=== PATIENT | female | born 1995 | race African-American/Black ===

== ENCOUNTER 2017-08-18 06:09 | Inpatient (IN) | payer SELFPAY ==
[2017-08-18] MEDS ORDERED: Carboprost Tromethamine 250 MCG/1 ML Amp IM PRN (06:22)
[2017-08-18] MEDS ORDERED: Water For Irrigation,Sterile 1,000 ML Container IRR PRN (06:22)
[2017-08-18] MEDS ORDERED: Misoprostol 200 MCG Tab PO PRN (06:22)
[2017-08-18] MEDS ORDERED: Methylergonovine 0.2 MG/1 ML Amp IM PRN (06:22)
[2017-08-18] MEDS ORDERED: Butorphanol 1 MG/ML SDV IVPUSH PRN (06:22)
[2017-08-18] MEDS ORDERED: Sodium Chloride 0.9% 2.5 ML Syringe FLUSH PRN (06:22)
[2017-08-18] MEDS ORDERED: Lidocaine 1% 50 ML MDV INJECT PRN (06:22)
[2017-08-18] MEDS ORDERED: Nalbuphine 10 MG/1 ML Vial IVPUSH PRN (06:22)
[2017-08-18] MEDS ORDERED: Sodium Chloride 0.9% 10 ML Syringe FLUSH PRN (06:22)
[2017-08-18] MEDS ORDERED: Oxytocin/0.9 % Sodium Chloride 30 UNIT/500 ML BAG IV SCH (06:30)
[2017-08-18] MEDS ORDERED: Lactated Ringers 1,000 ML IV SCH (06:30)
[2017-08-18] MEDS ORDERED: Docusate Sodium 100 MG Cap PO PRN (06:58)
[2017-08-18] MEDS ORDERED: oxyCODONE 5 MG Tab PO PRN (06:58)
[2017-08-18] MEDS ORDERED: Acetaminophen 500 MG Tab PO PRN ×2 (06:58)
[2017-08-18] MEDS ORDERED: Ibuprofen 400 MG Tab PO PRN (06:58)
[2017-08-18] MEDS ORDERED: Lanolin 100% Cream 7 GM Tube TOP PRN (06:58)
[2017-08-18] MEDS ORDERED: Bisacodyl 10 MG Supp RECTAL PRN (06:58)
[2017-08-18] MEDS ORDERED: Witch Hazel Medicated Pads 40/Jar TOP PRN (06:58)
[2017-08-18] MEDS ORDERED: Benzocaine/Menthol 20%-0.5% Spray 78 GM Cannister TOP PRN (06:58)
--- NOTE | 2017-08-18 06:58 | PCM.LDHP ---
L&D History of Present Illness - General Date of Service: 08/18/17 Admit Problem/Dx: Patient Status Order with Admit Dx/Problem 08/18/17 06:22 Patient Status [ADT] Routine Admission Diagnosis/Problem Admission Diagnosis/Problem Source of Information: Patient History Limitations: Reports: No Limitations - History of Present Illness Improves with: Reports: None Worsens with: Reports: None Associated Symptoms: Reports: N - Related Data Allergies/Adverse Reactions: Allergies Allergy/AdvReac Type Severity Reaction Status Date / Time No Known Allergies Allergy Verified 07/31/17 14:07 H&P Review of Systems - Review of Systems: Review Of Systems: See Below General: Reports: No Symptoms HEENT: Reports: No Symptoms Pulmonary: Reports: No Symptoms Cardiovascular: Reports: No Symptoms Gastrointestinal: Reports: No Symptoms Genitourinary: Reports: No Symptoms Musculoskeletal: Reports: No Symptoms Skin: Reports: No Symptoms Psychiatric: Reports: No Symptoms Neurological: Reports: No Symptoms Hematologic/Lymphatic: Reports: No Symptoms Immunologic: Reports: No Symptoms L&D Exam - Exam Exam: See Below - OB Specific Contraction Intensity: Moderate to Strong Movement: Active Heart Tones: Present Presentation: Vertex - Swanson Score Swanson Score Cervix Position: Anterior Swanson Score Consistency: Soft Swanson Score Effacement: >80% Swanson Score Dilation: > 5 cm Swanson Score Infant's Station: +1, +2 Swanson Score Total: 13 - Exam General: Alert, Oriented HEENT: PERRLA, Conjunctiva Clear, EACs Clear, EOMI, Hearing Intact, Mucosa Moist & [place], Nares Patent, Normal Nasal Septum, Posterior Pharynx Clear, TMs Clear Neck: Supple, Trachea Midline Lungs: Clear to Auscultation, Normal Respiratory Effort Cardiovascular: Regular Rate, Regular Rhythm GI/Abdominal Exam: Normal Bowel Sounds, Soft, Non-Tender, No Organomegaly, No Distention, No Abnormal Bruit, No Mass, Pelvis Stable Rectal Exam: Normal Exam, Normal Rectal Tone Genitourinary: Normal external exam, Normal bimanual exam, Normal speculum exam Back Exam: Normal Inspection, Full Range of Motion Extremities: Normal Inspection, Normal Range of Motion, Non-Tender, No Pedal Edema, Normal Capillary Refill Skin: Warm, Dry, Intact Neurological: Cranial Nerves Intact, Reflexes Equal Bilateral Psychiatric: Alert, Normal Affect, Normal Mood - Patient Data Lab Results Last 24 hrs: Laboratory Results - last 24 hr 08/18/17 Range/Units 06:28 WBC 15.75 H (4.0-11.0) K/uL RBC 3.48 L (4.30-5.90) M/uL Hgb 8.5 L (12.0-16.0) g/dL Hct 26.4 L (36.0-46.0) % MCV 75.9 L (80.0-98.0) fL MCH 24.4 L (27.0-32.0) pg MCHC 32.2 (31.0-37.0) g/dL RDW Std Deviation 40.0 (28.0-62.0) fl RDW Coeff of Alessandra 14 (11.0-15.0) % Plt Count 270 (150-400) K/uL MPV 8.90 (7.40-12.00) fL Nucleated RBC % 0.0 /100WBC Nucleated RBCs # 0 K/uL Result Diagrams: 08/18/17 06:28 Problem List Initiated/Reviewed/Updated: Yes Orders Last 24hrs: Active Orders 24 hr Category Date Time Status Patient Status [ADT] Routine ADT 08/18/17 06:22 Active Heart Tones [RC] CONTINUOUS Care 08/18/17 06:22 Active Non Stress Test [RC] PER UNIT ROUTINE Care 08/18/17 06:22 Active May Shower [RC] ASDIRECTED Care 08/18/17 06:22 Active Notify Provider [RC] PRN Care 08/18/17 06:22 Active Up ad Charito [RC] ASDIRECTED Care 08/18/17 06:22 Active Vaginal Exam [RC] PRN Care 08/18/17 06:22 Active Vital Signs [RC] PER UNIT ROUTINE Care 08/18/17 06:22 Active TYPE AND SCREEN [BBK] Routine Lab 08/18/17 06:28 Received Butorphanol [Stadol] Med 08/18/17 06:22 Active 1 mg IVPUSH Q1H PRN Carboprost Tromethamine [Hemabate DS] Med 08/18/17 06:22 Active 250 mcg IM ASDIRECTED PRN Lactated Ringers [Ringers, Lactated] 1,000 ml Med 08/18/17 06:30 Active IV ASDIRECTED Lidocaine 1% [Xylocaine 1%] Med 08/18/17 06:22 Active 50 ml INJECT .ONCE PRN Methylergonovine [Methergine] Med 08/18/17 06:22 Active 0.2 mg IM ASDIRECTED PRN Misoprostol [Cytotec] Med 08/18/17 06:22 Active 200 mcg PO .ONCE PRN Nalbuphine [Nubain] Med 08/18/17 06:22 Active 10 mg IVPUSH Q1H PRN Oxytocin/0.9 % Sodium Chloride [Oxytocin 30 Unit/500 ML Med 08/18/17 06:30 Active -NS] 30 unit in 500 ml IV TITRATE Sodium Chloride 0.9% [Saline Flush] Med 08/18/17 06:22 Active 10 ml FLUSH ASDIRECTED PRN Sodium Chloride 0.9% [Saline Flush] Med 08/18/17 06:22 Active 2.5 ml FLUSH ASDIRECTED PRN Water For Irrigation,Sterile [Sterile Water for Med 08/18/17 06:22 Active Irrigation] 1,000 ml IRR ASDIRECTED PRN Scalp Electrode [WOMSER] Per Unit Routine Oth 08/18/17 06:22 Ordered Peripheral IV Insertion Adult [OM.PC] Routine Oth 08/18/17 06:22 Ordered Resuscitation Status Routine Resus Stat 08/18/17 06:22 Ordered Medication Orders Butorphanol Tartrate (Stadol) 1 mg IVPUSH Q1H PRN PRN Reason: Pain Carboprost Tromethamine (Hemabate Ds) 250 mcg IM ASDIRECTED PRN PRN Reason: Post Hemorrhage Lactated Ringer's (Ringers, Lactated) 1,000 mls @ 150 mls/hr IV ASDIRECTED FE Oxytocin/Sodium Chloride (Oxytocin 30 Unit/500 Ml-Ns) 30 unit in 500 mls @ 999 mls/hr IV TITRATE FE Lidocaine HCl (Xylocaine 1%) 50 ml INJECT .ONCE PRN PRN Reason: Laceration repair Methylergonovine Maleate (Methergine) 0.2 mg IM ASDIRECTED PRN PRN Reason: Post Hemorrhage Misoprostol (Cytotec) 200 mcg PO .ONCE PRN PRN Reason: Post Hemorrhage Nalbuphine HCl (Nubain) 10 mg IVPUSH Q1H PRN PRN Reason: Pain (severe 7-10) Sodium Chloride (Saline Flush) 10 ml FLUSH ASDIRECTED PRN PRN Reason: Keep Vein Open Sodium Chloride (Saline Flush) 2.5 ml FLUSH ASDIRECTED PRN PRN Reason: Keep Vein Open Sterile Water (Sterile Water For Irrigation) 1,000 ml IRR ASDIRECTED PRN PRN Reason: delivery Assessment/Plan Comment:: On care. Hx of prematur delivery before. She think LMS is in mid 2016.
[2017-08-18] MEDS: Ibuprofen 800 MG Tab PO PRN ×2 (07:30→16:05)
--- NOTE | 2017-08-18 12:36 | OR ---
SURGEON: Eduard Valencia MD DATE OF PROCEDURE: Ms. Rice is 26. She had no care at all in this . She had previously 2 premature births. She presented to Labor and Delivery in active labor and she was complete, complete vertex and +1 to +2. According to the brief history from the patient, she thinks her last period is around January 20, 2017, which is would make her about 26-27 weeks. The patient is totally uncooperative. The heart rate was a category 1 and the patient was able to accomplish normal spontaneous vaginal delivery of male fetus, clear amniotic fluid without any problem. There was no tear. There was no laceration. The fetus cried immediately and handed to the finish off operator Dr. Johnson who was present at the time of the delivery for resuscitation. The score and weight are not available at this time. The placenta delivered spontaneous, complete, and intact and sent for histopathology. ESTIMATED BLOOD LOSS: 200 to 250 mL. There was no complication in the and a brief period of labor the patient was here. EVARISTO / SARAH /[id number]
--- NOTE | 2017-08-19 10:56 | PCM.DCSUM1 ---
Discharge Summary - Discharge Data Discharge Date: 08/19/17 Discharge Disposition: Home, Self-Care 01 Condition: Good - Patient Instructions Diet: Usual Diet as Tolerated Activity: As Tolerated Driving: Do Not Drive Showering/Bathing: May Shower - Discharge Plan - General Info Date of Service: 08/19/17 Functional Status: Reports: Pain Controlled - Review of Systems General: Reports: No Symptoms HEENT: Reports: No Symptoms Pulmonary: Reports: No Symptoms Cardiovascular: Reports: No Symptoms Gastrointestinal: Reports: No Symptoms Genitourinary: Reports: No Symptoms Musculoskeletal: Reports: No Symptoms Skin: Reports: No Symptoms Neurological: Reports: No Symptoms Psychiatric: Reports: No Symptoms - Patient Data Vitals - Most Recent: Last Vital Signs Temp 37.1 C 08/19/17 08:10 Pulse 64 08/19/17 08:10 Resp 14 08/19/17 08:10 BP 111/69 08/19/17 08:10 Pulse Ox 99 08/19/17 08:10 Weight - Most Recent: 57.153 kg Lab Results - Last 24 hrs: Laboratory Results - last 24 hr 08/19/17 Range/Units 05:11 Hgb 7.5 L (12.0-16.0) g/dL Hct 23.8 L (36.0-46.0) % Med Orders - Current: Current Medications Acetaminophen (Tylenol Extra Strength) 500 mg PO Q4H PRN PRN Reason: Pain Acetaminophen (Tylenol Extra Strength) 1,000 mg PO Q4H PRN PRN Reason: Pain Last Admin: 08/18/17 07:30 Dose: 1,000 mg Benzocaine/Menthol (Dermoplast Pain Relief 20%-0.5% [place]) 78 gm TOP ASDIRECTED PRN PRN Reason: Perineal Comfort Measure Bisacodyl (Dulcolax) 10 mg RECTAL .ONCE PRN PRN Reason: Constipation Butorphanol Tartrate (Stadol) 1 mg IVPUSH Q1H PRN PRN Reason: Pain Carboprost Tromethamine (Hemabate Ds) 250 mcg IM ASDIRECTED PRN PRN Reason: Post Hemorrhage Docusate Sodium (Colace) 100 mg PO BID PRN PRN Reason: Constipation Last Admin: 08/18/17 21:08 Dose: 100 mg Emollient Ointment (Lansinoh Hpa) 0 gm TOP ASDIRECTED PRN PRN Reason: Sore Nipples Lactated Ringer's (Ringers, Lactated) 1,000 mls @ 150 mls/hr IV ASDIRECTED [facility] Last Admin: 08/18/17 06:30 Dose: 150 mls/hr Oxytocin/Sodium Chloride (Oxytocin 30 Unit/500 Ml-Ns) 30 unit in 500 mls @ 999 mls/hr IV TITRATE [facility] Last Admin: 08/18/17 06:47 Dose: 999 mls/hr Ibuprofen (Motrin) 400 mg PO Q4H PRN PRN Reason: Pain Ibuprofen (Motrin) 800 mg PO Q6H PRN PRN Reason: Pain Last Admin: 08/18/17 16:05 Dose: 800 mg Lidocaine HCl (Xylocaine 1%) 50 ml INJECT .ONCE PRN PRN Reason: Laceration repair Methylergonovine Maleate (Methergine) 0.2 mg IM ASDIRECTED PRN PRN Reason: Post Hemorrhage Misoprostol (Cytotec) 200 mcg PO .ONCE PRN PRN Reason: Post Hemorrhage Nalbuphine HCl (Nubain) 10 mg IVPUSH Q1H PRN PRN Reason: Pain (severe 7-10) Oxycodone HCl (Oxycodone) 5 mg PO Q2H PRN PRN Reason: Pain Sodium Chloride (Saline Flush) 10 ml FLUSH ASDIRECTED PRN PRN Reason: Keep Vein Open Sodium Chloride (Saline Flush) 2.5 ml FLUSH ASDIRECTED PRN PRN Reason: Keep Vein Open Sterile Water (Sterile Water For Irrigation) 1,000 ml IRR ASDIRECTED PRN PRN Reason: delivery Witch [place] (Tucks) 1 pad TOP ASDIRECTED PRN PRN Reason: comfort care - Exam General: Reports: Alert, Oriented HEENT: Reports: Pupils Equal, Pupils Reactive, EOMI, Mucous Membr. Moist/[place] Neck: Reports: Supple Lungs: Reports: Clear to Auscultation, Normal Respiratory Effort Cardiovascular: Reports: Regular Rate, Regular Rhythm GI/Abdominal Exam: Normal Bowel Sounds, Soft, Non-Tender, No Organomegaly, No Distention, No Abnormal Bruit, No Mass, Pelvis Stable (Female) Exam: Normal External Exam, Normal Speculum Exam, Normal Bimanual Exam Rectal (Female) Exam: Normal Exam, Normal Rectal Tone Back Exam: Reports: Normal Inspection, Full Range of Motion Extremities: Normal Inspection, Normal Range of Motion, Non-Tender, No Pedal Edema, Normal Capillary Refill Skin: Reports: Warm, Dry, Intact Wound/Incisions: Reports: Healing Well Neurological: Reports: No New Focal Deficit Psy/Mental Status: Reports: Alert, Normal Affect, Normal Mood *Q Meaningful Use (DIS) - VTE *Q VTE Criteria *Q: - Stroke *Q Stroke Criteria *Q: - AMI *Q AMI Criteria *Q:
[2017-08-19] MEDS: Ibuprofen 800 MG Tab PO PRN (11:56)
== END 2017-08-19 12:05 | disposition home or self-care (01) | DRG 775 ==
LOC: MW.OBCHECK 06:09 → MW.OB 06:11 → MW.OBCHECK 06:22 → MW.OB 06:22 → OBSVTOIN 06:44 → MW.OB 11:30
PROVIDERS: ADMIT Obstetrics & Gynecology; ATTEND Obstetrics & Gynecology
PROC: 10E0XZZ Delivery of Products of Conception, External Approach (ICD-10-PCS; principal; 2017-08-18)
DX: O60.12X0 Preterm labor second trimester with preterm delivery second trimester, not applicable or unspecified (principal); O09.32 Supervision of pregnancy with insufficient antenatal care, second trimester; Z3A.27 27 weeks gestation of pregnancy; Z37.0 Single live birth
CPT/HCPCS: 36415; 80305; 85014; 85018; 85027; 86592; 86762; 86850; 86900; 86901; 87340; 87389; 88305; A9270-GY; J2590; J7120

== ENCOUNTER 2018-01-18 14:22 | Emergency (ER) | payer MEDICAID ==
--- NOTE | 2018-01-18 14:46 | EDM.PDOC ---
ED HPI GENERAL MEDICAL PROBLEM - General Chief Complaint: Abdominal Pain Stated Complaint: 15 WKS PAIN ISSUES Time Seen by Provider: 01/18/18 14:37 - History of Present Illness INITIAL COMMENTS - FREE TEXT/NARRATIVE: HISTORY AND PHYSICAL: History of present illness: The patient is a 22-year-old female who is a 6 para [id number] at approximately 15 weeks who presents with complaints of lower abdominal pelvic pain without vaginal bleeding that started today. The patient says she has not had sexual intercourse recently and she has not had vomiting or diarrhea and no urinary complaints. She follows at [facility]. She says that she feels woozy and just doesn't feel right but she is not passing out or blacking out and has no flank pain no chest pain no fevers chills chest pain or shortness of breath. Not taking anything for the pain. Review of systems: As per history of present illness and below otherwise all systems reviewed and negative. Past medical history: As per history of present illness and as reviewed below otherwise noncontributory. Surgical history: As per history of present illness and as reviewed below otherwise noncontributory. Social history: No reported history of drug or alcohol abuse. Family history: As per history of present illness and as reviewed below otherwise noncontributory. Physical exam: Dermal: Well-developed well-nourished thin female who is nontoxic and vital signs have been reviewed by me. Patient moves easily in the ED without distress HEENT: Atraumatic, normocephalic, , negative for conjunctival pallor or scleral icterus, mucous membranes moist, throat clear, neck supple, nontender, trachea midline. Lungs: Clear to auscultation, breath sounds equal bilaterally, chest nontender. Heart: S1S2, regular and rhythm no overt murmurs Abdomen: Soft, nondistended, bowel sounds are normoactive and there is mild discomfort with deep palpation in the lower abdomen area without localization right or left. Negative for masses or hepatosplenomegaly. Negative for costovertebral tenderness. Pelvis: Stable nontender. Genitourinary: Deferred. Rectal: Deferred. Extremities: Atraumatic, negative for cords or calf pain. Neurovascular unremarkable. Neuro: Awake, alert, oriented. Cranial nerves II through XII unremarkable. Cerebellum unremarkable. Motor and sensory unremarkable throughout. Exam nonfocal. Diagnostics: heart tones per nursing= 150s UA urine culture orthostatic vitals Pelvic ultrasound Therapeutics: [] This was discussed with Dr. Russ at 1535. She would like an ultrasound to be performed for cervical length and to be recontacted if it's less than 2.5 cm. Impression: Round ligament pain, UTI Definitive disposition and diagnosis as appropriate pending reevaluation and review of above. Lower Abdominal Pain Score (Numeric/FACES): 10 - Related Data Allergies Allergy/AdvReac Type Severity Reaction Status Date / Time No Known Allergies Allergy Verified 01/18/18 14:29 Home Meds: Home Meds . [No Known Home Meds] 01/18/18 [History] Past Medical History - Past Health History Medical/Surgical History: Denies Medical/Surgical History Hematologic History: Reports: Anemia - Infectious Disease History Infectious Disease History: Reports: None Social & Family History - Family History OBGYN: Reports: - Tobacco Use Smoking Status *Q: Never Smoker - Caffeine Use Caffeine Use: Reports: Coffee - Recreational Drug Use Recreational Drug Use: No ED ROS GENERAL - Review of Systems Review Of Systems: ROS reveals no pertinent complaints other than HPI. ED EXAM, GENERAL - Physical Exam Exam: See Below (See dictation) Course - Vital Signs Last Recorded V/S: Last Vital Signs Temp 36.8 C 01/18/18 14:30 Pulse 60 01/18/18 14:30 Resp 15 01/18/18 14:30 BP 138/38 L 01/18/18 14:30 Pulse Ox 98 01/18/18 14:30 Orthostatic Blood Pressure [ 133/78 Standing] Orthostatic Blood Pressure [ 127/78 Supine] - Orders/Labs/Meds Orders: Active Orders 24 hr Category Date Time Status Orthostatic Vital Signs [RC] ASDIRECTED Care 01/18/18 14:46 Active CULTURE URINE [RM] Stat Lab 01/18/18 14:45 Received Labs: Laboratory Tests 01/18/18 Range/Units 14:45 Urine Color YELLOW Urine Appearance SLT CLOUDY Urine pH 6.0 (5.0-8.0) Ur Specific [place] >= 1.030 (1.001-1.035) Urine Protein NEGATIVE (NEGATIVE) mg/dL Urine Glucose (UA) NEGATIVE (NEGATIVE) mg/dL Urine Ketones NEGATIVE (NEGATIVE) mg/dL Urine Occult Blood NEGATIVE (NEGATIVE) Urine Nitrite NEGATIVE (NEGATIVE) Urine Bilirubin NEGATIVE (NEGATIVE) Urine Urobilinogen 0.2 (<2.0) EU/dL Ur Leukocyte Esterase TRACE (NEGATIVE) Urine RBC 0-2 (0-2/HPF) Urine WBC 3-5 (0-5/HPF) Ur Epithelial Cells MODERATE (NONE-FEW) Urine Bacteria FEW (NEGATIVE) Departure - Departure Time of Disposition: 16:27 Disposition: Home, Self-Care 01 Condition: Good Clinical Impression: Pain of round ligament UTI (urinary tract infection) Qualifiers: Urinary tract infection type: site unspecified Hematuria presence: without hematuria Qualified Code(s): N39.0 - Urinary tract infection, site not specified - Discharge Information Referrals: Nestor Tran MD [Primary Care Provider] - Forms: ED Department Discharge Additional Instructions: The following information is given to patients seen in the emergency department who are being discharged to home. This information is to outline your options for follow-up care. We provide all patients seen in our emergency department with a follow-up referral. The need for follow-up, as well as the timing and circumstances, are variable depending upon the specifics of your emergency department visit. If you don't have a primary care physician on staff, we will provide you with a referral. We always advise you to contact your personal physician following an emergency department visit to inform them of the circumstance of the visit and for follow-up with them and/or the need for any referrals to a consulting specialist. The emergency department will also refer you to a specialist when appropriate. This referral assures that you have the opportunity for followup care with a specialist. All of these measure are taken in an effort to provide you with optimal care, which includes your followup. Under all circumstances we always encourage you to contact your private physician who remains a resource for coordinating your care. When calling for followup care, please make the office aware that this follow-up is from your recent emergency room visit. If for any reason you are refused follow-up, please contact the [facility] emergency department at and ask to speak to the emergency department charge nurse. [address] [address] These keep your appointment next week in the clinic . Please take antibiotics for the UTI until they're finished. Push hydration rest and return to ER as needed and as discussed. - My Orders Last 24 Hours: My Active Orders 01/18/18 14:45 CULTURE URINE [RM] Stat 01/18/18 14:46 Orthostatic Vital Signs [RC] ASDIRECTED - Assessment/Plan Last 24 Hours: My Active Orders 01/18/18 14:45 CULTURE URINE [RM] Stat 01/18/18 14:46 Orthostatic Vital Signs [RC] ASDIRECTED
--- NOTE | 2018-01-18 16:21 | US ---
EXAMINATION: Transvaginal symmetric ultrasound HISTORY: Pain COMPARISON: None TECHNIQUE: Grayscale and M-mode imaging obtained. FINDINGS/IMPRESSION: There is a single live intrauterine with a heart rate of 154 bpm. The cervical length measured by technologist is likely artificially exaggerated however estimation of the cervical length suggests a cervix of approximately 3.3 cm.
== END 2018-01-18 17:05 | disposition home or self-care (01) ==
LOC: MW.ED 14:22
DX: O23.42 Unspecified infection of urinary tract in pregnancy, second trimester (principal); Z3A.15 15 weeks gestation of pregnancy
CPT/HCPCS: 76817; 76817-26; 81001; 87086; 99284-25

== ENCOUNTER 2018-04-02 16:14 | Observation (INO) | payer SELFPAY ==
--- NOTE | 2018-04-02 16:28 | EDM.PDOC ---
ED HPI GENERAL MEDICAL PROBLEM - General Chief Complaint: Abdominal Pain Stated Complaint: FALL Time Seen by Provider: 04/02/18 16:28 Source of Information: Reports: Patient - History of Present Illness INITIAL COMMENTS - FREE TEXT/NARRATIVE: HISTORY AND PHYSICAL: History of present illness: [22-year-old female presents at 23 weeks with IUP Followed by Liliya Hong] Patient has been lightheaded and dizzy over the last couple of days she has previous hemoglobin on file she is appointed lower after a week Minimal exertion she passed out and fell today No fever nausea vomiting chills sweats Review of systems: As per history of present illness and below otherwise all systems reviewed and negative. Past medical history: As per history of present illness and as reviewed below otherwise noncontributory. Surgical history: As per history of present illness and as reviewed below otherwise noncontributory. Social history: No reported history of drug or alcohol abuse. Family history: As per history of present illness and as reviewed below otherwise noncontributory. Physical exam: HEENT: Atraumatic, normocephalic, pupils reactive, negative for conjunctival pallor or scleral icterus, mucous membranes moist, throat clear, neck supple, nontender, trachea midline. Lungs: Clear to auscultation, breath sounds equal bilaterally, chest nontender. Heart: S1S2, regular, negative for clicks, rubs, or JVD. Abdomen: Soft, nondistended, nontender. Negative for masses or hepatosplenomegaly. Negative for costovertebral tenderness. Pelvis: Stable nontender. Genitourinary: Deferred. Rectal: Deferred. Extremities: Atraumatic, negative for cords or calf pain. Neurovascular unremarkable. Neuro: Awake, alert, oriented. Cranial nerves II through XII unremarkable. Cerebellum unremarkable. Motor and sensory unremarkable throughout. Exam nonfocal. Diagnostics: [CBC CMP UA type and screen ]OB ultrasound performed Therapeutics: [Liter normal saline bolus followed by 1 25 mL per hour ] Dr. Calderón consult to evaluate and treat determined disposition Impression: [Symptomatic anemia [address] Calderón consult Chronic history of baseline ] Definitive disposition and diagnosis as appropriate pending reevaluation and review of above. abdomen Pain Score (Numeric/FACES): 10 - Related Data Allergies Allergy/AdvReac Type Severity Reaction Status Date / Time No Known Allergies Allergy Verified 09/25/18 16:25 Home Meds: Home Meds Iron 18 mg PO BID 03/18/18 [History] Ondansetron HCl [Zofran] 4 mg PO DAILY 03/18/18 [History] Pnv No.122/Iron/Folic Acid [ Multi Tablet] 1 each PO DAILY 03/18/18 [ History] Past Medical History - Past Health History Medical/Surgical History: Denies Medical/Surgical History Hematologic History: Reports: Anemia - Infectious Disease History Infectious Disease History: Reports: None Social & Family History - Family History OBGYN: Reports: - Caffeine Use Caffeine Use: Reports: Coffee ED ROS GENERAL - Review of Systems Review Of Systems: See Below ED EXAM, GENERAL - Physical Exam Exam: See Below Course - Vital Signs Last Recorded V/S: Last Vital Signs Temp 97.4 F 04/02/18 17:41 Pulse 76 04/02/18 17:41 Resp 18 04/02/18 17:41 BP 107/69 04/02/18 17:41 Pulse Ox 99 04/02/18 17:41 - Orders/Labs/Meds Labs: Laboratory Tests 04/02/18 04/02/18 04/02/18 Range/Units 17:00 17:00 17:08 WBC 12.78 H (4.0-11.0) K/uL RBC 3.34 L (4.30-5.90) M/uL Hgb 7.5 L (12.0-16.0) g/dL Hct 24.2 L (36.0-46.0) % MCV 72.5 L (80.0-98.0) fL MCH 22.5 L (27.0-32.0) pg MCHC 31.0 (31.0-37.0) g/dL RDW Std Deviation 41.2 (28.0-62.0) fl RDW Coeff of Alessandra 15 (11.0-15.0) % Plt Count 298 (150-400) K/uL MPV 9.10 (7.40-12.00) fL Neut % (Auto) 79.4 (48.0-80.0) % Lymph % (Auto) 11.5 L (16.0-40.0) % Motley % (Auto) 5.7 (0.0-15.0) % Eos % (Auto) 3.2 (0.0-7.0) % Baso % (Auto) 0.2 (0.0-1.5) % Neut # (Auto) 10.2 H (1.4-5.7) K/uL Lymph # (Auto) 1.5 (0.6-2.4) K/uL Motley # (Auto) 0.7 (0.0-0.8) K/uL Eos # (Auto) 0.4 (0.0-0.7) K/uL Baso # (Auto) 0.0 (0.0-0.1) K/uL Nucleated RBC % 0.0 /100WBC Nucleated RBCs # 0 K/uL Sodium (136-145) mmol/L Potassium (3.5-5.1) mmol/L Chloride (98-107) mmol/L Carbon Dioxide (21.0-32.0) mmol/L BUN (7.0-18.0) mg/dL Creatinine (0.6-1.0) mg/dL Est Cr Clr Drug Dosing mL/min Estimated GFR (MDRD) ml/min Glucose (74-106) mg/dL Calcium (8.5-10.1) mg/dL Iron (50-175) ug/dL TIBC (250-450) ug/dL % Saturation (20-55) % Ferritin (8-252) ng/mL Total Bilirubin (0.2-1.0) mg/dL AST (15-37) IU/L ALT (14-63) IU/L Alkaline Phosphatase (46-116) U/L Troponin I (0.000-0.056) ng/mL Total Protein (6.4-8.2) g/dL Albumin (3.4-5.0) g/dL Globulin (2.0-3.5) g/dL Albumin/Globulin Ratio (1.3-2.8) Lipase (73-393) U/L Urine Color YELLOW Urine Appearance SLT CLOUDY Urine pH 6.0 (5.0-8.0) Ur Specific Eure >= 1.030 (1.001-1.035) Urine Protein 100 (NEGATIVE) mg/dL Urine Glucose (UA) NEGATIVE (NEGATIVE) mg/dL Urine Ketones TRACE H (NEGATIVE) mg/dL Urine Occult Blood NEGATIVE (NEGATIVE) Urine Nitrite NEGATIVE (NEGATIVE) Urine Bilirubin NEGATIVE (NEGATIVE) Urine Urobilinogen 0.2 (<2.0) EU/dL Ur Leukocyte Esterase SMALL (NEGATIVE) Urine RBC 0-2 (0-2/HPF) Urine WBC 15-18 (0-5/HPF) Ur Epithelial Cells MANY (NONE-FEW) Urine Bacteria 4+ H (NEGATIVE) Urine Mucus LIGHT (NONE-MOD) Urine HCG, Qual POSITIVE (NEGATIVE) Blood Type Antibody Screen 04/02/18 04/02/18 04/02/18 Range/Units 17:08 17:08 18:55 WBC (4.0-11.0) K/uL RBC (4.30-5.90) M/uL Hgb (12.0-16.0) g/dL Hct (36.0-46.0) % MCV (80.0-98.0) fL MCH (27.0-32.0) pg MCHC (31.0-37.0) g/dL RDW Std Deviation (28.0-62.0) fl RDW Coeff of Alessandra (11.0-15.0) % Plt Count (150-400) K/uL MPV (7.40-12.00) fL Neut % (Auto) (48.0-80.0) % Lymph % (Auto) (16.0-40.0) % Motley % (Auto) (0.0-15.0) % Eos % (Auto) (0.0-7.0) % Baso % (Auto) (0.0-1.5) % Neut # (Auto) (1.4-5.7) K/uL Lymph # (Auto) (0.6-2.4) K/uL Motley # (Auto) (0.0-0.8) K/uL Eos # (Auto) (0.0-0.7) K/uL Baso # (Auto) (0.0-0.1) K/uL Nucleated RBC % /100WBC Nucleated RBCs # K/uL Sodium 136 (136-145) mmol/L Potassium 3.8 (3.5-5.1) mmol/L Chloride 104 (98-107) mmol/L Carbon Dioxide 23.4 (21.0-32.0) mmol/L BUN 9 (7.0-18.0) mg/dL Creatinine 0.8 (0.6-1.0) mg/dL Est Cr Clr Drug Dosing 94.44 mL/min Estimated GFR (MDRD) > 60.0 ml/min Glucose 88 (74-106) mg/dL Calcium 8.7 (8.5-10.1) mg/dL Iron 15 L (50-175) ug/dL TIBC 547 H (250-450) ug/dL % Saturation 2.74 L (20-55) % Ferritin 5 L (8-252) ng/mL Total Bilirubin 0.2 (0.2-1.0) mg/dL AST 24 (15-37) IU/L ALT 20 (14-63) IU/L Alkaline Phosphatase 132 H (46-116) U/L Troponin I < 0.050 (0.000-0.056) ng/mL Total Protein 6.9 (6.4-8.2) g/dL Albumin 2.8 L (3.4-5.0) g/dL Globulin 4.1 H (2.0-3.5) g/dL Albumin/Globulin Ratio 0.7 L (1.3-2.8) Lipase 166 (73-393) U/L Urine Color Urine Appearance Urine pH (5.0-8.0) Ur Specific Eure (1.001-1.035) Urine Protein (NEGATIVE) mg/dL Urine Glucose (UA) (NEGATIVE) mg/dL Urine Ketones (NEGATIVE) mg/dL Urine Occult Blood (NEGATIVE) Urine Nitrite (NEGATIVE) Urine Bilirubin (NEGATIVE) Urine Urobilinogen (<2.0) EU/dL Ur Leukocyte Esterase (NEGATIVE) Urine RBC (0-2/HPF) Urine WBC (0-5/HPF) Ur Epithelial Cells (NONE-FEW) Urine Bacteria (NEGATIVE) Urine Mucus (NONE-MOD) Urine HCG, Qual (NEGATIVE) Blood Type O POSITIVE Antibody Screen NEGATIVE Meds: Medications Discontinued Medications Generic Name Dose Route Start Last Admin Trade Name Freq PRN Reason Stop Dose Admin Acetaminophen 1,000 mg 04/03/18 00:06 Tylenol Extra Strength PO 04/03/18 00:07 ONETIME ONE Carboprost Tromethamine 250 mcg 04/02/18 20:14 Hemabate Ds IM ASDIRECTED PRN Post Hemorrhage Sodium Chloride 1,000 mls @ 125 mls/hr 04/02/18 19:15 04/03/18 03:45 Normal Saline IV 125 mls/hr STAT EF Administration Lactated Ringer's 1,000 mls @ 150 mls/hr 04/02/18 20:15 Ringers, Lactated IV ASDIRECTED FE Iron Sucrose 100 mg/ Sodium 105 mls @ 400 mls/hr 04/03/18 08:21 04/03/18 08: 50 Chloride IV 04/03/18 08:36 400 mls/hr ONETIME ONE Administration Sodium Chloride 10 ml 04/02/18 20:14 Saline Flush FLUSH ASDIRECTED PRN Keep Vein Open Sodium Chloride 2.5 ml 04/02/18 20:14 Saline Flush FLUSH ASDIRECTED PRN Keep Vein Open Departure - Departure Time of Disposition: 08:32 Disposition: Admitted As Inpatient 65 Condition: Good Clinical Impression: Anemia - Discharge Information
[2018-04-02 17:47] LABS: CHLORIDE,CL 104 mmol/L (98-107); SODIUM,NA 136 mmol/L (136-145)
[2018-04-02] MEDS: Sodium Chloride 0.9% 1,000 ML IV SCH (19:45)
[2018-04-02] MEDS ORDERED: Carboprost Tromethamine 250 MCG/1 ML Amp IM PRN (20:14)
[2018-04-02] MEDS ORDERED: Sodium Chloride 0.9% 10 ML Syringe FLUSH PRN (20:14)
[2018-04-02] MEDS ORDERED: Sodium Chloride 0.9% 2.5 ML Syringe FLUSH PRN (20:14)
[2018-04-02] MEDS ORDERED: Lactated Ringers 1,000 ML IV SCH (20:15)
--- NOTE | 2018-04-02 20:29 | PCM.LDHP ---
L&D History of Present Illness - General Date of Service: 04/02/18 Admit Problem/Dx: Patient Status Order with Admit Dx/Problem 04/02/18 20:14 Patient Status [ADT] Routine Admission Diagnosis/Problem Admission Diagnosis/Problem Anemia affecting 04/02/18 20:24 22 yo at ~26 weeks GA with high risk (4 previous births and history of 31 week demise) presents to ER after attempting to hang something up and while on her tiptoes, she became light headed and lost her balance. She fell and hit her abdomen on a vase. She denies contractions, vaginal bleeding. She notes movement. She has chronic anemia, hemoglobin has been around 8 and tonight is 7.5. Platelets are normal. Received iron transfusions 2 pregnancies ago. She has not been compliant with care this month due to medicaid lapsing. She has been taking her progesterone injections (has had 4 of them)-- just ran out this week. Source of Information: Patient - Related Data Allergies/Adverse Reactions: Allergies Allergy/AdvReac Type Severity Reaction Status Date / Time No Known Allergies Allergy Verified 04/02/18 16:25 Home Medications: Home Meds Iron 18 mg PO BID 03/18/18 [History] Ondansetron HCl [Zofran] 4 mg PO DAILY 03/18/18 [History] Pnv No.122/Iron/Folic Acid [ Multi Tablet] 1 each PO DAILY 03/18/18 [ History] Past Medical History - Past Health History Medical/Surgical History: Denies Medical/Surgical History Hematologic History: Reports: Anemia - Infectious Disease History Infectious Disease History: Reports: None Social & Family History - Family History Family Medical History: Noncontributory OBGYN: Reports: - Tobacco Use Smoking Status *Q: Never Smoker - Caffeine Use Caffeine Use: Reports: Coffee - Recreational Drug Use Recreational Drug Use: No H&P Review of Systems - Review of Systems: Review Of Systems: See Below General: Denies: Fever, Chills Pulmonary: Denies: Shortness of Breath, Wheezing Cardiovascular: Reports: Syncope (near syncopal event tonight). Denies: Chest Pain, Palpitations, Dyspnea on Exertion, Lightheadedness Gastrointestinal: Denies: Abdominal Pain, Constipation, Diarrhea, Decreased Appetite, Difficulty Swallowing Genitourinary: Reports: No Symptoms Musculoskeletal: Reports: No Symptoms Skin: Reports: No Symptoms Neurological: Denies: Confusion, Dizziness, Headache, Numbness, Paresthesia Hematologic/Lymphatic: Reports: Anemia L&D Exam - Exam Exam: See Below - Vital Signs Vital Signs: Last Vital Signs Temp 36.3 C 04/02/18 17:41 Pulse 76 04/02/18 17:41 Resp 18 04/02/18 17:41 BP 107/69 04/02/18 17:41 Pulse Ox 99 04/02/18 17:41 Weight: 58.06 kg - OB Specific Fundal Height In cm: 25 - Exam General: Alert, Oriented Neck: Trachea Midline Lungs: Clear to Auscultation, Normal Respiratory Effort Cardiovascular: Regular Rate, Regular Rhythm GI/Abdominal Exam: Soft, Non-Tender, No Distention Back Exam: No: CVA Tenderness (L), CVA Tenderness (R) Extremities: Pedal Edema (trace). No: Enma's Sign Skin: Warm, Dry, Intact Psychiatric: Alert, Normal Affect - Patient Data Lab Results Last 24 hrs: Laboratory Results - last 24 hr 04/02/18 04/02/18 04/02/18 Range/Units 17:00 17:00 17:08 WBC 12.78 H (4.0-11.0) K/uL RBC 3.34 L (4.30-5.90) M/uL Hgb 7.5 L (12.0-16.0) g/dL Hct 24.2 L (36.0-46.0) % MCV 72.5 L (80.0-98.0) fL MCH 22.5 L (27.0-32.0) pg MCHC 31.0 (31.0-37.0) g/dL RDW Std Deviation 41.2 (28.0-62.0) fl RDW Coeff of Alessandra 15 (11.0-15.0) % Plt Count 298 (150-400) K/uL MPV 9.10 (7.40-12.00) fL Neut % (Auto) 79.4 (48.0-80.0) % Lymph % (Auto) 11.5 L (16.0-40.0) % Early % (Auto) 5.7 (0.0-15.0) % Eos % (Auto) 3.2 (0.0-7.0) % Baso % (Auto) 0.2 (0.0-1.5) % Neut # (Auto) 10.2 H (1.4-5.7) K/uL Lymph # (Auto) 1.5 (0.6-2.4) K/uL Early # (Auto) 0.7 (0.0-0.8) K/uL Eos # (Auto) 0.4 (0.0-0.7) K/uL Baso # (Auto) 0.0 (0.0-0.1) K/uL Nucleated RBC % 0.0 /100WBC Nucleated RBCs # 0 K/uL Sodium (136-145) mmol/L Potassium (3.5-5.1) mmol/L Chloride (98-107) mmol/L Carbon Dioxide (21.0-32.0) mmol/L BUN (7.0-18.0) mg/dL Creatinine (0.6-1.0) mg/dL Est Cr Clr Drug Dosing mL/min Estimated GFR (MDRD) ml/min Glucose (74-106) mg/dL Calcium (8.5-10.1) mg/dL Total Bilirubin (0.2-1.0) mg/dL AST (15-37) IU/L ALT (14-63) IU/L Alkaline Phosphatase (46-116) U/L Troponin I (0.000-0.056) ng/mL Total Protein (6.4-8.2) g/dL Albumin (3.4-5.0) g/dL Globulin (2.0-3.5) g/dL Albumin/Globulin Ratio (1.3-2.8) Lipase (73-393) U/L Urine Color YELLOW Urine Appearance SLT CLOUDY Urine pH 6.0 (5.0-8.0) Ur Specific [place] >= 1.030 (1.001-1.035) Urine Protein 100 (NEGATIVE) mg/dL Urine Glucose (UA) NEGATIVE (NEGATIVE) mg/dL Urine Ketones TRACE H (NEGATIVE) mg/dL Urine Occult Blood NEGATIVE (NEGATIVE) Urine Nitrite NEGATIVE (NEGATIVE) Urine Bilirubin NEGATIVE (NEGATIVE) Urine Urobilinogen 0.2 (<2.0) EU/dL Ur Leukocyte Esterase SMALL (NEGATIVE) Urine RBC 0-2 (0-2/HPF) Urine WBC 15-18 (0-5/HPF) Ur Epithelial Cells MANY (NONE-FEW) Urine Bacteria 4+ H (NEGATIVE) Urine Mucus LIGHT (NONE-MOD) Urine HCG, Qual POSITIVE (NEGATIVE) 04/02/18 Range/Units 17:08 WBC (4.0-11.0) K/uL RBC (4.30-5.90) M/uL Hgb (12.0-16.0) g/dL Hct (36.0-46.0) % MCV (80.0-98.0) fL MCH (27.0-32.0) pg MCHC (31.0-37.0) g/dL RDW Std Deviation (28.0-62.0) fl RDW Coeff of Alessandra (11.0-15.0) % Plt Count (150-400) K/uL MPV (7.40-12.00) fL Neut % (Auto) (48.0-80.0) % Lymph % (Auto) (16.0-40.0) % Early % (Auto) (0.0-15.0) % Eos % (Auto) (0.0-7.0) % Baso % (Auto) (0.0-1.5) % Neut # (Auto) (1.4-5.7) K/uL Lymph # (Auto) (0.6-2.4) K/uL Early # (Auto) (0.0-0.8) K/uL Eos # (Auto) (0.0-0.7) K/uL Baso # (Auto) (0.0-0.1) K/uL Nucleated RBC % /100WBC Nucleated RBCs # K/uL Sodium 136 (136-145) mmol/L Potassium 3.8 (3.5-5.1) mmol/L Chloride 104 (98-107) mmol/L Carbon Dioxide 23.4 (21.0-32.0) mmol/L BUN 9 (7.0-18.0) mg/dL Creatinine 0.8 (0.6-1.0) mg/dL Est Cr Clr Drug Dosing 94.44 mL/min Estimated GFR (MDRD) > 60.0 ml/min Glucose 88 (74-106) mg/dL Calcium 8.7 (8.5-10.1) mg/dL Total Bilirubin 0.2 (0.2-1.0) mg/dL AST 24 (15-37) IU/L ALT 20 (14-63) IU/L Alkaline Phosphatase 132 H (46-116) U/L Troponin I < 0.050 (0.000-0.056) ng/mL Total Protein 6.9 (6.4-8.2) g/dL Albumin 2.8 L (3.4-5.0) g/dL Globulin 4.1 H (2.0-3.5) g/dL Albumin/Globulin Ratio 0.7 L (1.3-2.8) Lipase 166 (73-393) U/L Urine Color Urine Appearance Urine pH (5.0-8.0) Ur Specific [place] (1.001-1.035) Urine Protein (NEGATIVE) mg/dL Urine Glucose (UA) (NEGATIVE) mg/dL Urine Ketones (NEGATIVE) mg/dL Urine Occult Blood (NEGATIVE) Urine Nitrite (NEGATIVE) Urine Bilirubin (NEGATIVE) Urine Urobilinogen (<2.0) EU/dL Ur Leukocyte Esterase (NEGATIVE) Urine RBC (0-2/HPF) Urine WBC (0-5/HPF) Ur Epithelial Cells (NONE-FEW) Urine Bacteria (NEGATIVE) Urine Mucus (NONE-MOD) Urine HCG, Qual (NEGATIVE) Result Diagrams: 04/02/18 17:08 04/02/18 17:08 - Problem List (1) Anemia affecting SNOMED Code(s): 85169605 ICD Code: O99.019 - ANEMIA COMPLICATING , UNSPECIFIED TRIMESTER Status: Acute Current Visit: Yes Problem List Initiated/Reviewed/Updated: Yes Orders Last 24hrs: Active Orders 24 hr Category Date Time Status Patient Status [ADT] Routine ADT 04/02/18 20:14 Ordered Heart Tones [RC] ASDIRECTED Care 04/02/18 20:14 Ordered Non Stress Test [RC] PER UNIT ROUTINE Care 04/02/18 20:14 Ordered May Shower [RC] ASDIRECTED Care 04/02/18 20:14 Ordered Notify Provider Consults [RC] ASDIRECTED Care 04/02/18 19:02 Active Notify Provider [RC] PRN Care 04/02/18 20:14 Ordered Up ad Charito [RC] ASDIRECTED Care 04/02/18 20:14 Ordered Vaginal Exam [RC] PRN Care 04/02/18 20:14 Ordered Vital Signs [RC] PER UNIT ROUTINE Care 04/02/18 20:14 Ordered Consult to Case Management/Supervisor Engraving [CONS] Cons 04/02/18 20:14 Ordered Routine Consult to Physician [CONS] Stat Cons 04/02/18 19:01 Active Regular Diet [DIET] Diet 04/02/18 Dinner Ordered BPP w NST [US] Urgent Exams 04/02/18 20:14 Ordered OB 2 Or 3 Tri Sgl 1st Gest [US] Stat Exams 04/02/18 16:28 Taken CULTURE URINE [RM] Stat Lab 04/02/18 17:00 Received FERRITIN [CHEM] Stat Lab 04/02/18 20:18 Ordered FOLATE, RBC [REF] Urgent Lab 04/02/18 20:19 Ordered IRON/TIBC [CHEM] Stat Lab 04/02/18 20:19 Ordered TYPE AND SCREEN [BBK] Stat Lab 04/02/18 18:55 Received Carboprost Tromethamine [Hemabate DS] Med 04/02/18 20:14 Ordered 250 mcg IM ASDIRECTED PRN Lactated Ringers @ 150 MLS/HR(1000ml) Med 04/02/18 20:15 Ordered Lactated Ringers [Ringers, Lactated] 1,000 ml IV ASDIRECTED Sodium Chloride 0.9% [Normal Saline] 1,000 ml Med 04/02/18 19:15 Active IV STAT Sodium Chloride 0.9% [Saline Flush] Med 04/02/18 20:14 Ordered 10 ml FLUSH ASDIRECTED PRN Sodium Chloride 0.9% [Saline Flush] Med 04/02/18 20:14 Ordered 2.5 ml FLUSH ASDIRECTED PRN Peripheral IV Insertion Adult [OM.PC] Routine Oth 04/02/18 20:14 Ordered Resuscitation Status Routine Resus Stat 04/02/18 20:14 Ordered Medication Orders Carboprost Tromethamine (Hemabate Ds) 250 mcg IM ASDIRECTED PRN PRN Reason: Post Hemorrhage Sodium Chloride (Normal Saline) 1,000 mls @ 125 mls/hr IV STAT FE Last Admin: 04/02/18 19:45 Dose: 125 mls/hr Lactated Ringer's (Ringers, Lactated) 1,000 mls @ 150 mls/hr IV ASDIRECTED FE Sodium Chloride (Saline Flush) 10 ml FLUSH ASDIRECTED PRN PRN Reason: Keep Vein Open Sodium Chloride (Saline Flush) 2.5 ml FLUSH ASDIRECTED PRN PRN Reason: Keep Vein Open Assessment/Plan Comment:: 26 week IUP Status post fall Anemia History of x 4 and 31 week demise Will observe patient, iv hydrate as urine has ketones. Hemoglobin is down to 7.5 with normal platelets. Electrolytes are reassuring. BPP this pm, NST every 6 hours. Obtain some follow up labs--don't believe a blood transfusion is indicated at this time, but most likely will need iv iron therapy. Will obtain social service consult to help facilitate medicaid follow up, as patient is very high risk and needs to continue with course of care for this . Will try to see if patient has had a hemoglobin electrophoresis in the past. She believes she has. Patient is comfortable with plan of care. Ambulate with assistance this pm.
[2018-04-03] MEDS ORDERED: Acetaminophen 500 MG Tab PO ONE (00:06)
[2018-04-03] MEDS: Sodium Chloride 0.9% 1,000 ML IV SCH (03:45)
[2018-04-03] MEDS ORDERED: Iron Sucrose Complex 100 MG in Sodium Chloride 0.9% 100 ML IV ONE (08:21)
--- NOTE | 2018-04-03 09:32 | US ---
EXAM DATE: 04/02/18 PATIENT'S AGE: 22 Patient: GUCCI JAFFE Facility: [place], [place] Site . Site : 1995 Study: US OB Pelvis [id number]/[id number] 4:52:15 PM Ordering Physician: Julio Wilson Final Report: INDICATION: Fell. General abdominal pain for 1 day. TECHNIQUE: Sonographic images were obtained through a gravid uterus. COMPARISON: 03/17/2018. FINDINGS: There is a single living intrauterine in a vertex presentation. heart rate is 161 beats per minute. Placenta is anterior without evidence of abruption. ASIF is normal at 10.8 cm. IMPRESSION: 1. Single living intrauterine in a vertex presentation. 2. heart rate 161 beats per minute. 3. Anterior placenta without evidence of abruption. 4. ASIF and normal at 10.8 cm. Dictated by Elie Wei MD @ Apr 02 2018 5:22PM (Electronic Signature) Report Signed by Proxy. SHEILA
--- NOTE | 2018-04-03 12:38 | US ---
EXAM DATE: 04/02/18 PATIENT'S AGE: 22 Patient: GUCCI JAFFE Facility: [place], [place] Site . Site : 1995 Study: US OB Pelvis [id number]/26/[id number] 1:26:27 AM Ordering Physician: Julio Wilson Final Report: INDICATION: Fall TECHNIQUE: Limited transabdominal obstetrical ultrasound with biophysical profile. COMPARISON: 04/02/2018 FINDINGS: A single live intrauterine gestation is again visualized. measurements are not performed and anatomy is not evaluated. There is cardiac activity with a heart rate of 136 BPM. The placenta is anterior, incompletely evaluated. Amniotic fluid volume is within normal limits with an ASIF of 11.4 cm. A biophysical profile was performed with a score of 2/2 for movement, breathing, tone and amniotic fluid volume, and a total score of 8/ 8. The cervix is not visualized. No significant free fluid is seen. IMPRESSION: A single live intrauterine gestation. A biophysical profile score of 8/8. anatomy is not evaluated. Followup as indicated. Dictated by Bandar Way MD @ 04/03/2018 1:31:43 AM Dictated by: Bandar Way MD @ 04/03/2018 01:31:46 (Electronic Signature) Report Signed by Proxy. SHEILA
== END 2018-04-03 10:15 | disposition home or self-care (01) ==
LOC: MW.ED 16:14 → MW.OB 20:14
PROVIDERS: ADMIT Obstetrics & Gynecology; ATTEND Obstetrics & Gynecology
DX: O99.012 Anemia complicating pregnancy, second trimester (principal); D64.9 Anemia, unspecified; Z3A.26 26 weeks gestation of pregnancy; Z87.51 Personal history of pre-term labor
CPT/HCPCS: 36415; 59025; 76805; 76818; 80053; 81001; 81025; 82728; 82747; 83550; 83690; 84484; 85014; 85025; 86850; 86900; 86901; 87086; 96361; 96365; 99285; G0378; J1756; J7030; J7040; 96360

== ENCOUNTER 2018-09-24 12:03 | Emergency (ER) | payer SELFPAY ==
--- NOTE | 2018-09-24 12:15 | EDM.PDOC ---
ED HPI GENERAL MEDICAL PROBLEM - General Chief Complaint: General Stated Complaint: DIZZY Time Seen by Provider: 09/24/18 12:12 Source of Information: Reports: Patient History Limitations: Reports: No Limitations - History of Present Illness INITIAL COMMENTS - FREE TEXT/NARRATIVE: HISTORY AND PHYSICAL: History of present illness: Patient is a 23-year-old female who presents to the emergency room today with complaints of dizziness. Patient does state she has a history of anemia and has had symptoms like this with the previous . Her last menstrual period was the end of July and has her first OB appointment with Dr. Valencia later this month. She denies any vaginal bleeding/discharge or abdominal pain/ cramping. Has no OB related concerns. She denies any fever, chills, chest pain, shortness of breath or cough. Denies any abdominal pain, nausea, vomiting, diarrhea, constipation or dysuria. She has been eating and drinking appropriately. Review of systems: As per history of present illness and below otherwise all systems reviewed and negative. Past medical history: As per history of present illness and as reviewed below otherwise noncontributory. Surgical history: As per history of present illness and as reviewed below otherwise noncontributory. Social history: See social history for further information Family history: As per history of present illness and as reviewed below otherwise noncontributory. Physical exam: General: Well-developed and well-nourished 23-year-old female. Alert and oriented. Nontoxic appearing and in no acute distress. HEENT: Atraumatic, normocephalic, pupils equal and reactive bilaterally, negative for conjunctival pallor or scleral icterus, mucous membranes moist, TMs normal bilaterally, throat clear, neck supple, nontender, trachea midline. No drooling or trismus noted. No meningeal signs. No hot potato voice noted. Lungs: Clear to auscultation, breath sounds equal bilaterally, chest nontender. Heart: S1S2, regular rate and rhythm without overt murmur Abdomen: Soft, nondistended, nontender. Negative for masses or hepatosplenomegaly. Negative for costovertebral tenderness. Pelvis: Stable nontender. Genitourinary: Deferred. Rectal: Deferred. Skin: Intact, warm, dry. No lesions or rashes noted. Extremities: Atraumatic, negative for cords or calf pain. Neurovascular unremarkable. Neuro: Awake, alert, oriented. Cranial nerves II through XII unremarkable. Cerebellum unremarkable. Motor and sensory unremarkable throughout. Exam nonfocal. Notes: Lab work is unremarkable with the exception of a UTI.. Bedside heart tones are 140s. She has no COMPUTER SUPPORT TECHNICIAN complaints. She does have a follow-up with Dr. Valencia. Supportive care measures were reviewed and discussed. Voices understanding and is agreeable to plan of care. Denies any further questions or concerns at this time. Diagnostics: CBC, CMP, UA, urine quadrant, orthostatic vital signs Therapeutics: IV fluid Prescription: None Impression: Dizziness Plan: 1. Increase fluids. Position changes slowly area make sure you're eating nutritious small frequent meals 2. Take your antibiotic as directed. Zofran as needed for nausea management. 3. Follow up with Dr Valencia as you have already arranged. See your primary care provider as needed. Return to the ED as needed and as discussed. Definitive disposition and diagnosis as appropriate pending reevaluation and review of above. - Related Data Allergies Allergy/AdvReac Type Severity Reaction Status Date / Time No Known Allergies Allergy Verified 09/24/18 12:14 Home Meds: Home Meds Pnv No.122/Iron/Folic Acid [ Multi Tablet] 1 each PO DAILY 03/18/18 [ History] Past Medical History - Past Health History Medical/Surgical History: Denies Medical/Surgical History COMPUTER SUPPORT TECHNICIAN History: Reports: , Other (See Below) Other COMPUTER SUPPORT TECHNICIAN History: Premature deliveries x 4 Hematologic History: Reports: Anemia - Infectious Disease History Infectious Disease History: Reports: None Social & Family History - Family History Family Medical History: Noncontributory Cardiac: Reports: Hypertension OBGYN: Reports: - Caffeine Use Caffeine Use: Reports: Coffee ED ROS GENERAL - Review of Systems Review Of Systems: ROS reveals no pertinent complaints other than HPI. ED EXAM, GENERAL - Physical Exam Exam: See Below (See dictation) Course - Vital Signs Last Recorded V/S: Last Vital Signs Temp 97.6 F 09/24/18 12:15 Pulse 56 L 09/24/18 12:15 Resp 16 09/24/18 12:15 BP 130/79 09/24/18 12:15 Pulse Ox 100 09/24/18 12:15 - Orders/Labs/Meds Orders: Active Orders 24 hr Category Date Time Status CULTURE URINE [RM] Stat Lab 09/24/18 13:39 Received UA W/MICROSCOPIC [URIN] Stat Lab 09/24/18 13:39 Results Labs: Laboratory Tests 09/24/18 09/24/18 09/24/18 Range/Units 12:34 12:34 13:39 WBC 6.33 (4.0-11.0) K/uL RBC 4.16 L (4.30-5.90) M/uL Hgb 12.0 (12.0-16.0) g/dL Hct 34.8 L (36.0-46.0) % MCV 83.7 (80.0-98.0) fL MCH 28.8 (27.0-32.0) pg MCHC 34.5 (31.0-37.0) g/dL RDW Std Deviation 39.0 (28.0-62.0) fl RDW Coeff of Alessandra 13 (11.0-15.0) % Plt Count 265 (150-400) K/uL MPV 9.20 (7.40-12.00) fL Neut % (Auto) 64.6 (48.0-80.0) % Lymph % (Auto) 23.9 (16.0-40.0) % [place] % (Auto) 6.0 (0.0-15.0) % Eos % (Auto) 5.2 (0.0-7.0) % Baso % (Auto) 0.3 (0.0-1.5) % Neut # (Auto) 4.1 (1.4-5.7) K/uL Lymph # (Auto) 1.5 (0.6-2.4) K/uL [place] # (Auto) 0.4 (0.0-0.8) K/uL Eos # (Auto) 0.3 (0.0-0.7) K/uL Baso # (Auto) 0.0 (0.0-0.1) K/uL Nucleated RBC % 0.0 /100WBC Nucleated RBCs # 0 K/uL Sodium 137 (136-145) mmol/L Potassium 3.9 (3.5-5.1) mmol/L Chloride 105 (98-107) mmol/L Carbon Dioxide 21.7 (21.0-32.0) mmol/L BUN 6 L (7.0-18.0) mg/dL Creatinine 0.9 (0.6-1.0) mg/dL Est Cr Clr Drug Dosing 79.73 mL/min Estimated GFR (MDRD) > 60.0 ml/min Glucose 88 (74-106) mg/dL Calcium 8.6 (8.5-10.1) mg/dL Total Bilirubin 0.2 (0.2-1.0) mg/dL AST 18 (15-37) IU/L ALT 24 (14-63) IU/L Alkaline Phosphatase 103 (46-116) U/L Total Protein 7.2 (6.4-8.2) g/dL Albumin 3.4 (3.4-5.0) g/dL Globulin 3.8 (2.6-4.0) g/dL Albumin/Globulin Ratio 0.9 (0.9-1.6) HCG, Quant 240014.0 mIU/mL Urine Color YELLOW Urine Appearance CLEAR Urine pH 6.0 (5.0-8.0) Ur Specific [place] 1.025 (1.001-1.035) Urine Protein NEGATIVE (NEGATIVE) mg/dL Urine Glucose (UA) NEGATIVE (NEGATIVE) mg/dL Urine Ketones NEGATIVE (NEGATIVE) mg/dL Urine Occult Blood NEGATIVE (NEGATIVE) Urine Nitrite POSITIVE H (NEGATIVE) Urine Bilirubin NEGATIVE (NEGATIVE) Urine Urobilinogen 0.2 (<2.0) EU/dL Ur Leukocyte Esterase SMALL H (NEGATIVE) Meds: Medications Discontinued Medications Generic Name Dose Route Start Last Admin Trade Name Freq PRN Reason Stop Dose Admin Sodium Chloride 1,000 mls @ 999 mls/hr 09/24/18 12:21 09/24/18 12:39 Normal Saline IV 09/24/18 13:21 999 mls/hr STAT ONE Administration Departure - Departure Time of Disposition: 14:26 Disposition: Home, Self-Care 01 Clinical Impression: Dizziness UTI (urinary tract infection) Qualifiers: Urinary tract infection type: site unspecified Hematuria presence: without hematuria Qualified Code(s): N39.0 - Urinary tract infection, site not specified - Discharge Information Referrals: PCP,None [Primary Care Provider] - Forms: ED Department Discharge Additional Instructions: The following information is given to patients seen in the emergency department who are being discharged to home. This information is to outline your options for follow-up care. We provide all patients seen in our emergency department with a follow-up referral. The need for follow-up, as well as the timing and circumstances, are variable depending upon the specifics of your emergency department visit. If you don't have a primary care physician on staff, we will provide you with a referral. We always advise you to contact your personal physician following an emergency department visit to inform them of the circumstance of the visit and for follow-up with them and/or the need for any referrals to a consulting specialist. The emergency department will also refer you to a specialist when appropriate. This referral assures that you have the opportunity for follow-up care with a specialist. All of these measure are taken in an effort to provide you with optimal care, which includes your follow-up. Under all circumstances we always encourage you to contact your private physician who remains a resource for coordinating your care. When calling for follow-up care, please make the office aware that this follow-up is from your recent emergency room visit. If for any reason you are refused follow-up, please contact the [facility] Emergency Department at and asked to speak to the emergency department charge nurse. [facility] [address] [place] [id number] [address] 1. Increase fluids. Position changes slowly area make sure you're eating nutritious small frequent meals 2. Take your antibiotic as directed. Zofran as needed for nausea management. 3. Follow up with Dr Valencia as you have already arranged. See your primary care provider as needed. Return to the ED as needed and as discussed. - My Orders Last 24 Hours: My Active Orders 09/24/18 13:39 CULTURE URINE [RM] Stat UA W/MICROSCOPIC [URIN] Stat - Assessment/Plan Last 24 Hours: My Active Orders 09/24/18 13:39 CULTURE URINE [RM] Stat UA W/MICROSCOPIC [URIN] Stat
[2018-09-24] MEDS ORDERED: Sodium Chloride 0.9% 1,000 ML IV ONE (12:21)
[2018-09-24 13:27] LABS: CHLORIDE,CL 105 mmol/L (98-107); SODIUM,NA 137 mmol/L (136-145)
== END 2018-09-24 14:51 | disposition home or self-care (01) ==
LOC: MW.ED 12:03
DX: O99.89 Other specified diseases and conditions complicating pregnancy, childbirth and the puerperium (principal); R42 Dizziness and giddiness; O23.41 Unspecified infection of urinary tract in pregnancy, first trimester
CPT/HCPCS: 36415; 80053; 81001; 84702; 85025; 87086; 96360; 99284; J7040

== ENCOUNTER 2018-10-07 10:40 | Emergency (ER) | payer SELFPAY ==
[2018-10-07] MEDS ORDERED: Sodium Chloride 0.9% 2.5 ML Syringe FLUSH PRN (11:02)
[2018-10-07] MEDS ORDERED: Sodium Chloride 0.9% 10 ML Syringe FLUSH PRN (11:02)
[2018-10-07] MEDS ORDERED: Sodium Chloride 0.9% 1,000 ML IV ONE (11:45)
--- NOTE | 2018-10-07 13:59 | US ---
EXAMINATION: Transabdominal obstetric ultrasound HISTORY: COMPARISON: None TECHNIQUE: Grayscale, color Doppler and M-mode imaging obtained. FINDINGS: There is a single live intrauterine noted with a heart rate of 153 bpm. The crown-rump length measures 4.5 cm giving an estimated gestational age of 11 weeks and 2 days and estimated date of delivery at 04/26/2019. No evidence of a subchorionic hemorrhage. Ovaries appear normal. No significant free pelvic fluid. IMPRESSION: 1. Single live intrauterine .
--- NOTE | 2018-10-07 14:03 | EDM.PDOC ---
ED HPI GENERAL MEDICAL PROBLEM - General Chief Complaint: ANIMAL TRAINER Problem Stated Complaint: 11 WEEKS PREG AND BLEEDING Time Seen by Provider: 10/07/18 11:01 Source of Information: Reports: Patient History Limitations: Reports: No Limitations - History of Present Illness INITIAL COMMENTS - FREE TEXT/NARRATIVE: History of present illness: []Patient is a , 11 weeks by dates with an episode of vaginal bleeding when she wiped after urination. She then had lower abdominal cramping. Patient denies any fevers, chills, vomiting or diarrhea or urinary complaints. Review of systems: As per history of present illness and below otherwise all systems reviewed and negative. Past medical history: As per history of present illness and as reviewed below otherwise noncontributory. Surgical history: As per history of present illness and as reviewed below otherwise noncontributory. Social history: No reported history of drug or alcohol abuse. Family history: As per history of present illness and as reviewed below otherwise noncontributory. Physical exam: General: Well developed, well nourished in NAD HEENT: Atraumatic, normocephalic, pupils reactive, negative for conjunctival pallor or scleral icterus, mucous membranes moist, throat clear, neck supple, nontender, trachea midline. Lungs: Clear to auscultation, breath sounds equal bilaterally, chest nontender. Heart: S1S2, regular, negative for clicks, rubs, or JVD. Abdomen: NABS, Soft, nondistended, nontender. Negative for masses or hepatosplenomegaly. Negative for costovertebral tenderness. Pelvis: Stable nontender. Genitourinary: Deferred. Rectal: Deferred. Extremities: Atraumatic, negative for cords or calf pain. Neurovascular unremarkable. Neuro: Awake, alert, oriented. Cranial nerves II through XII unremarkable. Cerebellum unremarkable. Motor and sensory unremarkable throughout. Exam nonfocal. Skin:warm and dry Diagnostics: CBC, hCG Quant. RH- positive, OB ultrasound Therapeutics: IV hydration, Zofran ED Course: Stable Impression: Threatened Prescriptions: None Plan: Follow-up with women's health or return if symptoms worsen or change Definitive disposition and diagnosis as appropriate pending reevaluation and review of above. abdominal pain Pain Score (Numeric/FACES): 5 - Related Data Allergies Allergy/AdvReac Type Severity Reaction Status Date / Time No Known Allergies Allergy Verified 09/24/18 12:14 Home Meds: Home Meds Pnv No.122/Iron/Folic Acid [ Multi Tablet] 1 each PO DAILY 03/18/18 [ History] Past Medical History - Past Health History Medical/Surgical History: Denies Medical/Surgical History ANIMAL TRAINER History: Reports: , Other (See Below) Other ANIMAL TRAINER History: Premature deliveries x 4; Hematologic History: Reports: Anemia - Infectious Disease History Infectious Disease History: Reports: None Social & Family History - Family History Family Medical History: Noncontributory Cardiac: Reports: Hypertension OBGYN: Reports: - Tobacco Use Smoking Status *Q: Never Smoker Second Hand Smoke Exposure: No - Caffeine Use Caffeine Use: Reports: Coffee, Soda - Recreational Drug Use Recreational Drug Use: No ED ROS GENERAL - Review of Systems Review Of Systems: ROS reveals no pertinent complaints other than HPI. ED EXAM - Physical Exam Exam: See Below (See history of present illness) Course - Vital Signs Last Recorded V/S: Last Vital Signs Temp 97.4 F 10/07/18 11:48 Pulse 81 10/07/18 14:20 Resp 20 10/07/18 14:20 BP 115/62 10/07/18 14:20 Pulse Ox 98 10/07/18 14:20 - Orders/Labs/Meds Orders: Active Orders 24 hr Category Date Time Status Saline Lock Insert [OM.PC] Stat Oth 10/07/18 11:02 Ordered Labs: Laboratory Tests 10/07/18 10/07/18 10/07/18 Range/Units 11:27 11:27 11:27 WBC 7.71 (4.0-11.0) K/uL RBC 4.24 L (4.30-5.90) M/uL Hgb 12.1 (12.0-16.0) g/dL Hct 35.5 L (36.0-46.0) % MCV 83.7 (80.0-98.0) fL MCH 28.5 (27.0-32.0) pg MCHC 34.1 (31.0-37.0) g/dL RDW Std Deviation 39.3 (28.0-62.0) fl RDW Coeff of Alessandra 13 (11.0-15.0) % Plt Count 274 (150-400) K/uL MPV 9.10 (7.40-12.00) fL Neut % (Auto) 65.6 (48.0-80.0) % Lymph % (Auto) 21.5 (16.0-40.0) % [place] % (Auto) 6.5 (0.0-15.0) % Eos % (Auto) 6.1 (0.0-7.0) % Baso % (Auto) 0.3 (0.0-1.5) % Neut # (Auto) 5.1 (1.4-5.7) K/uL Lymph # (Auto) 1.7 (0.6-2.4) K/uL [place] # (Auto) 0.5 (0.0-0.8) K/uL Eos # (Auto) 0.5 (0.0-0.7) K/uL Baso # (Auto) 0.0 (0.0-0.1) K/uL Nucleated RBC % 0.0 /100WBC Nucleated RBCs # 0 K/uL HCG, Quant 239175.0 mIU/mL Urine Color Urine Appearance Urine pH (5.0-8.0) Ur Specific [place] (1.001-1.035) Urine Protein (NEGATIVE) mg/dL Urine Glucose (UA) (NEGATIVE) mg/dL Urine Ketones (NEGATIVE) mg/dL Urine Occult Blood (NEGATIVE) Urine Nitrite (NEGATIVE) Urine Bilirubin (NEGATIVE) Urine Urobilinogen (<2.0) EU/dL Ur Leukocyte Esterase (NEGATIVE) Urine RBC (0-2/HPF) Urine WBC (0-5/HPF) Ur Epithelial Cells (NONE-FEW) Urine Bacteria (NEGATIVE) Blood Type O POSITIVE 10/07/18 Range/Units 13:03 WBC (4.0-11.0) K/uL RBC (4.30-5.90) M/uL Hgb (12.0-16.0) g/dL Hct (36.0-46.0) % MCV (80.0-98.0) fL MCH (27.0-32.0) pg MCHC (31.0-37.0) g/dL RDW Std Deviation (28.0-62.0) fl RDW Coeff of Alessandra (11.0-15.0) % Plt Count (150-400) K/uL MPV (7.40-12.00) fL Neut % (Auto) (48.0-80.0) % Lymph % (Auto) (16.0-40.0) % [place] % (Auto) (0.0-15.0) % Eos % (Auto) (0.0-7.0) % Baso % (Auto) (0.0-1.5) % Neut # (Auto) (1.4-5.7) K/uL Lymph # (Auto) (0.6-2.4) K/uL [place] # (Auto) (0.0-0.8) K/uL Eos # (Auto) (0.0-0.7) K/uL Baso # (Auto) (0.0-0.1) K/uL Nucleated RBC % /100WBC Nucleated RBCs # K/uL HCG, Quant mIU/mL Urine Color YELLOW Urine Appearance CLEAR Urine pH 6.0 (5.0-8.0) Ur Specific [place] 1.010 (1.001-1.035) Urine Protein NEGATIVE (NEGATIVE) mg/dL Urine Glucose (UA) NEGATIVE (NEGATIVE) mg/dL Urine Ketones NEGATIVE (NEGATIVE) mg/dL Urine Occult Blood NEGATIVE (NEGATIVE) Urine Nitrite POSITIVE H (NEGATIVE) Urine Bilirubin NEGATIVE (NEGATIVE) Urine Urobilinogen 0.2 (<2.0) EU/dL Ur Leukocyte Esterase SMALL H (NEGATIVE) Urine RBC 0-1 (0-2/HPF) Urine WBC 2-4 (0-5/HPF) Ur Epithelial Cells FEW (NONE-FEW) Urine Bacteria FEW (NEGATIVE) Blood Type Meds: Medications Discontinued Medications Generic Name Dose Route Start Last Admin Trade Name Freq PRN Reason Stop Dose Admin Sodium Chloride 1,000 mls @ 999 mls/hr 10/07/18 11:45 10/07/18 11:55 Normal Saline IV 10/07/18 12:45 999 mls/hr .Bolus ONE Administration Sodium Chloride 10 ml 10/07/18 11:02 10/07/18 11:56 Saline Flush FLUSH 10 ml ASDIRECTED PRN Administration Keep Vein Open Sodium Chloride 2.5 ml 10/07/18 11:02 10/07/18 11:56 Saline Flush FLUSH 2.5 ml ASDIRECTED PRN Administration Keep Vein Open Departure - Departure Time of Disposition: 14:02 Disposition: Home, Self-Care 01 Condition: Good Clinical Impression: Threatened - Discharge Information *PRESCRIPTION DRUG MONITORING PROGRAM REVIEWED*: No *COPY OF PRESCRIPTION DRUG MONITORING REPORT IN PATIENT GAYLE: No Instructions: Threatened Miscarriage, [id number] Referrals: Hannah Frey CNM [Primary Care Provider] - Forms: ED Department Discharge Additional Instructions: The following information is given to patients seen in the emergency department who are being discharged to home. This information is to outline your options for follow-up care. We provide all patients seen in our emergency department with a follow-up referral. The need for follow-up, as well as the timing and circumstances, are variable depending upon the specifics of your emergency department visit. If you don't have a primary care physician on staff, we will provide you with a referral. We always advise you to contact your personal physician following an emergency department visit to inform them of the circumstance of the visit and for follow-up with them and/or the need for any referrals to a consulting specialist. The emergency department will also refer you to a specialist when appropriate. This referral assures that you have the opportunity for follow-up care with a specialist. All of these measure are taken in an effort to provide you with optimal care, which includes your follow-up. Under all circumstances we always encourage you to contact your private physician who remains a resource for coordinating your care. When calling for follow-up care, please make the office aware that this follow-up is from your recent emergency room visit. If for any reason you are refused follow-up, please contact the [facility] Emergency Department at and asked to speak to the emergency department charge nurse. Follow-up women's health [facility] - Women[facility] [address] [place] [id number] - My Orders Last 24 Hours: My Active Orders 10/07/18 11:02 Saline Lock Insert [OM.PC] Stat - Assessment/Plan Last 24 Hours: My Active Orders 10/07/18 11:02 Saline Lock Insert [OM.PC] Stat
== END 2018-10-07 14:15 | disposition home or self-care (01) ==
LOC: MW.ED 10:40
DX: O20.0 Threatened abortion (principal); Z3A.11 11 weeks gestation of pregnancy
CPT/HCPCS: 36415; 76801; 81001; 84702; 85025; 86900; 86901; 96360; 96361; 99284; J7040

== ENCOUNTER 2018-11-18 07:50 | Emergency (ER) | payer SELFPAY ==
--- NOTE | 2018-11-18 07:53 | EDM.PDOC ---
ED HPI GENERAL MEDICAL PROBLEM - General Chief Complaint: Abdominal Pain Stated Complaint: 17 WEEKS PREG. PAIN IN LOWER STOMACH AND BACK Time Seen by Provider: 11/18/18 07:52 Source of Information: Reports: Patient History Limitations: Reports: No Limitations - History of Present Illness INITIAL COMMENTS - FREE TEXT/NARRATIVE: History of present illness: []Patient has a at 17 weeks complaining of lower bilateral abdominal pain. Review of systems: As per history of present illness and below otherwise all systems reviewed and negative. Past medical history: As per history of present illness and as reviewed below otherwise noncontributory. Surgical history: As per history of present illness and as reviewed below otherwise noncontributory. Social history: No reported history of drug or alcohol abuse. Family history: As per history of present illness and as reviewed below otherwise noncontributory. Physical exam: General: Well developed, well nourished in NAD HEENT: Atraumatic, normocephalic, pupils reactive, negative for conjunctival pallor or scleral icterus, mucous membranes moist, throat clear, neck supple, nontender, trachea midline. Lungs: Clear to auscultation, breath sounds equal bilaterally, chest nontender. Heart: S1S2, regular, negative for clicks, rubs, or JVD. Abdomen: NABS, abdomen-the heart tones 156 by Doppler, Soft, nondistended, nontender. Negative for masses or hepatosplenomegaly. Negative for costovertebral tenderness. Pelvis: Stable nontender. Genitourinary: Deferred. Rectal: Deferred. Extremities: Atraumatic, negative for cords or calf pain. Neurovascular unremarkable. Neuro: Awake, alert, oriented. Cranial nerves II through XII unremarkable. Cerebellum unremarkable. Motor and sensory unremarkable throughout. Exam nonfocal. Skin:warm and dry Diagnostics: CBC, chemistry, UA and lipase Therapeutics: IV hydration ED Course: Stable Impression: UTI Prescriptions: Macrobid Plan: Take meds as directed, follow up with your primary care physician, return to ER if symptoms worsen or change. Definitive disposition and diagnosis as appropriate pending reevaluation and review of above. 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 ED EXAM, GI/ABD - Physical Exam Exam: See Below (See history of present illness) Course - Vital Signs Last Recorded V/S: Last Vital Signs Temp 96.8 F 11/18/18 07:59 Pulse 56 L 11/18/18 07:59 Resp 18 11/18/18 07:59 BP 122/70 11/18/18 07:59 Pulse Ox 98 11/18/18 07:59 - Orders/Labs/Meds Orders: Active Orders 24 hr Category Date Time Status Sodium Chloride 0.9% [Saline Flush] Med 11/18/18 08:04 Active 10 ml FLUSH ASDIRECTED PRN Sodium Chloride 0.9% [Saline Flush] Med 11/18/18 08:04 Active 2.5 ml FLUSH ASDIRECTED PRN Saline Lock Insert [OM.PC] Stat Oth 11/18/18 08:05 Ordered Medication Orders Sodium Chloride (Saline Flush) 10 ml FLUSH ASDIRECTED PRN PRN Reason: Keep Vein Open Last Admin: 11/18/18 08:14 Dose: 10 ml Sodium Chloride (Saline Flush) 2.5 ml FLUSH ASDIRECTED PRN PRN Reason: Keep Vein Open Last Admin: 11/18/18 08:14 Dose: 2.5 ml Labs: Laboratory Tests 11/18/18 11/18/18 11/18/18 Range/Units 08:16 08:16 09:00 WBC 8.12 (4.0-11.0) K/uL RBC 3.89 L (4.30-5.90) M/uL Hgb 10.8 L (12.0-16.0) g/dL Hct 32.9 L (36.0-46.0) % MCV 84.6 (80.0-98.0) fL MCH 27.8 (27.0-32.0) pg MCHC 32.8 (31.0-37.0) g/dL RDW Std Deviation 41.8 (28.0-62.0) fl RDW Coeff of Alessandra 14 (11.0-15.0) % Plt Count 254 (150-400) K/uL MPV 9.30 (7.40-12.00) fL Neut % (Auto) 67.6 (48.0-80.0) % Lymph % (Auto) 20.3 (16.0-40.0) % [place] % (Auto) 6.0 (0.0-15.0) % Eos % (Auto) 5.9 (0.0-7.0) % Baso % (Auto) 0.2 (0.0-1.5) % Neut # (Auto) 5.5 (1.4-5.7) K/uL Lymph # (Auto) 1.7 (0.6-2.4) K/uL [place] # (Auto) 0.5 (0.0-0.8) K/uL Eos # (Auto) 0.5 (0.0-0.7) K/uL Baso # (Auto) 0.0 (0.0-0.1) K/uL Nucleated RBC % 0.0 /100WBC Nucleated RBCs # 0 K/uL Sodium 137 (136-145) mmol/L Potassium 3.9 (3.5-5.1) mmol/L Chloride 104 (98-107) mmol/L Carbon Dioxide 22.3 (21.0-32.0) mmol/L BUN 10 (7.0-18.0) mg/dL Creatinine 0.9 (0.6-1.0) mg/dL Est Cr Clr Drug Dosing 79.73 mL/min Estimated GFR (MDRD) > 60.0 ml/min Glucose 91 (74-106) mg/dL Calcium 8.9 (8.5-10.1) mg/dL Total Bilirubin 0.3 (0.2-1.0) mg/dL AST 14 L (15-37) IU/L ALT 20 (14-63) IU/L Alkaline Phosphatase 112 (46-116) U/L Total Protein 7.2 (6.4-8.2) g/dL Albumin 3.2 L (3.4-5.0) g/dL Globulin 4.0 (2.6-4.0) g/dL Albumin/Globulin Ratio 0.8 L (0.9-1.6) Lipase 151 (73-393) U/L Urine Color YELLOW Urine Appearance CLEAR Urine pH 6.5 (5.0-8.0) Ur Specific [place] 1.015 (1.001-1.035) Urine Protein NEGATIVE (NEGATIVE) mg/dL Urine Glucose (UA) NEGATIVE (NEGATIVE) mg/dL Urine Ketones NEGATIVE (NEGATIVE) mg/dL Urine Occult Blood NEGATIVE (NEGATIVE) Urine Nitrite POSITIVE H (NEGATIVE) Urine Bilirubin NEGATIVE (NEGATIVE) Urine Urobilinogen 1.0 (<2.0) EU/dL Ur Leukocyte Esterase LARGE H (NEGATIVE) Urine RBC 0-1 (0-2/HPF) Urine WBC 35-40 (0-5/HPF) Ur Epithelial Cells FEW (NONE-FEW) Urine Bacteria FEW (NEGATIVE) Meds: Medications Generic Name Dose Route Start Last Admin Trade Name Freq PRN Reason Stop Dose Admin Sodium Chloride 10 ml 11/18/18 08:04 11/18/18 08:14 Saline Flush FLUSH 10 ml ASDIRECTED PRN Administration Keep Vein Open Sodium Chloride 2.5 ml 11/18/18 08:04 11/18/18 08:14 Saline Flush FLUSH 2.5 ml ASDIRECTED PRN Administration Keep Vein Open Discontinued Medications Generic Name Dose Route Start Last Admin Trade Name Freq PRN Reason Stop Dose Admin Sodium Chloride 1,000 mls @ 999 mls/hr 11/18/18 08:06 11/18/18 08:14 Normal Saline IV 11/18/18 09:06 999 mls/hr .Bolus ONE Administration Departure - Departure Time of Disposition: 09:46 Disposition: Home, Self-Care 01 Condition: Good Clinical Impression: UTI (urinary tract infection) Qualifiers: Urinary tract infection type: site unspecified Hematuria presence: without hematuria Qualified Code(s): N39.0 - Urinary tract infection, site not specified - Discharge Information *PRESCRIPTION DRUG MONITORING PROGRAM REVIEWED*: No *COPY OF PRESCRIPTION DRUG MONITORING REPORT IN PATIENT GAYLE: No Prescriptions: Nitrofurantoin Macrocrystal [Macrodantin] 100 mg PO BID #14 capsule Instructions: Urinary Tract Infection, Adult, [id number] Referrals: Eduard Valencia MD [Primary Care Provider] - Forms: ED Department Discharge Additional Instructions: The following information is given to patients seen in the emergency department who are being discharged to home. This information is to outline your options for follow-up care. We provide all patients seen in our emergency department with a follow-up referral. The need for follow-up, as well as the timing and circumstances, are variable depending upon the specifics of your emergency department visit. If you don't have a primary care physician on staff, we will provide you with a referral. We always advise you to contact your personal physician following an emergency department visit to inform them of the circumstance of the visit and for follow-up with them and/or the need for any referrals to a consulting specialist. The emergency department will also refer you to a specialist when appropriate. This referral assures that you have the opportunity for follow-up care with a specialist. All of these measure are taken in an effort to provide you with optimal care, which includes your follow-up. Under all circumstances we always encourage you to contact your private physician who remains a resource for coordinating your care. When calling for follow-up care, please make the office aware that this follow-up is from your recent emergency room visit. If for any reason you are refused follow-up, please contact the [facility] Emergency Department at and asked to speak to the emergency department charge nurse. Take meds as directed, follow up with your primary care physician, return to ER if symptoms worsen or change. [facility] [address] [place] [id number] - My Orders Last 24 Hours: My Active Orders 11/18/18 08:04 Sodium Chloride 0.9% [Saline Flush] 10 ml FLUSH ASDIRECTED PRN Sodium Chloride 0.9% [Saline Flush] 2.5 ml FLUSH ASDIRECTED PRN 11/18/18 08:05 Saline Lock Insert [OM.PC] Stat - Assessment/Plan Last 24 Hours: My Active Orders 11/18/18 08:04 Sodium Chloride 0.9% [Saline Flush] 10 ml FLUSH ASDIRECTED PRN Sodium Chloride 0.9% [Saline Flush] 2.5 ml FLUSH ASDIRECTED PRN 11/18/18 08:05 Saline Lock Insert [OM.PC] Stat
[2018-11-18] MEDS ORDERED: Sodium Chloride 0.9% 2.5 ML Syringe FLUSH PRN (08:04)
[2018-11-18] MEDS ORDERED: Sodium Chloride 0.9% 10 ML Syringe FLUSH PRN (08:04)
[2018-11-18] MEDS ORDERED: Sodium Chloride 0.9% 1,000 ML IV ONE (08:06)
[2018-11-18 09:09] LABS: CHLORIDE,CL 104 mmol/L (98-107); SODIUM,NA 137 mmol/L (136-145)
== END 2018-11-18 10:15 | disposition home or self-care (01) ==
LOC: MW.ED 07:50
DX: O23.42 Unspecified infection of urinary tract in pregnancy, second trimester (principal); Z3A.17 17 weeks gestation of pregnancy; Z79.899 Other long term (current) drug therapy
CPT/HCPCS: 36415; 80053; 81001; 83690; 85025; 96360; 99284; J7040

== ENCOUNTER 2018-12-01 14:26 | Emergency (ER) | payer SELFPAY ==
--- NOTE | 2018-12-01 14:33 | EDM.PDOC ---
ED HPI GENERAL MEDICAL PROBLEM - General Chief Complaint: Lower Extremity Injury/Pain Stated Complaint: INJURED LT LEG AND ANKLE Time Seen by Provider: 12/01/18 14:30 Source of Information: Reports: Patient History Limitations: Reports: No Limitations - History of Present Illness INITIAL COMMENTS - FREE TEXT/NARRATIVE: HISTORY AND PHYSICAL: History of present illness: Patient is a 23-year-old female who presents to the emergency room with complaints of left lower extremity pain. She states she was running up the stairs and had twisted her left lower extremity. She denies falling, hitting her head or having any loss of consciousness. 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 She denies any abdominal injury/trauma, vaginal bleeding or cramping. She does state she has moderate to severe pain which is causing her nausea. Review of systems: As per history of present illness and below otherwise all systems reviewed and negative. Past medical history: As per history of present illness and as reviewed below otherwise noncontributory. Surgical history: As per history of present illness and as reviewed below otherwise noncontributory. Social history: See social history for further information Family history: As per history of present illness and as reviewed below otherwise noncontributory. Physical exam: General: Well-developed and well-nourished 23-year-old female. Alert and oriented. Nontoxic appearing and in no acute distress. HEENT: Atraumatic, normocephalic, pupils equal and reactive bilaterally, negative for conjunctival pallor or scleral icterus, mucous membranes moist, trachea midline. No drooling or trismus noted. No meningeal signs. No hot potato voice noted. Lungs: Clear to auscultation, breath sounds equal bilaterally, chest nontender. Heart: S1S2, regular rate and rhythm without overt murmur Abdomen: Soft, nondistended, nontender. See notes for heart tones. Skin: Intact, warm, dry. No erythema or soft tissue swelling noted. No lesions or rashes noted. Extremities: Moves all extremities per self without difficulty or deficits, negative for cords or calf pain. Strong pedal pulses bilaterally. No knee or ankle discomfort. Neurovascular unremarkable. Neuro: Awake, alert, oriented. Cranial nerves II through XII unremarkable. Cerebellum unremarkable. Motor and sensory unremarkable throughout. Exam nonfocal. Notes: We discussed shielding the abdomen for x-ray, she is agreeable. Will give her Tylenol and Zofran at this time. See nursing notes for heart tones. X-ray shows no acute findings. We'll give crutches and chem walker boot for support. Supportive care measures were reviewed and discussed. Voices understanding and is agreeable to plan of care. Denies any further questions or concerns at this time. Diagnostics: Tib-fib x-ray Therapeutics: Tylenol, Zofran, CAM walker boot, crutches Prescription: None Impression: Left lower extremity injury Plan: 1. Rest, ice, elevate the affected extremity. Please wear the splint and use crutches as directed. 2. Tylenol as needed for pain management. 3. Follow up with the Orthopedic provider as we discussed. Return to the ED as needed and as discussed. Definitive disposition and diagnosis as appropriate pending reevaluation and review of above. 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: , Other (See Below) Other SWITCHBOARD OPERATOR History: Premature deliveries x 4; Musculoskeletal History: Reports: None Neurological History: Reports: None Psychiatric History: Reports: None Endocrine/Metabolic History: Reports: None Hematologic History: Reports: Anemia Immunologic History: Reports: None Oncologic (Cancer) History: Reports: None Dermatologic History: Reports: None - Infectious Disease History Infectious Disease History: Reports: None - Past Surgical History Head Surgeries/Procedures: Reports: None HEENT Surgical History: Reports: None Cardiovascular Surgical History: Reports: None Respiratory Surgical History: Reports: None GI Surgical History: Reports: None Female Surgical History: Reports: None Endocrine Surgical History: Reports: None Neurological Surgical History: Reports: None Musculoskeletal Surgical History: Reports: None Oncologic Surgical History: Reports: None Dermatological Surgical History: Reports: None Social & Family History - Family History Family Medical History: Noncontributory Cardiac: Reports: Hypertension OBGYN: Reports: - Caffeine Use Caffeine Use: Reports: Coffee, Soda Review of Systems - Review of Systems Review Of Systems: ROS reveals no pertinent complaints other than HPI. ED EXAM, GENERAL - Physical Exam Exam: See Below (See dictation) Course - Vital Signs Last Recorded V/S: Last Vital Signs Temp 97.3 F 12/01/18 14:41 Pulse 74 12/01/18 14:41 Resp 16 12/01/18 14:41 BP 126/80 12/01/18 14:41 Pulse Ox 98 12/01/18 14:41 - Orders/Labs/Meds Orders: Active Orders 24 hr Category Date Time Status Heart Tones [ Heart Rate] [RC] Click to Edit Care 12/01/18 14:53 Ordered DME for Discharge [COMM] Stat Oth 12/01/18 15:07 Ordered Meds: Medications Discontinued Medications Generic Name Dose Route Start Last Admin Trade Name Ju PRN Reason Stop Dose Admin Acetaminophen 650 mg 12/01/18 14:48 12/01/18 15:12 Tylenol PO 12/01/18 14:49 650 mg NOW ONE Administration Ondansetron HCl 4 mg 12/01/18 14:47 12/01/18 15:12 Zofran Odt PO 12/01/18 14:48 4 mg ONETIME ONE Administration Departure - Departure Time of Disposition: 15:14 Disposition: Home, Self-Care 01 Clinical Impression: Injury of left lower extremity Qualifiers: Encounter type: initial encounter Qualified Code(s): S89.92XA - Unspecified injury of left lower leg, initial encounter - Discharge Information Referrals: PCP,Unknown [Primary Care Provider] - Forms: ED Department Discharge Additional Instructions: The following information is given to patients seen in the emergency department who are being discharged to home. This information is to outline your options for follow-up care. We provide all patients seen in our emergency department with a follow-up referral. The need for follow-up, as well as the timing and circumstances, are variable depending upon the specifics of your emergency department visit. If you don't have a primary care physician on staff, we will provide you with a referral. We always advise you to contact your personal physician following an emergency department visit to inform them of the circumstance of the visit and for follow-up with them and/or the need for any referrals to a consulting specialist. The emergency department will also refer you to a specialist when appropriate. This referral assures that you have the opportunity for follow-up care with a specialist. All of these measure are taken in an effort to provide you with optimal care, which includes your follow-up. Under all circumstances we always encourage you to contact your private physician who remains a resource for coordinating your care. When calling for follow-up care, please make the office aware that this follow-up is from your recent emergency room visit. If for any reason you are refused follow-up, please contact the [facility] Emergency Department at and asked to speak to the emergency department charge nurse. [facility] [address] [place] [id number] [place] [address] 1. Rest, ice, elevate the affected extremity. Please wear the splint and use crutches as directed. 2. Tylenol as needed for pain management. 3. Follow up with the Orthopedic provider as we discussed. Return to the ED as needed and as discussed. - My Orders Last 24 Hours: My Active Orders 12/01/18 14:53 Heart Tones [ Heart Rate] [RC] Click to Edit 12/01/18 15:07 DME for Discharge [COMM] Stat - Assessment/Plan Last 24 Hours: My Active Orders 12/01/18 14:53 Heart Tones [ Heart Rate] [RC] Click to Edit 12/01/18 15:07 DME for Discharge [COMM] Stat
[2018-12-01] MEDS ORDERED: Ondansetron 4 MG Tab.DIS PO ONE (14:47)
[2018-12-01] MEDS ORDERED: Acetaminophen 325 MG Tab PO ONE (14:48)
--- NOTE | 2018-12-01 15:13 | CR ---
INDICATION: Fell down stairs. Middle of lower leg hurts. TECHNIQUE: Two views of the left tibia and fibula. FINDINGS: No acute fracture or dislocation in the left tibia or fibula. No abnormality is identified. Remainder negative. Dictated by Tim Raymond MD @ Dec 01 2018 3:09PM Signed by Dr. Tim Raymond @ Dec 01 2018 3:10PM
== END 2018-12-01 15:41 | disposition home or self-care (01) ==
LOC: MW.ED 14:26
DX: O9A.212 Injury, poisoning and certain other consequences of external causes complicating pregnancy, second trimester (principal); S89.92XA Unspecified injury of left lower leg, initial encounter; Z3A.19 19 weeks gestation of pregnancy; X50.1XXA Overexertion from prolonged static or awkward postures, initial encounter
CPT/HCPCS: 73590; 99283; A9270

== ENCOUNTER 2019-03-08 21:33 | Inpatient (IN) | payer SELFPAY ==
[2019-03-08] MEDS ORDERED: Terbutaline 1 MG/ML SDV SUBCUT ONE (22:31)
[2019-03-08] MEDS ORDERED: Lactated Ringers 1,000 ML IV ONE (22:32)
[2019-03-08] MEDS ORDERED: Terbutaline 1 MG/ML SDV ONE (22:33)
[2019-03-08] MEDS ORDERED: Azithromycin 250 MG Tab PO ONE (22:55)
[2019-03-08] MEDS ORDERED: Azithromycin 250 MG Tab ONE (22:58)
--- NOTE | 2019-03-08 23:21 | PCM.SN ---
- Free Text/Narrative Note: 23yo EDC 04/26/2019 33 0/7wks comes into L&D due to lower abdominal and vaginal cramping and pain that started several hours ago and was not relieved by OTC meds or warm bath. Admitted for observation. A: VSS, AF, FHT 140bpm Cat II tracing on admit due to repetitive decels with contractions. RUC q2-4 min, SVE 3-4/60/-3 intact. 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 Baamethaone given 02/26-02/27/2019. GBS swab obtained P: IV 1lt LR, Terb 0.25mcg sq, GBS swab, Azithromycin 1gm for pos chlamydia. Continue to monitor. If continued late decels will advise .
[2019-03-08] MEDS ORDERED: Ondansetron 4 MG/2 ML SDV IVPUSH PRN (23:41)
[2019-03-08] MEDS ORDERED: Ondansetron 4 MG/2 ML SDV ONE (23:43)
[2019-03-09] MEDS ORDERED: ceFAZolin 1 GM Vial ONE (00:20)
[2019-03-09] MEDS ORDERED: Morphine PF 10 MG/10 ML SDV ONE (00:22)
[2019-03-09] MEDS ORDERED: Octyl 2-Cyanoacrylate 1 Tube ONE (00:51)
[2019-03-09] MEDS ORDERED: Phenylephrine/Normal Saline 100 MCG/ML 10 ML Syringe ONE (01:00)
[2019-03-09] MEDS ORDERED: Lanolin 100% Cream 7 GM Tube TOP PRN (01:14)
[2019-03-09] MEDS ORDERED: Ondansetron 4 MG/2 ML SDV IVPUSH PRN ×2 (01:14→01:32)
[2019-03-09] MEDS ORDERED: Bisacodyl 10 MG Supp RECTAL PRN (01:14)
[2019-03-09] MEDS ORDERED: Acetaminophen/oxyCODONE 325-5 MG Tab PO PRN ×3 (01:14→01:32)
[2019-03-09] MEDS ORDERED: diphenhydrAMINE 50 MG/ML SDV IVPUSH PRN (01:14)
--- NOTE | 2019-03-09 01:14 | PCM.LDHP ---
L&D History of Present Illness - General Date of Service: 03/09/19 Admit Problem/Dx: Patient Status Order with Admit Dx/Problem 03/08/19 21:40 Patient Status [ADT] Routine Admission Diagnosis/Problem Admission Diagnosis/Problem Source of Information: Patient History Limitations: Reports: No Limitations - History of Present Illness Improves with: Reports: None Worsens with: Reports: None Associated Symptoms: Reports: N - Related Data Allergies/Adverse Reactions: Allergies Allergy/AdvReac Type Severity Reaction Status Date / Time No Known Allergies Allergy Verified 03/08/19 21:39 Home Medications: Home Meds Pnv No.122/Iron/Folic Acid [ Multi Tablet] 1 each PO DAILY 03/18/18 [ History] Iron 1 tab PO DAILY 11/18/18 [History] Past Medical History - Past Health History Medical/Surgical History: Denies Medical/Surgical History HEENT History: Reports: None Cardiovascular History: Reports: None Respiratory History: Reports: None Gastrointestinal History: Reports: None Genitourinary History: Reports: None 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: , Other (See Below) Other OB/BYN History: Premature deliveries x 4; Musculoskeletal History: Reports: None Neurological History: Reports: None Psychiatric History: Reports: None Endocrine/Metabolic History: Reports: None Hematologic History: Reports: Anemia Immunologic History: Reports: None Oncologic (Cancer) History: Reports: None Dermatologic History: Reports: None - Infectious Disease History Infectious Disease History: Reports: None - Past Surgical History Head Surgeries/Procedures: Reports: None HEENT Surgical History: Reports: None Cardiovascular Surgical History: Reports: None Respiratory Surgical History: Reports: None GI Surgical History: Reports: None Female Surgical History: Reports: None Endocrine Surgical History: Reports: None Neurological Surgical History: Reports: None Musculoskeletal Surgical History: Reports: None Oncologic Surgical History: Reports: None Dermatological Surgical History: Reports: None Social & Family History - Family History Family Medical History: Noncontributory Cardiac: Reports: Hypertension OBGYN: Reports: - Caffeine Use Caffeine Use: Reports: None H&P Review of Systems - Review of Systems: Review Of Systems: See Below General: Reports: No Symptoms HEENT: Reports: No Symptoms Pulmonary: Reports: No Symptoms Cardiovascular: Reports: No Symptoms Gastrointestinal: Reports: No Symptoms Genitourinary: Reports: No Symptoms Musculoskeletal: Reports: No Symptoms Skin: Reports: No Symptoms Psychiatric: Reports: No Symptoms Neurological: Reports: No Symptoms Hematologic/Lymphatic: Reports: No Symptoms Immunologic: Reports: No Symptoms L&D Exam - Exam Exam: See Below - Vital Signs Weight: 64.41 kg - OB Specific Fundal Height In cm: 32 Contraction Intensity: Mild to Moderate Movement: Active Heart Tones: Present Presentation: Vertex - Swanson Score Swanson Score Cervix Position: Anterior Swanson Score Consistency: Soft Swanson Score Effacement: >80% Swanson Score Dilation: 3-4 cm Swanson Score Infant's Station: -2 Swanson Score Total: 10 - Exam General: Alert, Oriented HEENT: PERRLA, Conjunctiva Clear, EACs Clear, EOMI, Hearing Intact, Mucosa Moist & Spring, Nares Patent, Normal Nasal Septum, Posterior Pharynx Clear, TMs Clear Neck: Supple, Trachea Midline Lungs: Clear to Auscultation, Normal Respiratory Effort Cardiovascular: Regular Rate, Regular Rhythm GI/Abdominal Exam: Normal Bowel Sounds, Soft, Non-Tender, No Organomegaly, No Distention, No Abnormal Bruit, No Mass, Pelvis Stable Rectal Exam: Normal Exam, Normal Rectal Tone Genitourinary: Normal external exam, Normal bimanual exam, Normal speculum exam Back Exam: Normal Inspection, Full Range of Motion Extremities: Normal Inspection, Normal Range of Motion, Non-Tender, No Pedal Edema, Normal Capillary Refill Skin: Warm, Dry, Intact Neurological: Cranial Nerves Intact, Reflexes Equal Bilateral Psychiatric: Alert, Normal Affect, Normal Mood - Patient Data Lab Results Last 24 hrs: Laboratory Results - last 24 hr 03/08/19 03/08/19 Range/Units 21:30 21:30 Urine Color YELLOW Urine Appearance HAZY Urine pH 6.5 (5.0-8.0) Ur Specific [place] 1.015 (1.001-1.035) Urine Protein NEGATIVE (NEGATIVE) mg/dL Urine Glucose (UA) NEGATIVE (NEGATIVE) mg/dL Urine Ketones NEGATIVE (NEGATIVE) mg/dL Urine Occult Blood NEGATIVE (NEGATIVE) Urine Nitrite NEGATIVE (NEGATIVE) Urine Bilirubin NEGATIVE (NEGATIVE) Urine Urobilinogen 0.2 (<2.0) EU/dL Ur Leukocyte Esterase SMALL H (NEGATIVE) Urine RBC 0-2 (0-2/HPF) Urine WBC 1-3 (0-5/HPF) Ur Epithelial Cells FEW (NONE-FEW) Urine Bacteria FEW (NEGATIVE) Urine Opiates Screen NEGATIVE (NEGATIVE) Ur Oxycodone Screen NEGATIVE (NEGATIVE) Urine Methadone Screen NEGATIVE (NEGATIVE) Ur Barbiturates Screen NEGATIVE (NEGATIVE) Ur Phencyclidine Scrn NEGATIVE (NEGATIVE) Ur Amphetamine Screen NEGATIVE (NEGATIVE) U Methamphetamines Scrn NEGATIVE (NEGATIVE) U Benzodiazepines Scrn NEGATIVE (NEGATIVE) U Cocaine Metab Screen NEGATIVE (NEGATIVE) U Marijuana (THC) Screen NEGATIVE (NEGATIVE) Problem List Initiated/Reviewed/Updated: Yes Orders Last 24hrs: Active Orders 24 hr Category Date Time Status Patient Status [ADT] Routine ADT 03/08/19 21:40 Active Non Stress Test [RC] PER UNIT ROUTINE Care 03/08/19 21:40 Active Up ad [place] [RC] ASDIRECTED Care 03/08/19 21:40 Active Vaginal Exam [RC] Click to Edit Care 03/08/19 21:40 Active Vital Signs [RC] PER UNIT ROUTINE Care 03/08/19 21:40 Active CULTURE GROUP B STREP [RM] Routine Lab 03/08/19 23:28 Received Ondansetron [Zofran] Med 03/08/19 23:41 Active 4 mg IVPUSH Q6H PRN Resuscitation Status Routine Resus Stat 03/08/19 21:40 Ordered Medication Orders Ondansetron HCl (Zofran) 4 mg IVPUSH Q6H PRN PRN Reason: Nausea/Vomiting Last Admin: 03/08/19 23:47 Dose: 4 mg Assessment/Plan Comment:: [id number] in labor with Category2 FAR.
[2019-03-09] MEDS ORDERED: Lactated Ringers 1,000 ML IV SCH (01:15)
--- NOTE | 2019-03-09 01:17 | PCM.OPNOTE ---
- General Post-Op/Procedure Note Date of Surgery/Procedure: 03/09/19 Operative Procedure(s): Primary C/section. Pre Op Diagnosis: [id number] in labor nonereassusing FAR. Post-Op Diagnosis: Same Anesthesia Technique: Spinal Primary Surgeon: Eduard Valencia Band Head Saw Operator: Hannah Frey EBL in mLs: 600 Complications: None Condition: Good
[2019-03-09] MEDS ORDERED: Naloxone 0.4 MG/ML Syringe IVPUSH PRN (01:32)
[2019-03-09] MEDS ORDERED: fentaNYL 100 MCG/2 ML SDV IVPUSH PRN (01:32)
--- NOTE | 2019-03-09 01:32 | PCM.PREANE ---
Preanesthetic Assessment - Anesthesia/Transfusion/Family Hx Anesthesia History: Prior Anesthesia Without Reaction Family History of Anesthesia Reaction: No Transfusion History: Prior Transfusion Without Reaction Intubation History: Unknown - Review of Systems General: No Symptoms Pulmonary: No Symptoms Cardiovascular: No Symptoms Gastrointestinal: No Symptoms Neurological: No Symptoms Other: Reports: None - Physical Assessment Height: 5 ft 3 in Weight: 64.41 kg ASA Class: 2 Mental Status: Alert & Oriented x3 Airway Class: Mallampati = 1 Dentition: Reports: Normal Dentition Thyro-Mental Finger Breadths: 3 Mouth Opening Finger Breadths: 3 ROM/Head Extension: Full Lungs: Clear to Auscultation, Normal Respiratory Effort Cardiovascular: Regular Rate, Regular Rhythm - Lab Values: Laboratory Last Values Urine Color YELLOW 03/08/19 21:30 Urine Appearance HAZY 03/08/19 21:30 Urine pH 6.5 (5.0-8.0) 03/08/19 21:30 Ur Specific [place] 1.015 (1.001-1.035) 03/08/19 21:30 Urine Protein NEGATIVE mg/dL (NEGATIVE) 03/08/19 21:30 Urine Glucose (UA) NEGATIVE mg/dL (NEGATIVE) 03/08/19 21:30 Urine Ketones NEGATIVE mg/dL (NEGATIVE) 03/08/19 21:30 Urine Occult Blood NEGATIVE (NEGATIVE) 03/08/19 21:30 Urine Nitrite NEGATIVE (NEGATIVE) 03/08/19 21:30 Urine Bilirubin NEGATIVE (NEGATIVE) 03/08/19 21:30 Urine Urobilinogen 0.2 EU/dL (<2.0) 03/08/19 21:30 Ur Leukocyte Esterase SMALL (NEGATIVE) H 03/08/19 21:30 Urine RBC 0-2 (0-2/HPF) 03/08/19 21:30 Urine WBC 1-3 (0-5/HPF) 03/08/19 21:30 Ur Epithelial Cells FEW (NONE-FEW) 03/08/19 21:30 Urine Bacteria FEW (NEGATIVE) 03/08/19 21:30 Urine Opiates Screen NEGATIVE (NEGATIVE) 03/08/19 21:30 Ur Oxycodone Screen NEGATIVE (NEGATIVE) 03/08/19 21:30 Urine Methadone Screen NEGATIVE (NEGATIVE) 03/08/19 21:30 Ur Barbiturates Screen NEGATIVE (NEGATIVE) 03/08/19 21:30 Ur Phencyclidine Scrn NEGATIVE (NEGATIVE) 03/08/19 21:30 Ur Amphetamine Screen NEGATIVE (NEGATIVE) 03/08/19 21:30 U Methamphetamines Scrn NEGATIVE (NEGATIVE) 03/08/19 21:30 U Benzodiazepines Scrn NEGATIVE (NEGATIVE) 03/08/19 21:30 U Cocaine Metab Screen NEGATIVE (NEGATIVE) 03/08/19 21:30 U Marijuana (THC) Screen NEGATIVE (NEGATIVE) 03/08/19 21:30 - Allergies Allergies/Adverse Reactions: Allergies Allergy/AdvReac Type Severity Reaction Status Date / Time No Known Allergies Allergy Verified 03/08/19 21:39 - Blood Blood Available: No - Anesthesia Plan Pre-Op Medication Ordered: None - Acknowledgements Anesthesia Type Planned: Spinal Pt an Appropriate Candidate for the Planned Anesthesia: Yes Alternatives and Risks of Anesthesia Discussed w Pt/Guardian: Yes Pt/Guardian Understands and Agrees with Anesthesia Plan: Yes PreAnesthesia Questionnaire - Past Health History Medical/Surgical History: Denies Medical/Surgical History HEENT History: Reports: None Cardiovascular History: Reports: None Respiratory History: Reports: None Gastrointestinal History: Reports: None Genitourinary History: Reports: None 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: , Other (See Below) Other OB/BYN History: Premature deliveries x 4; Musculoskeletal History: Reports: None Neurological History: Reports: None Psychiatric History: Reports: None Endocrine/Metabolic History: Reports: None Hematologic History: Reports: Anemia Immunologic History: Reports: None Oncologic (Cancer) History: Reports: None Dermatologic History: Reports: None - Infectious Disease History Infectious Disease History: Reports: None Other Infectious Disease History: Chlamydia - Past Surgical History Head Surgeries/Procedures: Reports: None HEENT Surgical History: Reports: None Cardiovascular Surgical History: Reports: None Respiratory Surgical History: Reports: None GI Surgical History: Reports: None Female Surgical History: Reports: None Endocrine Surgical History: Reports: None Neurological Surgical History: Reports: None Musculoskeletal Surgical History: Reports: None Oncologic Surgical History: Reports: None Dermatological Surgical History: Reports: None - HOME MEDS Home Medications: Home Meds Pnv No.122/Iron/Folic Acid [ Multi Tablet] 1 each PO DAILY 03/18/18 [ History] Iron 1 tab PO DAILY 11/18/18 [History] - CURRENT (IN HOUSE) MEDS Current Meds: Current Medications Bisacodyl (Dulcolax) 10 mg RECTAL ONETIME PRN PRN Reason: Constipation Diphenhydramine HCl (Benadryl) 25 mg IVPUSH Q6H PRN PRN Reason: Itching or Nausea Docusate Sodium (Colace) 100 mg PO BID [facility] Emollient Ointment (Lansinoh Hpa) 0 gm TOP ASDIRECTED PRN PRN Reason: Sore Nipples Lactated Ringer's (Ringers, Lactated) 1,000 mls @ 125 mls/hr IV ASDIRECTED [facility] Ibuprofen (Motrin) 800 mg PO Q8H PRN PRN Reason: mild pain or fever Ketorolac Tromethamine (Toradol) 30 mg IVPUSH Q6H [facility] Stop: 03/10/19 01:01 Ondansetron HCl (Zofran) 4 mg IVPUSH Q6H PRN PRN Reason: Nausea/Vomiting Last Admin: 03/08/19 23:47 Dose: 4 mg Ondansetron HCl (Zofran) 4 mg IVPUSH Q4H PRN PRN Reason: Nausea/Vomiting Oxycodone/Acetaminophen (Percocet 325-5 Mg) 1 tab PO Q4H PRN PRN Reason: Pain (moderate 4-6) Oxycodone/Acetaminophen (Percocet 325-5 Mg) 2 tab PO Q4H PRN PRN Reason: Pain (moderate 4-6) Discontinued Medications Azithromycin (Zithromax) 1,000 mg PO ONETIME ONE Stop: 03/08/19 22:56 Last Admin: 03/08/19 23:00 Dose: 1,000 mg Azithromycin (Zithromax) Confirm Administered Dose 1,000 mg .ROUTE .STK-MED ONE Stop: 03/08/19 22:59 Cefazolin Sodium (Ancef) Confirm Administered Dose 2 gm .ROUTE .STK-MED ONE Stop: 03/09/19 00:21 Lactated Ringer's (Ringers, Lactated) 1,000 mls @ 999 mls/hr IV .BOLUS ONE Stop: 03/08/19 23:32 Last Admin: 03/08/19 22:25 Dose: 999 mls/hr Morphine Sulfate (Duramorph Pf) Confirm Administered Dose 10 mg .ROUTE .STK-MED ONE Stop: 03/09/19 00:23 Octyl Cyanoacrylate (Dermabond Advance) Confirm Administered Dose 1 applic .ROUTE .STK-MED ONE Stop: 03/09/19 00:52 Ondansetron HCl (Zofran) Confirm Administered Dose 4 mg .ROUTE .STK-MED ONE Stop: 03/08/19 23:44 Phenylephrine HCl (Phenylephrine In Ns 100 Mcg/Ml) Confirm Administered Dose 1 mg .ROUTE .STK-MED ONE Stop: 03/09/19 01:01 Terbutaline Sulfate (Brethine) 0.25 mg SUBCUT ONETIME ONE Stop: 03/08/19 22:32 Last Admin: 03/08/19 22:38 Dose: 0.25 mg Terbutaline Sulfate (Brethine) Confirm Administered Dose 1 mg .ROUTE .STK-MED ONE Stop: 03/08/19 22:34
--- NOTE | 2019-03-09 01:56 | PCM.POSTAN ---
POST ANESTHESIA ASSESSMENT - MENTAL STATUS Mental Status: Alert - VITAL SIGNS Vital Signs: Last Vital Signs Temp 99.7 C H 03/09/19 01:35 Pulse 81 03/09/19 01:50 Resp 12 03/09/19 01:50 BP 109/56 L 03/09/19 01:50 Pulse Ox - RESPIRATORY Respiratory Status: Respiratory Rate WNL - CARDIOVASCULAR CV Status: Pulse Rate WNL - GASTROINTESTINAL GI Status: No Symptoms - POST OP HYDRATION Hydration Status: Adequate & Stable
[2019-03-09] MEDS: diphenhydrAMINE 50 MG/ML SDV IVPUSH PRN ×2 (03:14→07:04)
--- NOTE | 2019-03-09 03:42 | OR ---
SURGEON: Eduard Valencia MD DATE OF PROCEDURE: PREOPERATIVE DIAGNOSES: Intrauterine at 32 weeks, heart rate category 2, nonreassuring heart rate. POSTOPERATIVE DIAGNOSES: Intrauterine at 32 weeks, heart rate category 2, nonreassuring heart rate. OPERATIONS PERFORMED: Primary low-transverse section. PRIMARY SURGEON: Eduard Valencia MD. INNOVATION ANALYST: Hannah Frey. ANESTHESIA: Spinal, Collins Blas and Dr. Malin. ESTIMATED BLOOD LOSS: 600 mL. COMPLICATIONS: None. FINDINGS: Male fetus. scores and the weight are not available at this time. INDICATION FOR SURGERY: This patient is para 0-6-0-6. All her children delivered prematurely and she had late care. She started her care at 28 weeks. She presented to Labor and Delivery 10 days ago in labor and she transferred to [facility]. However, she was discharged from there because her labor did not progress. However, today she presented in labor, she dilated to 4 cm, 70% to 80%, heart rate is category 2. This was non-reassuring. We were unable to transfer her, so we decided to do a primary low-transverse section and would call the transport team to transport the baby. PROCEDURE IN DETAIL: The patient was brought to the OR and properly identified. After adequate level of spinal anesthesia, the patient was prepped and draped in sterile fashion as usual. Drake catheter was placed in the bladder. Low transverse Pfannenstiel skin incision done. Santosh's fascia and rectus fascia were opened in direction of the incision. The 2 recti muscles . Peritoneal cavity was entered. Bladder flap was raised in the usual manner pushing the bladder away from the lower uterine segment. Low transverse uterine incision was done then the fetus was in a vertex position. It was noted that there were 2 nuchal cord and the fetus was delivered without any problems. The fetus cried immediately. Dr. Andrews, the toy parts former supervisor was in attendance to the delivery and then the fetus was handed to the toy parts former supervisor and resuscitating staff for resuscitation. The placenta delivered spontaneous, complete and intact and repair of the lower uterine segment was done with 2-0 Vicryl continuous interlocking in 2 layers. Reperitonealization was done with 2-0 Vicryl continuous and then the peritoneal cavity evacuated completely from all blood and blood clot and closed with 3-0 Vicryl continuous. The rectus fascia was closed with #1 PDS continuous and the Santosh's fascia with 3-0 Vicryl continuous and skin was closed with Stratafix suture in a subcuticular fashion with Dermabond. Instrument and sponge counts were correct. The patient tolerated the procedure well and went to recovery room in stable general condition. EVARISTO / SARAH /[id number] MTDD
[2019-03-09] MEDS: Nalbuphine 10 MG/1 ML Vial IVPUSH PRN ×3 (04:49→15:41)
[2019-03-09] MEDS: Ketorolac 30 MG/ML SDV IVPUSH SCH ×2 (07:01→12:52)
[2019-03-09] MEDS ORDERED: Docusate Sodium 100 MG Cap PO SCH (09:00)
--- NOTE | 2019-03-09 09:28 | PCM48HPAN ---
Post Anesthesia Note - EVALUATION WITHIN 48HRS OF ANESTHETIC Vital Signs in Normal Range: Yes Patient Participated in Evaluation: Yes Respiratory Function Stable: Yes Airway Patent: Yes Cardiovascular Function Stable: Yes Hydration Status Stable: Yes (Patient reports some pruritis. Managed with Nubain.) Pain Control Satisfactory: Yes Nausea and Vomiting Control Satisfactory: Yes Mental Status Recovered: Yes Vital Signs: Last Vital Signs Temp 36.3 C 03/09/19 07:48 Pulse 66 03/09/19 09:00 Resp 17 03/09/19 09:00 BP 116/78 03/09/19 07:48 Pulse Ox 100 03/09/19 09:00
--- NOTE | 2019-03-09 14:54 | PCM.DCSUM1 ---
Discharge Summary - Hospital Course Free Text/Narrative:: Discharge home today so she can travel to [place] to be with her infant. Follow up 1 week for incision check (if she is in [place] she may ask a doctor there to look at the incision) Follow up in the clinic in 6 weeks for . Diagnosis: Stroke: No Modified Linwood Scale: No Symptoms at All Modified Linwood Scale Score: 0 - Discharge Data Discharge Date: 03/09/19 Discharge Disposition: Home, Self-Care 01 Condition: Good - Patient Summary/Data Operative Procedure(s) Performed: Primary C/section. - Patient Instructions Diet: Usual Diet as Tolerated Activity: As Tolerated, No Strenuous Activities, Rest and Relax Today Driving: Do Not Drive Showering/Bathing: May Shower Notify Provider of: Fever, Increased Pain, Swelling and Redness, Nausea and/or Vomiting - Discharge Plan *PRESCRIPTION DRUG MONITORING PROGRAM REVIEWED*: Not Applicable *COPY OF PRESCRIPTION DRUG MONITORING REPORT IN PATIENT GAYLE: Not Applicable Prescriptions/Med Rec: Acetaminophen/oxyCODONE [Percocet 325-5 MG] 1 - 2 tab PO Q4H PRN #30 tablet PRN Reason: Pain (Moderate 4-6) Ibuprofen [Motrin] 800 mg PO Q8H PRN #90 tablet PRN Reason: mild pain or fever Home Medications: Home Meds Pnv No.122/Iron/Folic Acid [ Multi Tablet] 1 each PO DAILY 03/18/18 [ History] Iron 1 tab PO DAILY 11/18/18 [History] Acetaminophen/oxyCODONE [Percocet 325-5 MG] 1 - 2 tab PO Q4H PRN #30 tablet 07/27 [Rx] Ibuprofen [Motrin] 800 mg PO Q8H PRN #90 tablet 03/09/19 [Rx] Oxygen Therapy Mode: Room Air - Discharge Summary/Plan Comment DC Time >30 min.: Yes - General Info Date of Service: 03/09/19 Admission Dx/Problem (Free Text: Patient Status Order with Admit Dx/Problem 03/08/19 21:40 Patient Status [ADT] Routine Admission Diagnosis/Problem Admission Diagnosis/Problem Functional Status: Reports: Pain Controlled, Tolerating Diet, Ambulating, Urinating - Review of Systems General: Reports: No Symptoms HEENT: Reports: No Symptoms Pulmonary: Reports: No Symptoms Cardiovascular: Reports: No Symptoms Gastrointestinal: Reports: No Symptoms Genitourinary: Reports: No Symptoms Musculoskeletal: Reports: No Symptoms Skin: Reports: No Symptoms Neurological: Reports: No Symptoms Psychiatric: Reports: No Symptoms - Patient Data Vitals - Most Recent: Last Vital Signs Temp 36.7 C 03/09/19 12:00 Pulse 83 03/09/19 14:00 Resp 17 03/09/19 14:00 BP 124/80 03/09/19 12:00 Pulse Ox 98 03/09/19 14:00 Weight - Most Recent: 64.41 kg I&O - Last 24 hours: Intake & Output 03/08/19 03/09/19 03/09/19 22:59 06:59 14:59 Intake Total 3000 Output Total 1375 650 Balance 1625 -650 Lab Results - Last 24 hrs: Laboratory Results - last 24 hr 03/08/19 03/08/19 03/09/19 Range/Units 21:30 21:30 09:03 WBC (4.0-11.0) K/uL RBC (4.30-5.90) M/uL Hgb (12.0-16.0) g/dL Hct (36.0-46.0) % MCV (80.0-98.0) fL MCH (27.0-32.0) pg MCHC (31.0-37.0) g/dL RDW Std Deviation (28.0-62.0) fl RDW Coeff of Alessandra (11.0-15.0) % Plt Count (150-400) K/uL MPV (7.40-12.00) fL Add Manual Diff Neutrophils % (Manual) (48.0-80.0) % Band Neutrophils % % Lymphocytes % (Manual) (16.0-40.0) % Monocytes % (Manual) (0.0-15.0) % Eosinophils % (Manual) (0.0-7.0) % Myelocytes % % Nucleated RBC % /100WBC Absolute Seg Neuts (1.4-5.7) Band Neutrophils # Lymphocytes # (Manual) (0.6-2.4) Monocytes # (Manual) (0.0-0.8) Eosinophils # (Manual) (0.0-0.7) Absolute Myelocytes Nucleated RBCs # K/uL Urine Color YELLOW Urine Appearance HAZY Urine pH 6.5 (5.0-8.0) Ur Specific [place] 1.015 (1.001-1.035) Urine Protein NEGATIVE (NEGATIVE) mg/dL Urine Glucose (UA) NEGATIVE (NEGATIVE) mg/dL Urine Ketones NEGATIVE (NEGATIVE) mg/dL Urine Occult Blood NEGATIVE (NEGATIVE) Urine Nitrite NEGATIVE (NEGATIVE) Urine Bilirubin NEGATIVE (NEGATIVE) Urine Urobilinogen 0.2 (<2.0) EU/dL Ur Leukocyte Esterase SMALL H (NEGATIVE) Urine RBC 0-2 (0-2/HPF) Urine WBC 1-3 (0-5/HPF) Ur Epithelial Cells FEW (NONE-FEW) Urine Bacteria FEW (NEGATIVE) Urine Opiates Screen NEGATIVE (NEGATIVE) Ur Oxycodone Screen NEGATIVE (NEGATIVE) Urine Methadone Screen NEGATIVE (NEGATIVE) Ur Barbiturates Screen NEGATIVE (NEGATIVE) Ur Phencyclidine Scrn NEGATIVE (NEGATIVE) Ur Amphetamine Screen NEGATIVE (NEGATIVE) U Methamphetamines Scrn NEGATIVE (NEGATIVE) U Benzodiazepines Scrn NEGATIVE (NEGATIVE) U Cocaine Metab Screen NEGATIVE (NEGATIVE) U Marijuana (THC) Screen NEGATIVE (NEGATIVE) Blood Type O POSITIVE Antibody Screen NEGATIVE 03/09/19 Range/Units 09:06 WBC 18.25 H (4.0-11.0) K/uL RBC 3.42 L (4.30-5.90) M/uL Hgb 8.7 L (12.0-16.0) g/dL Hct 27.8 L (36.0-46.0) % MCV 81.3 (80.0-98.0) fL MCH 25.4 L (27.0-32.0) pg MCHC 31.3 (31.0-37.0) g/dL RDW Std Deviation 41.8 (28.0-62.0) fl RDW Coeff of Alessandra 14 (11.0-15.0) % Plt Count 225 (150-400) K/uL MPV 9.20 (7.40-12.00) fL Add Manual Diff YES Neutrophils % (Manual) 74 (48.0-80.0) % Band Neutrophils % 2 % Lymphocytes % (Manual) 14 L (16.0-40.0) % Monocytes % (Manual) 6 (0.0-15.0) % Eosinophils % (Manual) 2 (0.0-7.0) % Myelocytes % 2 % Nucleated RBC % 0.0 /100WBC Absolute Seg Neuts 13.5 H (1.4-5.7) Band Neutrophils # 0.4 Lymphocytes # (Manual) 2.6 H (0.6-2.4) Monocytes # (Manual) 1.1 H (0.0-0.8) Eosinophils # (Manual) 0.4 (0.0-0.7) Absolute Myelocytes 0.4 Nucleated RBCs # 0 K/uL Urine Color Urine Appearance Urine pH (5.0-8.0) Ur Specific [place] (1.001-1.035) Urine Protein (NEGATIVE) mg/dL Urine Glucose (UA) (NEGATIVE) mg/dL Urine Ketones (NEGATIVE) mg/dL Urine Occult Blood (NEGATIVE) Urine Nitrite (NEGATIVE) Urine Bilirubin (NEGATIVE) Urine Urobilinogen (<2.0) EU/dL Ur Leukocyte Esterase (NEGATIVE) Urine RBC (0-2/HPF) Urine WBC (0-5/HPF) Ur Epithelial Cells (NONE-FEW) Urine Bacteria (NEGATIVE) Urine Opiates Screen (NEGATIVE) Ur Oxycodone Screen (NEGATIVE) Urine Methadone Screen (NEGATIVE) Ur Barbiturates Screen (NEGATIVE) Ur Phencyclidine Scrn (NEGATIVE) Ur Amphetamine Screen (NEGATIVE) U Methamphetamines Scrn (NEGATIVE) U Benzodiazepines Scrn (NEGATIVE) U Cocaine Metab Screen (NEGATIVE) U Marijuana (THC) Screen (NEGATIVE) Blood Type Antibody Screen Med Orders - Current: Current Medications Bisacodyl (Dulcolax) 10 mg RECTAL ONETIME PRN PRN Reason: Constipation Diphenhydramine HCl (Benadryl) 25 mg IVPUSH Q6H PRN PRN Reason: Itching or Nausea Last Admin: 03/09/19 14:42 Dose: 25 mg Diphenhydramine HCl (Benadryl) 25 mg IVPUSH Q4H PRN PRN Reason: Itching Stop: 03/10/19 01:32 Last Admin: 03/09/19 07:04 Dose: 25 mg Docusate Sodium (Colace) 100 mg PO BID FE Last Admin: 03/09/19 11:05 Dose: 100 mg Emollient Ointment (Lansinoh Hpa) 0 gm TOP ASDIRECTED PRN PRN Reason: Sore Nipples Fentanyl (Sublimaze) 50 mcg IVPUSH Q1H PRN PRN Reason: Pain (severe 7-10) Lactated Ringer's (Ringers, Lactated) 1,000 mls @ 125 mls/hr IV ASDIRECTED FE Ibuprofen (Motrin) 800 mg PO Q8H PRN PRN Reason: mild pain or fever Ketorolac Tromethamine (Toradol) 30 mg IVPUSH Q6H FE Stop: 03/10/19 01:01 Last Admin: 03/09/19 12:52 Dose: 30 mg Nalbuphine HCl (Nubain) 5 mg IVPUSH ASDIRECTED PRN PRN Reason: Itching Last Admin: 03/09/19 11:04 Dose: 5 mg Naloxone HCl (Narcan) 0.1 mg IVPUSH ONETIME PRN PRN Reason: Respiratory Depression Stop: 03/10/19 01:32 Ondansetron HCl (Zofran) 4 mg IVPUSH Q6H PRN PRN Reason: Nausea/Vomiting Last Admin: 03/08/19 23:47 Dose: 4 mg Ondansetron HCl (Zofran) 4 mg IVPUSH Q4H PRN PRN Reason: Nausea/Vomiting Ondansetron HCl (Zofran) 4 mg IVPUSH Q6H PRN PRN Reason: Nausea Oxycodone/Acetaminophen (Percocet 325-5 Mg) 1 tab PO Q4H PRN PRN Reason: Pain (moderate 4-6) Oxycodone/Acetaminophen (Percocet 325-5 Mg) 2 tab PO Q4H PRN PRN Reason: Pain (moderate 4-6) Oxycodone/Acetaminophen (Percocet 325-5 Mg) 2 tab PO Q6H PRN PRN Reason: Pain (moderate 4-6) Discontinued Medications Azithromycin (Zithromax) 1,000 mg PO ONETIME ONE Stop: 03/08/19 22:56 Last Admin: 03/08/19 23:00 Dose: 1,000 mg Azithromycin (Zithromax) Confirm Administered Dose 1,000 mg .ROUTE .STK-MED ONE Stop: 03/08/19 22:59 Cefazolin Sodium (Ancef) Confirm Administered Dose 2 gm .ROUTE .STK-MED ONE Stop: 03/09/19 00:21 Lactated Ringer's (Ringers, Lactated) 1,000 mls @ 999 mls/hr IV .BOLUS ONE Stop: 03/08/19 23:32 Last Admin: 03/08/19 22:25 Dose: 999 mls/hr Morphine Sulfate (Duramorph Pf) Confirm Administered Dose 10 mg .ROUTE .STK-MED ONE Stop: 03/09/19 00:23 Octyl Cyanoacrylate (Dermabond Advance) Confirm Administered Dose 1 applic .ROUTE .STK-MED ONE Stop: 03/09/19 00:52 Ondansetron HCl (Zofran) Confirm Administered Dose 4 mg .ROUTE .STK-MED ONE Stop: 03/08/19 23:44 Phenylephrine HCl (Phenylephrine In Ns 100 Mcg/Ml) Confirm Administered Dose 1 mg .ROUTE .STK-MED ONE Stop: 03/09/19 01:01 Terbutaline Sulfate (Brethine) 0.25 mg SUBCUT ONETIME ONE Stop: 03/08/19 22:32 Last Admin: 03/08/19 22:38 Dose: 0.25 mg Terbutaline Sulfate (Brethine) Confirm Administered Dose 1 mg .ROUTE .STK-MED ONE Stop: 03/08/19 22:34 - Exam General: Reports: Alert, Oriented, Cooperative, No Acute Distress Lungs: Reports: Clear to Auscultation, Normal Respiratory Effort Cardiovascular: Reports: Regular Rate, Regular Rhythm, No Murmurs GI/Abdominal Exam: Soft, Non-Tender (Female) Exam: Deferred, Vaginal Bleeding Rectal (Female) Exam: Deferred Back Exam: Reports: Normal Inspection, Full Range of Motion Extremities: Normal Range of Motion, Non-Tender, No Pedal Edema Skin: Reports: Warm Wound/Incisions: Reports: Healing Well, No Drainage. Denies: Erythema Neurological: Reports: No New Focal Deficit, Normal Gait, Normal Speech, Normal Tone, Strength Equal Bilateral, Sensation Intact Psy/Mental Status: Reports: Alert, Normal Affect, Normal Mood
[2019-03-10] MEDS ORDERED: Ibuprofen 800 MG Tab PO PRN (07:00)
== END 2019-03-09 17:52 | disposition home or self-care (01) | DRG 788 ==
LOC: MW.OBCHECK 21:33 → MW.OB 21:35 → MW.OBCHECK 03-09 00:19 → MW.OB 03-09 04:19
PROVIDERS: ADMIT Obstetrics & Gynecology; ATTEND Obstetrics & Gynecology
PROC: 10D00Z1 Extraction of Products of Conception, Low, Open Approach (ICD-10-PCS; principal; 2019-03-09)
DX: O76 Abnormality in fetal heart rate and rhythm complicating labor and delivery (principal); O99.02 Anemia complicating childbirth; D64.9 Anemia, unspecified; Z3A.32 32 weeks gestation of pregnancy; Z37.0 Single live birth
CPT/HCPCS: 36415; 51702; 59025; 80305-QW; 81001; 85025; 86850; 86900; 86901; 87081; A9270-GY; J0690; J1200; J1885; J2270; J2300; J2370; J2405; J3105; J7120

== ENCOUNTER 2019-04-22 11:41 | Emergency (ER) | payer MEDICAID ==
--- NOTE | 2019-04-22 12:06 | EDM.PDOC ---
ED HPI GENERAL MEDICAL PROBLEM - General Chief Complaint: ENT Problem Stated Complaint: THOAT SORE Time Seen by Provider: 04/22/19 12:00 - History of Present Illness INITIAL COMMENTS - FREE TEXT/NARRATIVE: HISTORY AND PHYSICAL: History of present illness: Patient's 23-year-old black female with no significant past medical history presents with concern of sore throat fever and cough 1 day she denies shortness of breath denies nausea vomiting denies other concern. Review of systems: As per history of present illness and below otherwise all systems reviewed and negative. Past medical history: As per history of present illness and as reviewed below otherwise noncontributory. Surgical history: As per history of present illness and as reviewed below otherwise noncontributory. Social history: No reported history of drug or alcohol abuse. Family history: As per history of present illness and as reviewed below otherwise noncontributory. Physical exam: HEENT: Atraumatic, normocephalic, pupils reactive, negative for conjunctival pallor or scleral icterus, mucous membranes moist, throat injected, neck supple , nontender, trachea midline. Lungs: Clear to auscultation, breath sounds equal bilaterally, chest nontender. Heart: S1S2, regular, negative for clicks, rubs, or JVD. Abdomen: Soft, nondistended, nontender. Negative for masses or hepatosplenomegaly. Negative for costovertebral tenderness. Pelvis: Stable nontender. Genitourinary: Deferred. Rectal: Deferred. Extremities: Atraumatic, negative for cords or calf pain. Neurovascular unremarkable. Neuro: Awake, alert, oriented. Cranial nerves II through XII unremarkable. Cerebellum unremarkable. Motor and sensory unremarkable throughout. Exam nonfocal. Diagnostics: Deferred Therapeutics: None Impression: #1 pharyngitis #2 tracheobronchitis Definitive disposition and diagnosis as appropriate pending reevaluation and review of above. throat Pain Score (Numeric/FACES): 10 - Related Data Allergies Allergy/AdvReac Type Severity Reaction Status Date / Time No Known Allergies Allergy Verified 04/22/19 11:55 Home Meds: Home Meds . [No Known Home Meds] 04/22/19 [History] Past Medical History - Past Health History Medical/Surgical History: Denies Medical/Surgical History HEENT History: Reports: None Cardiovascular History: Reports: None Respiratory History: Reports: None Gastrointestinal History: Reports: None Genitourinary History: Reports: None RUBBER MIXER History: Reports: , Other (See Below) Other RUBBER MIXER History: Premature deliveries x 4; Musculoskeletal History: Reports: None Neurological History: Reports: None Psychiatric History: Reports: None Endocrine/Metabolic History: Reports: None Hematologic History: Reports: Anemia Immunologic History: Reports: None Oncologic (Cancer) History: Reports: None Dermatologic History: Reports: None - Infectious Disease History Infectious Disease History: Reports: None Other Infectious Disease History: Chlamydia - Past Surgical History Head Surgeries/Procedures: Reports: None HEENT Surgical History: Reports: None Cardiovascular Surgical History: Reports: None Respiratory Surgical History: Reports: None Female Surgical History: Reports: Section Endocrine Surgical History: Reports: None Neurological Surgical History: Reports: None Musculoskeletal Surgical History: Reports: None Oncologic Surgical History: Reports: None Dermatological Surgical History: Reports: None Social & Family History - Family History Family Medical History: Noncontributory Cardiac: Reports: Hypertension OBGYN: Reports: - Tobacco Use Smoking Status *Q: Never Smoker - Caffeine Use Caffeine Use: Reports: None - Recreational Drug Use Recreational Drug Use: No ED ROS GENERAL - Review of Systems Review Of Systems: ROS reveals no pertinent complaints other than HPI. ED EXAM, GENERAL - Physical Exam Exam: See Below (See dictation) Course - Vital Signs Last Recorded V/S: Last Vital Signs Temp 36.7 C 04/22/19 11:52 Pulse 65 04/22/19 11:52 Resp 18 04/22/19 11:52 BP 127/82 04/22/19 11:52 Pulse Ox 96 04/22/19 11:52 Departure - Departure Time of Disposition: 12:05 Disposition: Home, Self-Care 01 Condition: Good Clinical Impression: Pharyngitis, Tracheobronchitis - Discharge Information Referrals: Justine Ruiz [employer]ODUCTION TEAM LEADER [Primary Care Provider] - Additional Instructions: The following information is given to patients seen in the emergency department who are being discharged to home. This information is to outline your options for follow-up care. We provide all patients seen in our emergency department with a follow-up referral. The need for follow-up, as well as the timing and circumstances, are variable depending upon the specifics of your emergency department visit. If you don't have a primary care physician on staff, we will provide you with a referral. We always advise you to contact your personal physician following an emergency department visit to inform them of the circumstance of the visit and for follow-up with them and/or the need for any referrals to a consulting specialist. The emergency department will also refer you to a specialist when appropriate. This referral assures that you have the opportunity for followup care with a specialist. All of these measure are taken in an effort to provide you with optimal care, which includes your followup. Under all circumstances we always encourage you to contact your private physician who remains a resource for coordinating your care. When calling for followup care, please make the office aware that this follow-up is from your recent emergency room visit. If for any reason you are refused follow-up, please contact the [facility] emergency department at and asked to speak to the emergency department charge nurse. Augmentin/albuterol as prescribed follow-up primary medical doctor ibuprofen/ Tylenol as directed and return as needed as discussed
== END 2019-04-22 12:17 | disposition home or self-care (01) ==
LOC: MW.ED 11:41
DX: J02.9 Acute pharyngitis, unspecified (principal); J40 Bronchitis, not specified as acute or chronic
CPT/HCPCS: 99282

== ENCOUNTER 2019-11-12 20:01 | Emergency (ER) | payer MEDICAID ==
--- NOTE | 2019-11-12 20:14 | EDM.PDOC ---
ED HPI GENERAL MEDICAL PROBLEM - General Chief Complaint: Genitourinary Problem Stated Complaint: VOMITING Time Seen by Provider: 11/12/19 20:02 Source of Information: Reports: Patient History Limitations: Reports: No Limitations - History of Present Illness INITIAL COMMENTS - FREE TEXT/NARRATIVE: HISTORY AND PHYSICAL: History of present illness: Patient is a 24-year-old female who presents to the emergency room with complaints of nausea x2 days. She has previously had a urinary tract infection in which her only symptom at that time was nausea. She is concerned she may have a UTI now. She states she is sexually active and could be but states her last menstrual period was approximately 1 month ago. Patient denies any fever, chills, headache, change in vision, syncope or near syncope. Denies any chest pain, back pain, shortness of breath or cough. Denies any abdominal pain, vomiting, diarrhea, constipation or dysuria. Has not noted any blood in urine or stool. Patient has been eating and drinking appropriately. Review of systems: As per history of present illness and below otherwise all systems reviewed and negative. Past medical history: As per history of present illness and as reviewed below otherwise noncontributory. Surgical history: As per history of present illness and as reviewed below otherwise noncontributory. Social history: See social history for further information Family history: As per history of present illness and as reviewed below otherwise noncontributory. Physical exam: General: Well-developed and well-nourished 24-year-old -[place]ian female. Alert and oriented. Nontoxic-appearing and in no acute distress. HEENT: Atraumatic, normocephalic, pupils equal and reactive bilaterally, negative for conjunctival pallor or scleral icterus, mucous membranes moist, TMs normal bilaterally, throat clear, neck supple, nontender, trachea midline. No drooling or trismus noted. No meningeal signs. No hot potato voice noted. Lungs: Clear to auscultation, breath sounds equal bilaterally, chest nontender. Heart: S1S2, regular rate and rhythm without overt murmur Abdomen: Soft, nondistended, nontender. Negative for masses or hepatosplenomegaly. Negative for costovertebral tenderness. Skin: Intact, warm, dry. No lesions or rashes noted. Extremities: Atraumatic, moves all extremities per self without difficulty or deficits, negative for cords or calf pain. Neurovascular unremarkable. Neuro: Awake, alert, oriented. Cranial nerves II through XII unremarkable. Cerebellum unremarkable. Motor and sensory unremarkable throughout. Exam nonfocal. Notes: Besides the nausea symptom, she has no symptoms or concerns. She does have few WBC and bacteria; will treat with short course of Macrobid and Zofran. Encouraged to f/u with PCP. Supportive care measures were reviewed and discussed. Voices understanding and is agreeable to plan of care. Denies any further questions or concerns at this time. Diagnostics: UA, hCG U Therapeutics: Zofran Prescription: Zofran, Macrobid Impression: Nausea Plan: 1.Zofran as needed for nausea. Please use Tylenol and/or Ibuprofen as needed for pain and fever management. 2. Get plenty of Rest. Encourage fluids to prevent dehydration. 3. Please follow up with your primary care provider. Return to the ED as needed as discussed. Definitive disposition and diagnosis as appropriate pending reevaluation and review of above. - Related Data Allergies Allergy/AdvReac Type Severity Reaction Status Date / Time No Known Allergies Allergy Verified 11/12/19 20:20 Home Meds: Home Meds Ondansetron [Zofran ODT] 4 mg PO Q6H PRN #8 tab.dis 11/12/19 [Rx] nitrofurantoin macrocrystaL [Nitrofurantoin] 100 mg PO BID 5 Days #10 capsule [Rx] Past Medical History - Past Health History Medical/Surgical History: Denies Medical/Surgical History HEENT History: Reports: None Cardiovascular History: Reports: None Respiratory History: Reports: None Gastrointestinal History: Reports: None Genitourinary History: Reports: None HEALTH UNIT SUPERVISOR History: Reports: , Other (See Below) Other HEALTH UNIT SUPERVISOR History: Premature deliveries x 4; Musculoskeletal History: Reports: None Neurological History: Reports: None Psychiatric History: Reports: None Endocrine/Metabolic History: Reports: None Hematologic History: Reports: Anemia Immunologic History: Reports: None Oncologic (Cancer) History: Reports: None Dermatologic History: Reports: None - Infectious Disease History Infectious Disease History: Reports: None Other Infectious Disease History: Chlamydia - Past Surgical History Head Surgeries/Procedures: Reports: None HEENT Surgical History: Reports: None Cardiovascular Surgical History: Reports: None Respiratory Surgical History: Reports: None Female Surgical History: Reports: Section Endocrine Surgical History: Reports: None Neurological Surgical History: Reports: None Musculoskeletal Surgical History: Reports: None Oncologic Surgical History: Reports: None Dermatological Surgical History: Reports: None Social & Family History - Family History Family Medical History: Noncontributory Cardiac: Reports: Hypertension OBGYN: Reports: - Caffeine Use Caffeine Use: Reports: None ED ROS GENERAL - Review of Systems Review Of Systems: Comprehensive ROS is negative, except as noted in HPI. ED EXAM, RENAL/ - Physical Exam Exam: See Below (See dictation) Course - Vital Signs Last Recorded V/S: Last Vital Signs Temp 96.5 F L 11/12/19 20:17 Pulse 71 11/12/19 20:17 Resp 16 11/12/19 20:17 BP 132/76 11/12/19 20:17 Pulse Ox 95 11/12/19 20:17 - Orders/Labs/Meds Labs: Laboratory Tests 11/12/19 11/12/19 Range/Units 20:10 20:10 Urine Color YELLOW Urine Appearance SLT CLOUDY Urine pH 6.0 (5.0-8.0) Ur Specific Moro >= 1.030 (1.001-1.035) Urine Protein NEGATIVE (NEGATIVE) mg/dL Urine Glucose (UA) NEGATIVE (NEGATIVE) mg/dL Urine Ketones NEGATIVE (NEGATIVE) mg/dL Urine Occult Blood TRACE-INTACT H (NEGATIVE) Urine Nitrite NEGATIVE (NEGATIVE) Urine Bilirubin NEGATIVE (NEGATIVE) Urine Urobilinogen 0.2 (<2.0) EU/dL Ur Leukocyte Esterase NEGATIVE (NEGATIVE) Urine RBC 0-3 (0-2/HPF) Urine WBC 1-3 (0-5/HPF) Ur Epithelial Cells MODERATE (NONE-FEW) Urine Bacteria FEW (NEGATIVE) Urine HCG, Qual NEGATIVE (NEGATIVE) Meds: Medications Discontinued Medications Generic Name Dose Route Start Last Admin Trade Name Freq PRN Reason Stop Dose Admin Ondansetron HCl 4 mg 11/12/19 20:15 11/12/19 20:24 Zofran Odt PO 11/12/19 20:16 4 mg ONETIME ONE Administration Departure - Departure Time of Disposition: 20:35 Disposition: Home, Self-Care 01 Clinical Impression: Nausea - Discharge Information Prescriptions: nitrofurantoin macrocrystaL [Nitrofurantoin] 100 mg PO BID 5 Days #10 capsule Ondansetron [Zofran ODT] 4 mg PO Q6H PRN #8 tab.dis PRN Reason: Nausea Instructions: Nausea and Vomiting, Adult, [id number] Referrals: Justine Ruiz NP [Primary Care Provider] - Forms: ED Department Discharge Additional Instructions: The following information is given to patients seen in the emergency department who are being discharged to home. This information is to outline your options for follow-up care. We provide all patients seen in our emergency department with a follow-up referral. The need for follow-up, as well as the timing and circumstances, are variable depending upon the specifics of your emergency department visit. If you don't have a primary care physician on staff, we will provide you with a referral. We always advise you to contact your personal physician following an emergency department visit to inform them of the circumstance of the visit and for follow-up with them and/or the need for any referrals to a consulting specialist. The emergency department will also refer you to a specialist when appropriate. This referral assures that you have the opportunity for follow-up care with a specialist. All of these measure are taken in an effort to provide you with optimal care, which includes your follow-up. Under all circumstances we always encourage you to contact your private physician who remains a resource for coordinating your care. When calling for follow-up care, please make the office aware that this follow-up is from your recent emergency room visit. If for any reason you are refused follow-up, please contact the [facility] Emergency Department at and asked to speak to the emergency department charge nurse. [facility] [address] [place] [id number] [address] 1. Zofran as needed for nausea. Please use Tylenol and/or Ibuprofen as needed for pain and fever management. 2. Get plenty of Rest. Encourage fluids to prevent dehydration. 3. Please follow up with your primary care provider. Return to the ED as needed as discussed. Sepsis Event Note - Focused Exam Vital Signs: Vital Signs Temp Pulse Resp BP Pulse Ox 11/12/19 20:17 96.5 F L 71 16 132/76 95 Date Exam was Performed: 11/12/19 Time Exam was Performed: 20:34
[2019-11-12] MEDS ORDERED: Ondansetron 4 MG Tab.DIS PO ONE (20:15)
== END 2019-11-12 20:41 | disposition home or self-care (01) ==
LOC: MW.ED 20:01
DX: R11.0 Nausea (principal)
CPT/HCPCS: 81001; 81025; 99283; A9270

== ENCOUNTER 2020-02-28 16:04 | Emergency (ER) | payer MEDICAID ==
[2020-02-28] MEDS ORDERED: Acetaminophen 325 MG Tab PO ONE (16:43)
--- NOTE | 2020-02-28 16:43 | EDM.PDOC ---
ED HPI GENERAL MEDICAL PROBLEM - General Chief Complaint: Back Pain or Injury Stated Complaint: LOWER BACK PAIN Time Seen by Provider: 02/28/20 16:06 Source of Information: Reports: Patient History Limitations: Reports: No Limitations - History of Present Illness INITIAL COMMENTS - FREE TEXT/NARRATIVE: HISTORY AND PHYSICAL: History of present illness: Patient is a 24-year-old female who presents to the emergency room with complaints of left lower abdominal and back pain over the past few days. She has mild nausea associated with it. She believes she is approximately 4-6 weeks . LMP was irregular and "early January". Denies any vaginal bleeding or discharge. Patient denies any fever, chills, headache, change in vision, syncope or near syncope. Denies any chest pain, back pain, shortness of breath or cough. Denies any vomiting, diarrhea, constipation or dysuria. Has not noted any blood in urine or stool. Patient has been eating and drinking appropriately. OBGYN: Phuong Rudolph at [facility] Review of systems: As per history of present illness and below otherwise all systems reviewed and negative. Past medical history: As per history of present illness and as reviewed below otherwise noncontributory. Surgical history: As per history of present illness and as reviewed below otherwise noncontributory. Social history: See social history for further information Family history: As per history of present illness and as reviewed below otherwise noncontributory. Physical exam: General: Well developed and well nourished 24-year-old -[place]aur[place] female. Alert and orientated x 3. Nontoxic in appearance and in no acute distress. Vital signs are stable and have been reviewed by me. Nursing notes were reviewed. Vital signs are stable and have been reviewed by me. HEENT: Atraumatic, normocephalic, pupils equal and reactive bilaterally, negative for conjunctival pallor or scleral icterus, mucous membranes moist, trachea midline. No drooling or trismus noted. No meningeal signs. No hot potato voice noted. Lungs: Clear to auscultation, breath sounds equal bilaterally, chest nontender. Normal work of breathing, no accessory muscles used. Heart: S1S2, regular rate and rhythm without overt murmur Abdomen: Soft, nondistended, mild left lower abdominal pain. Negative for masses or hepatosplenomegaly. Negative for costovertebral tenderness. Skin: Intact, warm, dry. No lesions or rashes noted. Hematologic: No petechiae or purpra. Mucosa appropriate color and normal nail bed color and refill. Extremities: Atraumatic, moves all extremities per self without difficulty or deficits, negative for cords or calf pain. Neurovascular unremarkable. Neuro: Awake, alert, oriented. Cranial nerves II through XII unremarkable. Cerebellum unremarkable. Motor and sensory unremarkable throughout. Exam nonfocal. Notes: Sound shows a small irregular fluid-filled structure in the superior fundus and is probably a pseudo-gestational sac, radiologist is not convinced a true gestational sac. Unable to identify any intrauterine gestation. Probable resolving corpus luteum cyst on the right ovary. Patient's quantitative hCG is 173.0. I did talk to Dr. Valencia OBGYN inspector heating and refrigeration, and we discussed all her diagnostic results. He would like the patient to have a repeat quantitative hCG on Sunday and follow-up with Phuong Martell. This information was shared with the patient. She is comfortable with outpatient lab and already has an appointment on Sunday to see her SCREW MACHINE TOOL SETTER. We discussed signs and symptoms that would prompt them to return to the Emergency Department. Medication, follow up and supportive care measures were reviewed and discussed. Voices understanding and is agreeable to plan of care. Denies any further questions or concerns at this time. Diagnostics: CBC, UA, urine , quantitative hCG, OB ultrasound Therapeutics: Tylenol Prescription: Outpatient HCG quant Impression: Abdominal pain in Plan: 1. Please start and/or continue to take your vitamin with folic acid once daily. 2. Pelvic rest until cleared by your OBGYN (no tampons, sex, etc...) 3. Tylenol as needed for pain management. You'll need to repeat your quantitative HCGU on Sunday. 4. Follow up with your SCREW MACHINE TOOL SETTER, call Sunday to schedule your appointment. Return to the ED as needed and as discussed. Definitive disposition and diagnosis as appropriate pending reevaluation and review of above. Lower back andf lower abdomen Pain Score (Numeric/FACES): 7 - Related Data Allergies Allergy/AdvReac Type Severity Reaction Status Date / Time No Known Allergies Allergy Verified 11/12/19 20:20 Home Meds: Home Meds Ondansetron [Zofran ODT] 4 mg PO Q6H PRN #8 tab.dis 11/12/19 [Rx] nitrofurantoin macrocrystaL [Nitrofurantoin] 100 mg PO BID 5 Days #10 capsule 11/12/19 [Rx] Past Medical History - Past Health History Medical/Surgical History: Denies Medical/Surgical History HEENT History: Reports: None Cardiovascular History: Reports: None Respiratory History: Reports: None Gastrointestinal History: Reports: None Genitourinary History: Reports: None, Prostate Disorder SCREW MACHINE TOOL SETTER History: Reports: Ectopic , , Other (See Below) Other SCREW MACHINE TOOL SETTER History: Premature deliveries x 4; Musculoskeletal History: Reports: None Neurological History: Reports: None, Concussion Psychiatric History: Reports: None Endocrine/Metabolic History: Reports: None Hematologic History: Reports: Anemia Other Hematologic History: iron transfusion Immunologic History: Reports: None Oncologic (Cancer) History: Reports: None Dermatologic History: Reports: None - Infectious Disease History Infectious Disease History: Reports: None Other Infectious Disease History: Chlamydia - Past Surgical History Head Surgeries/Procedures: Reports: None HEENT Surgical History: Reports: None Cardiovascular Surgical History: Reports: None Respiratory Surgical History: Reports: None Female Surgical History: Reports: Section Endocrine Surgical History: Reports: None Neurological Surgical History: Reports: None Musculoskeletal Surgical History: Reports: None Oncologic Surgical History: Reports: None Dermatological Surgical History: Reports: None Social & Family History - Family History Family Medical History: Noncontributory Cardiac: Reports: Hypertension OBGYN: Reports: - Caffeine Use Caffeine Use: Reports: Coffee, Soda - Recreational Drug Use Recreational Drug Use: No ED ROS GENERAL - Review of Systems Review Of Systems: Comprehensive ROS is negative, except as noted in HPI. ED EXAM,LOWER BACK PAIN/INJURY - Physical Exam Exam: See Below (See dictation) Course - Vital Signs Last Recorded V/S: Last Vital Signs Temp 98.1 F 02/28/20 16:12 Pulse 81 02/28/20 16:12 Resp 20 02/28/20 16:12 BP 126/76 02/28/20 16:12 Pulse Ox 100 02/28/20 16:12 - Orders/Labs/Meds Labs: Laboratory Tests 02/28/20 02/28/20 02/28/20 Range/Units 16:11 16:11 17:18 WBC 8.30 (4.0-11.0) K/uL RBC 4.12 L (4.30-5.90) M/uL Hgb 11.0 L (12.0-16.0) g/dL Hct 34.1 L (36.0-46.0) % MCV 82.8 (80.0-98.0) fL MCH 26.7 L (27.0-32.0) pg MCHC 32.3 (31.0-37.0) g/dL RDW Std Deviation 41.2 (28.0-62.0) fl RDW Coeff of Alessandra 14 (11.0-15.0) % Plt Count 302 (150-400) K/uL MPV 8.80 (7.40-12.00) fL Neut % (Auto) 59.6 (48.0-80.0) % Lymph % (Auto) 25.9 (16.0-40.0) % Wilkes % (Auto) 7.1 (0.0-15.0) % Eos % (Auto) 7.0 (0.0-7.0) % Baso % (Auto) 0.4 (0.0-1.5) % Neut # (Auto) 5.0 (1.4-5.7) K/uL Lymph # (Auto) 2.2 (0.6-2.4) K/uL Wilkes # (Auto) 0.6 (0.0-0.8) K/uL Eos # (Auto) 0.6 (0.0-0.7) K/uL Baso # (Auto) 0.0 (0.0-0.1) K/uL Nucleated RBC % 0.0 /100WBC Nucleated RBCs # 0 K/uL Sodium (136-145) mmol/L Potassium (3.5-5.1) mmol/L Chloride (98-107) mmol/L Carbon Dioxide (21.0-32.0) mmol/L BUN (7.0-18.0) mg/dL Creatinine (0.6-1.0) mg/dL Est Cr Clr Drug Dosing mL/min Estimated GFR (MDRD) ml/min Glucose (74-106) mg/dL Calcium (8.5-10.1) mg/dL Total Bilirubin (0.2-1.0) mg/dL AST (15-37) IU/L ALT (14-63) IU/L Alkaline Phosphatase (46-116) U/L Total Protein (6.4-8.2) g/dL Albumin (3.4-5.0) g/dL Globulin (2.6-4.0) g/dL Albumin/Globulin Ratio (0.9-1.6) HCG, Quant mIU/mL Urine Color YELLOW Urine Appearance SLT CLOUDY Urine pH 6.0 (5.0-8.0) Ur Specific Beul[place] >= 1.030 (1.001-1.035) Urine Protein NEGATIVE (NEGATIVE) mg/dL Urine Glucose (UA) NEGATIVE (NEGATIVE) mg/dL Urine Ketones NEGATIVE (NEGATIVE) mg/dL Urine Occult Blood NEGATIVE (NEGATIVE) Urine Nitrite NEGATIVE (NEGATIVE) Urine Bilirubin NEGATIVE (NEGATIVE) Urine Urobilinogen 0.2 (<2.0) EU/dL Ur Leukocyte Esterase NEGATIVE (NEGATIVE) Urine HCG, Qual POSITIVE (NEGATIVE) Blood Type 02/28/20 02/28/20 Range/Units 17:18 17:18 WBC (4.0-11.0) K/uL RBC (4.30-5.90) M/uL Hgb (12.0-16.0) g/dL Hct (36.0-46.0) % MCV (80.0-98.0) fL MCH (27.0-32.0) pg MCHC (31.0-37.0) g/dL RDW Std Deviation (28.0-62.0) fl RDW Coeff of Alessandra (11.0-15.0) % Plt Count (150-400) K/uL MPV (7.40-12.00) fL Neut % (Auto) (48.0-80.0) % Lymph % (Auto) (16.0-40.0) % Wilkes % (Auto) (0.0-15.0) % Eos % (Auto) (0.0-7.0) % Baso % (Auto) (0.0-1.5) % Neut # (Auto) (1.4-5.7) K/uL Lymph # (Auto) (0.6-2.4) K/uL Wilkes # (Auto) (0.0-0.8) K/uL Eos # (Auto) (0.0-0.7) K/uL Baso # (Auto) (0.0-0.1) K/uL Nucleated RBC % /100WBC Nucleated RBCs # K/uL Sodium 137 (136-145) mmol/L Potassium 3.9 (3.5-5.1) mmol/L Chloride 103 (98-107) mmol/L Carbon Dioxide 25.0 (21.0-32.0) mmol/L BUN 10 (7.0-18.0) mg/dL Creatinine 1.2 H (0.6-1.0) mg/dL Est Cr Clr Drug Dosing 59.28 mL/min Estimated GFR (MDRD) > 60.0 ml/min Glucose 81 (74-106) mg/dL Calcium 9.4 (8.5-10.1) mg/dL Total Bilirubin 0.2 (0.2-1.0) mg/dL AST 36 (15-37) IU/L ALT 39 (14-63) IU/L Alkaline Phosphatase 113 (46-116) U/L Total Protein 7.5 (6.4-8.2) g/dL Albumin 4.1 (3.4-5.0) g/dL Globulin 3.4 (2.6-4.0) g/dL Albumin/Globulin Ratio 1.2 (0.9-1.6) HCG, Quant 173.0 mIU/mL Urine Color Urine Appearance Urine pH (5.0-8.0) Ur Specific Beulah (1.001-1.035) Urine Protein (NEGATIVE) mg/dL Urine Glucose (UA) (NEGATIVE) mg/dL Urine Ketones (NEGATIVE) mg/dL Urine Occult Blood (NEGATIVE) Urine Nitrite (NEGATIVE) Urine Bilirubin (NEGATIVE) Urine Urobilinogen (<2.0) EU/dL Ur Leukocyte Esterase (NEGATIVE) Urine HCG, Qual (NEGATIVE) Blood Type O POSITIVE Meds: Medications Discontinued Medications Generic Name Dose Route Start Last Admin Trade Name Freq PRN Reason Stop Dose Admin Acetaminophen 650 mg 02/28/20 16:43 02/28/20 17:17 Tylenol PO 02/28/20 16:44 650 mg NOW ONE Administration Ondansetron HCl 4 mg 02/28/20 17:13 02/28/20 17:18 Zofran Odt PO 02/28/20 17:14 4 mg ONETIME ONE Administration Departure - Departure Time of Disposition: 18:02 Disposition: Home, Self-Care 01 Clinical Impression: Abdominal pain in Qualifiers: Trimester: first trimester Qualified Code(s): O26.891 - Other specified related conditions, first trimester - Discharge Information Instructions: Abdominal Pain During Referrals: Alexandria Negrete DO [Primary Care Provider] - Forms: ED Department Discharge Additional Instructions: The following information is given to patients seen in the emergency department who are being discharged to home. This information is to outline your options for follow-up care. We provide all patients seen in our emergency department with a follow-up referral. The need for follow-up, as well as the timing and circumstances, are variable depending upon the specifics of your emergency department visit. If you don't have a primary care physician on staff, we will provide you with a referral. We always advise you to contact your personal physician following an emergency department visit to inform them of the circumstance of the visit and for follow-up with them and/or the need for any referrals to a consulting specialist. The emergency department will also refer you to a specialist when appropriate. This referral assures that you have the opportunity for follow-up care with a specialist. All of these measure are taken in an effort to provide you with optimal care, which includes your follow-up. Under all circumstances we always encourage you to contact your private physician who remains a resource for coordinating your care. When calling for follow-up care, please make the office aware that this follow-up is from your recent emergency room visit. If for any reason you are refused follow-up, please contact the [facility] Emergency Department at and asked to speak to the emergency department charge nurse. [facility] [address] [place] [id number] [address] Thank you for choosing the [facility] emergency department in [place] for your medical needs today. It was a pleasure caring for you. Today you were seen in the emergency department for abdominal pain in . 1. Please start and/or continue to take your vitamin with folic acid once daily. 2. Pelvic rest until cleared by your OBGYN (no tampons, sex, etc...) 3. Tylenol as needed for pain management. You'll need to repeat your quantitative HCGU on Sunday. 4. Follow up with your SCREW MACHINE TOOL SETTER, call Sunday to schedule your appointment. Return to the ED as needed and as discussed. Sepsis Event Note (ED) - Evaluation Sepsis Screening Result: No Definite Risk - Focused Exam Vital Signs: Vital Signs Temp Pulse Resp BP Pulse Ox 02/28/20 16:12 98.1 F 81 20 126/76 100
[2020-02-28] MEDS ORDERED: Ondansetron 4 MG Tab.DIS PO ONE (17:13)
--- NOTE | 2020-02-28 17:39 | US ---
INDICATION: Positive test with left lower quadrant pain now. Patient unsure of dates. COMPARISON: None available. FINDINGS: Transvaginal ultrasound examination of the female pelvis was performed. There is a small, irregularly-shaped cystic region within the superior uterine fundus, but it does not have a distinct double decidual sac sign. There is no sign of parts, with no sign of a yolk sac or pole. This is probably a pseudo gestational sac. The mean sac diameter is 0.8 centimeters which would give an estimated age of 5 weeks 3 days. The uterus is anteverted with no evidence of mass. The endometrial lining is moderately thickened at 12 millimeters, consistent with . The ovaries are normal in size, the right measuring 3.1 x 2.8 x 2.3 cm and the left measuring 2.9 x 2.4 x 2.6 cm. There is a solid-appearing rounded area of increased color Doppler flow in the right ovary measuring 1.6 centimeters in diameter, consistent with a resolving corpus luteum cyst of . This does not have the appearance of a gestational sac. There is normal color and pulse doppler flow in both ovaries. There is no sign of free fluid in the pelvis. I discussed the findings with HECTOR Lennon at 1735 hours on 02/28/2020. IMPRESSION: Small, irregular fluid-filled structure in the superior fundus is probably a pseudo gestational sac, not convincing for a true gestational sac. Unable to identify an intrauterine gestation. Probable resolving corpus luteum cyst of in the right ovary. Differential diagnosis includes ectopic gestation, completed spontaneous , or early intrauterine gestation. Recommend correlation with serial quantitative beta HCGs. Follow-up ultrasound may be of benefit. Dictated by Jerardo Husain MD @ Feb 28 2020 5:25PM Signed by Dr. Jerardo Husain @ Feb 28 2020 5:37PM
[2020-02-28 17:49] LABS: BLOOD UREA NITROGEN,BUN 10 mg/dL (7.0-18.0); CHLORIDE,CL 103 mmol/L (98-107); GLUCOSE RANDOM 81 mg/dL (74-106); POTASSIUM,K 3.9 mmol/L (3.5-5.1); SODIUM,NA 137 mmol/L (136-145)
== END 2020-02-28 18:28 | disposition home or self-care (01) ==
LOC: MW.ED 16:04
DX: O26.891 Other specified pregnancy related conditions, first trimester (principal); R10.30 Lower abdominal pain, unspecified; Z3A.01 Less than 8 weeks gestation of pregnancy
CPT/HCPCS: 36415; 76801; 80053; 81003; 81025; 84702; 85025; 86900; 86901; 99284; A9270; 99282

== ENCOUNTER 2020-03-01 21:07 | Emergency (ER) | payer MEDICAID ==
[2020-03-01] MEDS ORDERED: Sodium Chloride 0.9% 10 ML Syringe FLUSH PRN (22:05)
[2020-03-01] MEDS ORDERED: Sodium Chloride 0.9% 2.5 ML Syringe FLUSH PRN (22:05)
[2020-03-01] MEDS ORDERED: Acetaminophen 325 MG Tab PO ONE (22:17)
--- NOTE | 2020-03-01 22:17 | EDM.PDOC ---
ED HPI GENERAL MEDICAL PROBLEM - General Chief Complaint: HANDKERCHIEF CUTTER Problem Stated Complaint: ABDOMINAL PAIN Time Seen by Provider: 03/01/20 22:03 Source of Information: Reports: Patient - History of Present Illness INITIAL COMMENTS - FREE TEXT/NARRATIVE: History of present illness: 24-year old female presenting with lower abdominal cramping, ongoing for the last 2 to 3 days. She is about 5 weeks by dates. He is not certain of her exact LMP as she had several episodes of irregular bleeding last month. January 13 she had spotting that was not heavy enough to require any kind of a pad just a panty liner. That stopped and then January 24 developed spotting again. Has not had any bleeding since then. Apparently started to have some lower abdominal cramping for the last few days which was mild up until today when it worsened and she is now very uncomfortable, reports it is a cramping sensation and 10 out of 10 level pain. No nausea or vomiting associated. She has not had any vaginal bleeding. She does report some history of kidney infections and she is worried she might have an infection. She was seen here 2 days ago and had an ultrasound performed which showed an irregular sac in the uterus but could not confirm IUP. At that time her HCG quant was less than 200. Today she was seen in the clinic and had the hCG redrawn and it was in the 400s. However the pain has continued so she decided to get checked here. G8, P7. Review of systems: As per history of present illness and below otherwise all systems reviewed and negative. Past medical history: As per history of present illness and as reviewed below otherwise noncontributory. Surgical history: As per history of present illness and as reviewed below otherwise noncontributory. Social history: No reported history of drug or alcohol abuse. No tobacco Family history: As per history of present illness and as reviewed below otherwise noncontributory. Physical exam: GEN: no acute distress, well appearing HEENT: Atraumatic, normocephalic, mucous membranes moist, Neck: supple. Lungs: No respiratory distress. Heart: RRR Abdomen: Soft, nondistended, mild suprapubic and bilateral lower quadrant tenderness. Back: nontender Extremities: Atraumatic. Neurovascularly intact. Neuro: Awake, alert, oriented. Neuro Exam nonfocal. Skin: warm, dry, no lesions Diagnostics: Transvaginal ultrasound, hCG quant, Rh, labs Therapeutics: Tylenol, IV fluids MDM: Impression: [] Plan: [] Definitive disposition and diagnosis as appropriate pending reevaluation and review of above. Abdomen Pain Score (Numeric/FACES): 10 - Related Data Allergies Allergy/AdvReac Type Severity Reaction Status Date / Time No Known Allergies Allergy Verified 03/01/20 21:28 Home Meds: Home Meds . [No Known Home Meds] 03/01/20 [History] Past Medical History - Past Health History Medical/Surgical History: Denies Medical/Surgical History HEENT History: Reports: None Cardiovascular History: Reports: None Respiratory History: Reports: None Gastrointestinal History: Reports: None Genitourinary History: Reports: None, Prostate Disorder HANDKERCHIEF CUTTER History: Reports: Ectopic , , Other (See Below) Other HANDKERCHIEF CUTTER History: Premature deliveries x 4; Musculoskeletal History: Reports: None Neurological History: Reports: None, Concussion Psychiatric History: Reports: None Endocrine/Metabolic History: Reports: None Insulin Pump [employer] Marketing Analyst: None Hematologic History: Reports: Anemia Other Hematologic History: iron transfusion Immunologic History: Reports: None Oncologic (Cancer) History: Reports: None Dermatologic History: Reports: None - Infectious Disease History Infectious Disease History: Reports: None Other Infectious Disease History: Chlamydia - Past Surgical History Head Surgeries/Procedures: Reports: None HEENT Surgical History: Reports: None Cardiovascular Surgical History: Reports: None Respiratory Surgical History: Reports: None Female Surgical History: Reports: Section Endocrine Surgical History: Reports: None Neurological Surgical History: Reports: None Musculoskeletal Surgical History: Reports: None Oncologic Surgical History: Reports: None Dermatological Surgical History: Reports: None Social & Family History - Family History Family Medical History: Noncontributory Cardiac: Reports: Hypertension OBGYN: Reports: - Tobacco Use Smoking Status *Q: Never Smoker - Caffeine Use Caffeine Use: Reports: None - Recreational Drug Use Recreational Drug Use: No ED ROS GENERAL - Review of Systems Review Of Systems: See Below (See HPI) ED EXAM - Physical Exam Exam: See Below (See HPI) Course - Vital Signs Text/Narrative:: Abdominal pain in early . No vaginal bleeding. No fevers. Differential diagnosis includes ectopic, developing IUP, threatened miscarriage, UTI, pyelonephritis. We will check labs, UA, give IV fluids, transvaginal ultrasound and hCG quant level. HCG quant level is still low, has actually dropped from labs done yesterday. Ultrasound again shows no clear intrauterine gestational sac and the sac or pseudo-sac that was seen previously in the uterus looks less defined, per discussion with the radiologist. Concern for potential ectopic. I discussed this directly with Hannah, the ekg manager and Dr. Valencia, HANDKERCHIEF CUTTER on- call, who recommend outpatient follow-up in the next 1 to 2 days and 48-hour hCG quant level. On reassessment the patient is feeling much better. She reports her pain is significantly improved/resolved now and she feels well enough to go home. Discussed all the recommendations made by HANDKERCHIEF CUTTER with the patient directly. She voiced understanding of all the above. Last Recorded V/S: Last Vital Signs Temp 97.2 F 03/02/20 01:40 Pulse 62 03/02/20 01:40 Resp 18 03/02/20 01:40 BP 123/57 L 03/02/20 01:40 Pulse Ox 98 03/02/20 01:40 - Orders/Labs/Meds Orders: Active Orders 24 hr Category Date Time Status Saline Lock Insert [OM.PC] Stat Oth 03/01/20 22:05 Ordered Labs: Laboratory Tests 03/01/20 03/01/20 03/01/20 Range/Units 22:42 22:42 22:42 WBC 9.00 (4.0-11.0) K/uL RBC 3.99 L (4.30-5.90) M/uL Hgb 10.7 L (12.0-16.0) g/dL Hct 33.1 L (36.0-46.0) % MCV 83.0 (80.0-98.0) fL MCH 26.8 L (27.0-32.0) pg MCHC 32.3 (31.0-37.0) g/dL RDW Std Deviation 41.4 (28.0-62.0) fl RDW Coeff of Alessandra 14 (11.0-15.0) % Plt Count 300 (150-400) K/uL MPV 9.10 (7.40-12.00) fL Neut % (Auto) 58.2 (48.0-80.0) % Lymph % (Auto) 28.2 (16.0-40.0) % Alpine % (Auto) 6.6 (0.0-15.0) % Eos % (Auto) 6.7 (0.0-7.0) % Baso % (Auto) 0.3 (0.0-1.5) % Neut # (Auto) 5.2 (1.4-5.7) K/uL Lymph # (Auto) 2.5 H (0.6-2.4) K/uL Alpine # (Auto) 0.6 (0.0-0.8) K/uL Eos # (Auto) 0.6 (0.0-0.7) K/uL Baso # (Auto) 0.0 (0.0-0.1) K/uL Nucleated RBC % 0.0 /100WBC Nucleated RBCs # 0 K/uL Sodium 138 (136-145) mmol/L Potassium 4.3 (3.5-5.1) mmol/L Chloride 105 (98-107) mmol/L Carbon Dioxide 23.0 (21.0-32.0) mmol/L BUN 14 (7.0-18.0) mg/dL Creatinine 1.2 H (0.6-1.0) mg/dL Est Cr Clr Drug Dosing 59.28 mL/min Estimated GFR (MDRD) > 60.0 ml/min Glucose 96 (74-106) mg/dL Calcium 9.1 (8.5-10.1) mg/dL HCG, Quant 421.0 mIU/mL Urine Color Urine Appearance Urine pH (5.0-8.0) Ur Specific [employer] (1.001-1.035) Urine Protein (NEGATIVE) mg/dL Urine Glucose (UA) (NEGATIVE) mg/dL Urine Ketones (NEGATIVE) mg/dL Urine Occult Blood (NEGATIVE) Urine Nitrite (NEGATIVE) Urine Bilirubin (NEGATIVE) Urine Urobilinogen (<2.0) EU/dL Ur Leukocyte Esterase (NEGATIVE) Blood Type 03/01/20 03/01/20 Range/Units 22:42 23:20 WBC (4.0-11.0) K/uL RBC (4.30-5.90) M/uL Hgb (12.0-16.0) g/dL Hct (36.0-46.0) % MCV (80.0-98.0) fL MCH (27.0-32.0) pg MCHC (31.0-37.0) g/dL RDW Std Deviation (28.0-62.0) fl RDW Coeff of Alessandra (11.0-15.0) % Plt Count (150-400) K/uL MPV (7.40-12.00) fL Neut % (Auto) (48.0-80.0) % Lymph % (Auto) (16.0-40.0) % Alpine % (Auto) (0.0-15.0) % Eos % (Auto) (0.0-7.0) % Baso % (Auto) (0.0-1.5) % Neut # (Auto) (1.4-5.7) K/uL Lymph # (Auto) (0.6-2.4) K/uL Alpine # (Auto) (0.0-0.8) K/uL Eos # (Auto) (0.0-0.7) K/uL Baso # (Auto) (0.0-0.1) K/uL Nucleated RBC % /100WBC Nucleated RBCs # K/uL Sodium (136-145) mmol/L Potassium (3.5-5.1) mmol/L Chloride (98-107) mmol/L Carbon Dioxide (21.0-32.0) mmol/L BUN (7.0-18.0) mg/dL Creatinine (0.6-1.0) mg/dL Est Cr Clr Drug Dosing mL/min Estimated GFR (MDRD) ml/min Glucose (74-106) mg/dL Calcium (8.5-10.1) mg/dL HCG, Quant mIU/mL Urine Color YELLOW Urine Appearance CLEAR Urine pH 6.0 (5.0-8.0) Ur Specific [employer] 1.025 (1.001-1.035) Urine Protein NEGATIVE (NEGATIVE) mg/dL Urine Glucose (UA) NEGATIVE (NEGATIVE) mg/dL Urine Ketones NEGATIVE (NEGATIVE) mg/dL Urine Occult Blood NEGATIVE (NEGATIVE) Urine Nitrite NEGATIVE (NEGATIVE) Urine Bilirubin NEGATIVE (NEGATIVE) Urine Urobilinogen 1.0 (<2.0) EU/dL Ur Leukocyte Esterase NEGATIVE (NEGATIVE) Blood Type O POSITIVE Meds: Medications Discontinued Medications Generic Name Dose Route Start Last Admin Trade Name Freq PRN Reason Stop Dose Admin Acetaminophen 650 mg 03/01/20 22:17 03/01/20 22:47 Tylenol PO 03/01/20 22:18 650 mg NOW ONE Administration Sodium Chloride 1,000 mls @ 999 mls/hr 03/01/20 22:30 03/01/20 22:47 Normal Saline IV 999 mls/hr ASDIRECTED FE Administration Sodium Chloride 10 ml 03/01/20 22:05 Saline Flush FLUSH ASDIRECTED PRN Keep Vein Open Sodium Chloride 2.5 ml 03/01/20 22:05 Saline Flush FLUSH ASDIRECTED PRN Keep Vein Open - Re-Assessments/Exams Free Text/Narrative Re-Assessment/Exam: 03/02/20 01:25 Case discussed with Hannah Frey, on-call with OB, who recommends follow-up with Dr. Valencia, repeat hCG in 2 days, however recommends to discuss directly with him as well. I did discuss the case directly with him as well and he agreed outpatient follow-up is recommended, 48-hour hCG quant and follow-up with him in the clinic for reassessment. It was discussed with the patient, as well as strict return instructions, rest, bedrest and pelvic rest. Departure - Departure Time of Disposition: 01:28 Disposition: Home, Self-Care 01 Clinical Impression: Abdominal pain affecting , Threatened - Discharge Information Instructions: Abdominal Pain During , Eibh-or-Fbex, Threatened Miscarriage, [id number] Referrals: Alexandria Negrete DO [Primary Care Provider] - Eduard Valencia MD [Physician] - 1 Day Forms: ED Department Discharge Additional Instructions: The ultrasound today was unable to visualize the , and therefore it is uncertain if you have a in the uterus or an ectopic , which is a in the wrong location. The hormone levels are too low to be able to tell this with certainty. I have discussed this with the HANDKERCHIEF CUTTER physician on-call, who recommends to follow-up in their office soon as possible and to have a repeat hormone level drawn in 48 hours. Return to the ER if you have any worsening pain, or if your pain is not well controlled with Tylenol, you may take 500 to 1000 mg every 8 hours for pain control. Do not take ibuprofen. Rest, drink plenty of fluids. No intercourse or other objects inserted into vaginal area. The following information is given to patients seen in the emergency department who are being discharged to home. This information is to outline your options for follow-up care. We provide all patients seen in our emergency department with a follow-up referral. The need for follow-up, as well as the timing and circumstances, are variable depending upon the specifics of your emergency department visit. If you don't have a primary care physician on staff, we will provide you with a referral. We always advise you to contact your personal physician following an emergency department visit to inform them of the circumstance of the visit and for follow-up with them and/or the need for any referrals to a consulting spe cialist. The emergency department will also refer you to a specialist when appropriate. This referral assures that you have the opportunity for follow-up care with a specialist. All of these measure are taken in an effort to provide you with optimal care, which includes your follow-up. Under all circumstances we always encourage you to contact your private physician who remains a resource for coordinating your care. When calling for follow-up care, please make the office aware that this follow-up is from your recent emergency room visit. If for any reason you are refused follow-up, please contact the [facility] Emergency Department at and asked to speak to the emergency department charge nurse. [facility] [address] [place] [id number] [facility] [address] [place] [id number] Sepsis Event Note (ED) - Evaluation Sepsis Screening Result: No Definite Risk - Focused Exam Vital Signs: Vital Signs Temp Pulse Resp BP Pulse Ox 03/02/20 01:40 97.2 F 62 18 123/57 L 98 03/01/20 21:29 97.5 F 72 18 124/80 98 - My Orders Last 24 Hours: My Active Orders 03/01/20 22:05 Saline Lock Insert [OM.PC] Stat - Assessment/Plan Last 24 Hours: My Active Orders 03/01/20 22:05 Saline Lock Insert [OM.PC] Stat
[2020-03-01] MEDS ORDERED: Sodium Chloride 0.9% 1,000 ML IV SCH (22:30)
[2020-03-01 23:19] LABS: BLOOD UREA NITROGEN,BUN 14 mg/dL (7.0-18.0); CHLORIDE,CL 105 mmol/L (98-107); GLUCOSE RANDOM 96 mg/dL (74-106); POTASSIUM,K 4.3 mmol/L (3.5-5.1); SODIUM,NA 138 mmol/L (136-145)
--- NOTE | 2020-03-02 00:12 | US ---
INDICATION: Cramping. Unable to definitely identify an intrauterine gestational sac on the previous ultrasound. Beta hCG on 02/27 was 173. Today the HCG is 421. COMPARISON: Transvaginal ultrasound of the pelvis from 02/27/2020 FINDINGS: Transvaginal ultrasound examination of the female pelvis was performed. Again seen is a small fluid collection within the superior uterine fundus, measuring up to 8 millimeters in length, without a good double decidual sac sign and without any identifiable parts. Since no identifiable intrauterine gestational sac is seen and the patient`s beta HCG has continued to rise, the findings are worrisome for an ectopic gestation. The uterus is anteverted with no evidence of mass. The endometrial lining is now normal in thickness at 4 mm. It previously measured 12 millimeters. Again seen is the rounded area of solid appearing tissue in the posterior right ovary with increased color Doppler flow, consistent with a resolving corpus luteum cyst of . It remains stable in size at 1.5 centimeters. The left ovary remains normal in appearance with no sign of any mass or cyst. The ovaries are normal in size, the right measuring 3.4 x 2.0 x 3.7 cm and the left measuring 2.3 x 3.4 x 2.3 cm. There is normal color and pulse doppler flow in both ovaries. There is a new small amount of free fluid in the cul-de-sac, nonspecific. I discussed the findings with Dr. Abernathy at 0008 hours on 03/02/2020. IMPRESSION: No identifiable intrauterine gestational sac. There continues to be a small amount of fluid in the superior uterine cavity, a pseudo gestational sac. This fluid collection is now flatter and more irregular looking than on the ultrasound that I read 2 days ago. With the doubling of hCG, the findings are worrisome for an ectopic gestation. Early intrauterine gestation and completed spontaneous do remain in the differential diagnosis. New small amount of free fluid in the pelvis. This is nonspecific. Continued 1.5 centimeter solid rounded region in the right ovary with increased color Doppler flow, consistent with a resolving corpus luteum cyst of . This does not have the appearance of an ectopic gestation. Dictated by Jerardo Husain MD @ Mar 01 2020 11:55PM Signed by Dr. Jerardo Husain @ Mar 02 2020 12:11AM
== END 2020-03-02 01:40 | disposition home or self-care (01) ==
LOC: MW.ED 21:07
DX: O20.0 Threatened abortion (principal); O26.891 Other specified pregnancy related conditions, first trimester; R10.31 Right lower quadrant pain; R10.32 Left lower quadrant pain; Z98.890 Other specified postprocedural states; Z3A.01 Less than 8 weeks gestation of pregnancy
CPT/HCPCS: 36415; 76801; 80048; 81003; 84702; 85025; 86900; 86901; 96360; 99284; A9270; J7030; 99282

== ENCOUNTER 2020-03-07 09:40 | Emergency (ER) | payer MEDICAID ==
--- NOTE | 2020-03-07 10:00 | EDM.PDOC ---
ED HPI GENERAL MEDICAL PROBLEM - General Chief Complaint: Abdominal Pain Stated Complaint: RT SIDE PAIN Time Seen by Provider: 03/07/20 09:53 - History of Present Illness INITIAL COMMENTS - FREE TEXT/NARRATIVE: HISTORY AND PHYSICAL: History of present illness: 24-year-old female who is currently . 5 weeks by dates. 8 para 7 AB 0. States that she has had hip pain and this is her third visit. She went to [place] recently and on the way there got worsening hip pain and was seen in the emergency department. They wanted to work her up for appendicitis however she declined that work-up and left. She comes this morning because it hurts when she walks. Is in the right hip. It is in the groin. It does not radiate. There is no abdominal pain. No nausea, vomiting, diarrhea, anorexia, urinary symptoms. No other associated signs or symptoms. No other modifying, aggravating or alleviating factors. Review of systems: A 10-point review of systems, other than pertinent positives and negatives as stated per HPI, is otherwise negative. Past medical history: As per history of present illness and as reviewed below otherwise noncontributory. Surgical history: As per history of present illness and as reviewed below otherwise noncontributory. Social history: No reported history of drug or alcohol abuse. Family history: As per history of present illness and as reviewed below otherwise noncontri butory. Physical exam: VITAL SIGNS: Reviewed. GENERAL: In no apparent distress. HEAD: No signs of head trauma. EYES: Pupils are equal. Extraocular motions intact. EARS: Hearing grossly intact. MOUTH: Oropharynx is normal. NECK: No adenopathy, no JVD. CHEST: Chest with clear breath sounds bilaterally. No wheezes, rales, or rhonchi. CARDIAC: Regular rate and rhythm. Normal S1 and S2, without murmurs, gallops, or rubs. VASCULAR: Peripheral pulses normal and equal in all extremities. ABDOMEN: Soft, without detectable tenderness. No sign of distention. No rebound or guarding, and no masses palpated. MUSCULOSKELETAL: Full range of motion in all joints. When you have the patient engage her hip flexor and abductor there is pain. She has point tenderness on the groin at the hip flexor. Distal neurovascular function is intact. No abdominal tenderness at all. No CVA tenderness. No back tenderness. NEUROLOGIC EXAM: Alert and oriented x 3. No focal sensory or motor deficits. Speech normal. Follows commands. PSYCHIATRIC: Mood normal. SKIN: No rash or lesions. Initial Differential Diagnosis & Plan: Right hip abductor tendon Or flexor tendon strain. No evidence of bony injury. Able to ambulate. In the emergency department states it feels better with stretching exercises. Distal neurovascular function is intact. I do not feel that the patient has signs or symptoms consistent with appendicitis, fracture or vascular injury. We will send her home. 1. Hip flexor strain 2. First trimester 3. Multi parous right sided groin pain Pain Score (Numeric/FACES): 10 - Related Data Allergies Allergy/AdvReac Type Severity Reaction Status Date / Time No Known Allergies Allergy Verified 03/07/20 09:46 Home Meds: Home Meds Pnv No.95/Ferrous Fum/Folic AC [ Caplet] 1 each PO DAILY 03/07/20 [History] Past Medical History - Past Health History Medical/Surgical History: Denies Medical/Surgical History HEENT History: Reports: None Cardiovascular History: Reports: None Respiratory History: Reports: None Gastrointestinal History: Reports: None Genitourinary History: Reports: None NICKER History: Reports: Ectopic , , Other (See Below) Other NICKER History: Premature deliveries x 4; Musculoskeletal History: Reports: None Neurological History: Reports: None, Concussion Psychiatric History: Reports: None Endocrine/Metabolic History: Reports: None Insulin Pump 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 Truck 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 Hematologic History: Reports: Anemia Other Hematologic History: iron transfusion Immunologic History: Reports: None Oncologic (Cancer) History: Reports: None Dermatologic History: Reports: None - Infectious Disease History Infectious Disease History: Reports: None Other Infectious Disease History: Chlamydia - Past Surgical History Head Surgeries/Procedures: Reports: None HEENT Surgical History: Reports: None Cardiovascular Surgical History: Reports: None Respiratory Surgical History: Reports: None Female Surgical History: Reports: Section Endocrine Surgical History: Reports: None Neurological Surgical History: Reports: None Musculoskeletal Surgical History: Reports: None Oncologic Surgical History: Reports: None Dermatological Surgical History: Reports: None Social & Family History - Family History Family Medical History: Noncontributory Cardiac: Reports: Hypertension OBGYN: Reports: - Tobacco Use Smoking Status *Q: Never Smoker - Caffeine Use Caffeine Use: Reports: None - Recreational Drug Use Recreational Drug Use: No ED ROS GENERAL - Review of Systems Review Of Systems: See Below (noted) ED EXAM, RENAL/ - Physical Exam Exam: See Below (noted) Course - Vital Signs Last Recorded V/S: Last Vital Signs Temp 96.7 F L 03/07/20 09:53 Pulse 65 03/07/20 09:53 Resp 16 03/07/20 09:53 BP 103/69 03/07/20 09:53 Pulse Ox 99 03/07/20 09:53 Departure - Departure Time of Disposition: 09:54 Disposition: Home, Self-Care 01 Clinical Impression: Strain of hip flexor, First trimester - Discharge Information *PRESCRIPTION DRUG MONITORING PROGRAM REVIEWED*: Not Applicable *COPY OF PRESCRIPTION DRUG MONITORING REPORT IN PATIENT GAYLE: Not Applicable Instructions: Abdominal Pain During , [id number], First Trimester of , [id number], Muscle Strain, [id number], Adductor Muscle Strain Rehab-SportsMed Referrals: Alexandria Negrete DO [Primary Care Provider] - Forms: ED Department Discharge Additional Instructions: The following information is given to patients seen in the emergency department who are being discharged to home. This information is to outline your options for follow-up care. We provide all patients seen in our emergency department with a follow-up referral. The need for follow-up, as well as the timing and circumstances, are variable depending upon the specifics of your emergency department visit. If you don't have a primary care physician on staff, we will provide you with a referral. We always advise you to contact your personal physician following an emergency department visit to inform them of the circumstance of the visit and for follow-up with them and/or the need for any referrals to a consulting specialist. The emergency department will also refer you to a specialist when appropriate. This referral assures that you have the opportunity for follow-up care with a specialist. All of these measure are taken in an effort to provide you with optimal care, which includes your follow-up. Thank you for coming to the [facility] urgency department for your care today. It was Dr. Chou's pleasure to take care of you. [facility] - [facility] Professional [address], [address] [place] [address] You have a hip flexor tendon strain. Please use the stretches shown in the emergency department. We have also given you a guide for rehabilitation at home. Please follow-up with the orthopedic doctor. Under all circumstances we always encourage you to contact your private physician who remains a resource for coordinating your care. When calling for follow-up care, please make the office aware that this follow-up is from your recent emergency room visit. If for any reason you are refused follow-up, please contact the [facility] Emergency Department at and asked to speak to the emergency department charge nurse. Sepsis Event Note (ED) - Evaluation Sepsis Screening Result: No Definite Risk - Focused Exam Vital Signs: Vital Signs Temp Pulse Resp BP Pulse Ox 03/07/20 09:53 96.7 F L 65 16 103/69 99 03/07/20 09:46 95.6 F L 68 16 117/68 98
== END 2020-03-07 10:01 | disposition home or self-care (01) ==
LOC: MW.ED 09:40
DX: O9A.211 Injury, poisoning and certain other consequences of external causes complicating pregnancy, first trimester (principal); S76.011A Strain of muscle, fascia and tendon of right hip, initial encounter; Z3A.01 Less than 8 weeks gestation of pregnancy; X58.XXXA Exposure to other specified factors, initial encounter
CPT/HCPCS: 99282; 99283

== ENCOUNTER 2020-03-17 09:55 | Emergency (ER) | payer MEDICAID ==
[2020-03-17] MEDS ORDERED: Sodium Chloride 0.9% 2.5 ML Syringe FLUSH PRN (10:10)
[2020-03-17] MEDS ORDERED: Sodium Chloride 0.9% 10 ML Syringe FLUSH PRN (10:10)
[2020-03-17] MEDS ORDERED: Acetaminophen 325 MG Tab PO ONE (10:12)
--- NOTE | 2020-03-17 10:22 | EDM.PDOC ---
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 She is never had such a complication. She is lightheaded when she stands up. She has a history of anemia and 7 pregnancies that resulted in . She is 6 weeks now. Review of her records indicates a type is O+. Patient complaint that she did not think acetaminophen alone would be sufficient to manage her pain. Review of systems: As per history of present illness and below otherwise all systems reviewed and negative. Past medical history: As per history of present illness and as reviewed below otherwise noncontributory. Surgical history: As per history of present illness and as reviewed below otherwise noncontributory. Social history: No reported history of drug or alcohol abuse. Family history: As per history of present illness and as reviewed below otherwise noncontributory. Physical exam: Constitutional - well developed, well-nourished and in no acute distress HEENT - normocephalic, no evidence of trauma - external nose and mouth normal - no mass in neck and no JVD - mucosae moist EYES - full EOM, PERRL, no icterus - no evidence of inflammation, injection, or drainage Respiratory - no respiratory distress, equal bilateral expansion, lungs clear to auscultation and no abnormal lung sounds Cardiovascular - Regular Rhythm with S1 and S2 appreciated and no murmur, gallop or rub. GI -there is no tenderness in her abdomen. She does have slight enlargement of the abdomen but I have not seen her before so I do not know how this compared. There is no discretely palpable uterus. Abdomen soft without distension or organomegaly - normal bowel sounds - no guard or rebound Musculoskeletal no gross deformity of long bones or joints - no tenderness, swelling or edema Neurologic - Alert and oriented times four - CN II-XII grossly intact - motor sensory and coordination symmetrically normal Psychiatric - appropriate mood and affect with normal thought content Hematologic - No petechiae or purpura - mucosa appropriate color and sclera not pale - normal nail bed color and refill Integument - no rash or evidence of trauma - normal turgor Diagnostics: [] Therapeutics: [] Impression: [] Plan: [] Definitive disposition and diagnosis as appropriate pending reevaluation and review of above. Abdominal Pain Score (Numeric/FACES): 8 - Related Data Allergies Allergy/AdvReac Type Severity Reaction Status Date / Time No Known Allergies Allergy Verified 03/17/20 09:59 Home Meds: Home Meds Pnv No.95/Ferrous Fum/Folic AC [ Caplet] 1 each PO DAILY 03/07/20 [History] Past Medical History - Past Health History Medical/Surgical History: Denies Medical/Surgical History HEENT History: Reports: None Cardiovascular History: Reports: None Respiratory History: Reports: None Gastrointestinal History: Reports: None Genitourinary History: Reports: None CARE CENTER MANAGER History: Reports: Ectopic , , Other (See Below) Other CARE CENTER MANAGER History: Premature deliveries x 4; Musculoskeletal History: Reports: None Neurological History: Reports: None, Concussion Psychiatric History: Reports: None Endocrine/Metabolic History: Reports: None Insulin Pump Model and Marketing Information Analyst: None Hematologic History: Reports: Anemia Other Hematologic History: iron transfusion Immunologic History: Reports: None Oncologic (Cancer) History: Reports: None Dermatologic History: Reports: None - Infectious Disease History Infectious Disease History: Reports: None Other Infectious Disease History: Chlamydia - Past Surgical History Head Surgeries/Procedures: Reports: None HEENT Surgical History: Reports: None Cardiovascular Surgical History: Reports: None Respiratory Surgical History: Reports: None Female Surgical History: Reports: Section Endocrine Surgical History: Reports: None Neurological Surgical History: Reports: None Musculoskeletal Surgical History: Reports: None Oncologic Surgical History: Reports: None Dermatological Surgical History: Reports: None Social & Family History - Family History Family Medical History: Noncontributory Cardiac: Reports: Hypertension OBGYN: Reports: - Tobacco Use Smoking Status *Q: Never Smoker - Caffeine Use Caffeine Use: Reports: Coffee - Recreational Drug Use Recreational Drug Use: No ED ROS GENERAL - Review of Systems Review Of Systems: Comprehensive ROS is negative, except as noted in HPI. ED EXAM, GENERAL - Physical Exam Exam: See Below Free Text/Narrative:: Exam is in the HPI section Course - Vital Signs Text/Narrative:: 11:50 AM. The case was discussed with Dr. Valencia. The patient has 4 visits to this emergency department during this . She has no sac in her uterus. She is stable and feels better and wants to go home. Dr. Portillo and felt like if in my opinion she was safe to go home she should have an hCG repeated in 2 days and a clinic visit on the . Will be discharged in satisfactory condition Last Recorded V/S: Last Vital Signs Temp 97.3 F 03/17/20 09:59 Pulse 72 03/17/20 11:35 Resp 17 03/17/20 10:45 BP 99/45 L 03/17/20 11:35 Pulse Ox 99 03/17/20 11:35 - Orders/Labs/Meds Orders: Active Orders 24 hr Category Date Time Status UA W/RENATO RFLX IF INDICATED [URIN] Stat Lab 03/17/20 10:10 Ordered Sodium Chloride 0.9% [Saline Flush] Med 03/17/20 10:10 Active 10 ml FLUSH ASDIRECTED PRN Sodium Chloride 0.9% [Saline Flush] Med 03/17/20 10:10 Active 2.5 ml FLUSH ASDIRECTED PRN Saline Lock Insert [OM.PC] Stat Oth 03/17/20 10:10 Ordered Medication Orders Sodium Chloride (Saline Flush) 10 ml FLUSH ASDIRECTED PRN PRN Reason: Keep Vein Open Last Admin: 03/17/20 10:18 Dose: 10 ml Documented by: [id number] Sodium Chloride (Saline Flush) 2.5 ml FLUSH ASDIRECTED PRN PRN Reason: Keep Vein Open Last Admin: 03/17/20 10:18 Dose: 2.5 ml Documented by: [id number] Labs: Laboratory Tests 03/17/20 03/17/20 Range/Units 10:23 10:23 WBC 6.62 (4.0-11.0) K/uL RBC 4.01 L (4.30-5.90) M/uL Hgb 10.8 L (12.0-16.0) g/dL Hct 33.7 L (36.0-46.0) % MCV 84.0 (80.0-98.0) fL MCH 26.9 L (27.0-32.0) pg MCHC 32.0 (31.0-37.0) g/dL RDW Std Deviation 43.0 (28.0-62.0) fl RDW Coeff of Alessandra 14 (11.0-15.0) % Plt Count 297 (150-400) K/uL MPV 9.10 (7.40-12.00) fL Neut % (Auto) 51.2 (48.0-80.0) % Lymph % (Auto) 35.5 (16.0-40.0) % [place] % (Auto) 5.1 (0.0-15.0) % Eos % (Auto) 7.9 H (0.0-7.0) % Baso % (Auto) 0.3 (0.0-1.5) % Neut # (Auto) 3.4 (1.4-5.7) K/uL Lymph # (Auto) 2.4 (0.6-2.4) K/uL [place] # (Auto) 0.3 (0.0-0.8) K/uL Eos # (Auto) 0.5 (0.0-0.7) K/uL Baso # (Auto) 0.0 (0.0-0.1) K/uL Nucleated RBC % 0.0 /100WBC Nucleated RBCs # 0 K/uL Sodium 138 (136-145) mmol/L Potassium 3.7 (3.5-5.1) mmol/L Chloride 106 (98-107) mmol/L Carbon Dioxide 20.9 L (21.0-32.0) mmol/L BUN 5 L (7.0-18.0) mg/dL Creatinine 0.9 (0.6-1.0) mg/dL Est Cr Clr Drug Dosing 85.98 mL/min Estimated GFR (MDRD) > 60.0 ml/min Glucose 112 H (74-106) mg/dL Calcium 8.5 (8.5-10.1) mg/dL HCG, Quant 1419.0 mIU/mL Meds: Medications Generic Name Dose Route Start Last Admin Trade Name Freq PRN Reason Stop Dose Admin Sodium Chloride 10 ml 03/17/20 10:10 03/17/20 10:18 Saline Flush FLUSH 10 ml ASDIRECTED PRN Administration Keep Vein Open Sodium Chloride 2.5 ml 03/17/20 10:10 03/17/20 10:18 Saline Flush FLUSH 2.5 ml ASDIRECTED PRN Administration Keep Vein Open Discontinued Medications Generic Name Dose Route Start Last Admin Trade Name Freq PRN Reason Stop Dose Admin Acetaminophen 650 mg 03/17/20 10:12 03/17/20 10:17 Tylenol PO 03/17/20 10:13 650 mg NOW ONE Administration Departure - Departure Time of Disposition: 11:45 Disposition: Home, Self-Care 01 Clinical Impression: Threatened Abdominal pain in Qualifiers: Trimester: first trimester Qualified Code(s): O26.891 - Other specified related conditions, first trimester - Discharge Information Referrals: PCP,None [Primary Care Provider] - Forms: ED Department Discharge Additional Instructions: Turn if worse. Return if dizzy like you are passing out. Return if heavy bleeding or fever. Have hCG drawn before you see the clinic in [address] Valencia has requested that you call today and make an appointment to be seen at the clinic on Sunday after the lab is drawn. You may have to use his name and tell them that the emergency doctor spoke with him. [facility] [address] [place] [address] [facility] [address] [place] [address] The following information is given to patients seen in the emergency department who are being discharged to home. This information is to outline your options for follow-up care. We provide all patients seen in our emergency department with a follow-up referral. The need for follow-up, as well as the timing and circumstances, are variable depending upon the specifics of your emergency department visit. If you don't have a primary care physician on staff, we will provide you with a referral. We always advise you to contact your personal physician following an emergency department visit to inform them of the circumstance of the visit and for follow-up with them and/or the need for any referrals to a consulting specialist. The emergency department will also refer you to a specialist when appropriate. This referral assures that you have the opportunity for follow-up care with a specialist. All of these measure are taken in an effort to provide you with optimal care, which includes your follow-up. Under all circumstances we always encourage you to contact your private physician who remains a resource for coordinating your care. When calling for follow-up care, please make the office aware that this follow-up is from your recent emergency room visit. If for any reason you are refused follow-up, please contact the [facility] Emergency Department at and asked to speak to the emergency department charge nurse. Sepsis Event Note (ED) - Evaluation Sepsis Screening Result: No Definite Risk - Focused Exam Vital Signs: Vital Signs Temp Pulse Resp BP Pulse Ox 03/17/20 11:35 72 99/45 L 99 03/17/20 10:45 87 17 102/58 L 98 03/17/20 09:59 97.3 F 88 18 92/42 L 99 - My Orders Last 24 Hours: My Active Orders 03/17/20 10:10 UA W/RENATO RFLX IF INDICATED [URIN] Stat Sodium Chloride 0.9% [Saline Flush] 10 ml FLUSH ASDIRECTED PRN Sodium Chloride 0.9% [Saline Flush] 2.5 ml FLUSH ASDIRECTED PRN Saline Lock Insert [OM.PC] Stat - Assessment/Plan Last 24 Hours: My Active Orders 03/17/20 10:10 UA W/RENATO RFLX IF INDICATED [URIN] Stat Sodium Chloride 0.9% [Saline Flush] 10 ml FLUSH ASDIRECTED PRN Sodium Chloride 0.9% [Saline Flush] 2.5 ml FLUSH ASDIRECTED PRN Saline Lock Insert [OM.PC] Stat
--- NOTE | 2020-03-17 11:18 | US ---
First trimester obstetrical ultrasound: Multiple real-time images were obtained transvaginally. Comparison: No previous study for current is available. Findings: Debris is identified within the endometrial cavity. No decidual reaction or normal appearing gestational sac is seen. Uterus is anteverted. Follicles are noted within both ovaries. Small amount of free fluid is identified. Measurements: Uterus: Length 8.6 cm, AP height 4.2 cm, transverse width 6.0 cm Right ovary: 3.4 x 2.4 x 2.5 cm Left ovary: 2.8 x 2.5 x 3.0 cm Impression: 1. Debris within the endometrial cavity. 2. No decidual reaction or normal appearing gestational sac is seen. 3. Small amount of free fluid within the cul-de-sac. Diagnostic code #3 This report was dictated in MDT
[2020-03-17 11:20] LABS: BLOOD UREA NITROGEN,BUN 5 mg/dL (7.0-18.0); CARBON DIOXIDE,CO2 20.9 mmol/L (21.0-32.0); CHLORIDE,CL 106 mmol/L (98-107); GLUCOSE RANDOM 112 mg/dL (74-106); POTASSIUM,K 3.7 mmol/L (3.5-5.1); SODIUM,NA 138 mmol/L (136-145)
== END 2020-03-17 12:18 | disposition home or self-care (01) ==
LOC: MW.ED 09:55
DX: O20.0 Threatened abortion (principal); Z3A.01 Less than 8 weeks gestation of pregnancy
CPT/HCPCS: 36415; 76801; 80048; 84702; 85025; 99284; A9270; 99282

== ENCOUNTER 2020-05-12 09:03 | Emergency (ER) | payer MEDICAID ==
[2020-05-12] MEDS ORDERED: Azithromycin 250 MG Tab PO ONE (10:49)
[2020-05-12] MEDS ORDERED: cefTRIAXone 250 MG in Lidocaine 1% 1 ML IM ONE (10:49)
[2020-05-12] MEDS ORDERED: Cephalexin 500 MG Cap PO ONE (10:49)
--- NOTE | 2020-05-12 10:51 | EDM.PDOC ---
ED HPI GENERAL MEDICAL PROBLEM - General Chief Complaint: Genitourinary Problem Stated Complaint: POSSIBLE UTI Time Seen by Provider: 05/12/20 09:08 - History of Present Illness INITIAL COMMENTS - FREE TEXT/NARRATIVE: HISTORY AND PHYSICAL: History of present illness: Is a 25-year-old female who presents ER today concerned about possibility of urinary tract infection/STD. Patient reports that she recently found out that her significant other has been unfaithful and she is concerned that she may contracted an STD from. Patient denies any recent fevers, shakes, chills, nausea, vomiting, diarrhea, frequency, urgency. Patient does admit to dysuria. Patient reports a vaginal discharge with some odor. Patient denies any chest pain or abdominal pain. Patient is also complaining of pain to her left lower molar teeth that she currently has an appointment to see dentist but not for 1 to 2 weeks. Patient denies any history of hypertension, diabetes, liver, lung, kidney problems. Patient reports prior surgery for an ectopic . Patient has no known drug allergies. Patient denies any tobacco alcohol or drugs. Review of systems: As per history of present illness and below otherwise all systems reviewed and negative. Past medical history: As per history of present illness and as reviewed below otherwise noncontributory. Surgical history: As per history of present illness and as reviewed below otherwise noncontributory. Social history: No reported history of drug or alcohol abuse. Family history: As per history of present illness and as reviewed below otherwise noncontributory. Physical exam: Constitutional: Patient is oriented to person, place, and time. Appears well- developed and well-nourished. No distress. HEENT: Moist mucous membranes Head: Normocephalic and atraumatic Eyes: Right eye exhibits no discharge. Left eye exhibits no discharge. No scleral icterus Neck: Normal range of motion. No tracheal deviation present. Cardiovascular: Normal rate and regular rhythm. Pulmonary: Effort normal, no respiratory distress. Abd: Soft, nondistended, no rebound/guarding, no psoas or obturator signs, no tenderness at Mcberney's point, no Sanchez's sign. Pt does not present with an exam that would be consistent with an acute surgical abdomen at this time Musculoskeletal: Normal range of motion Neurologic: Alert and oriented to person, place and time. Skin: [place], warm and dry. Psychiatric: Normal mood and affect. Behavior is normal. Judgment and thought content normal. Nursing note and vital signs have been reviewed Patient has cavitary lesion to her left lower premolar with small amount of soft tissue swelling to her gumline at the tooth. Patient has no trismus Diagnostics: Urinalysis with multiple epithelial cells consistent with likely contaminant specimen. Patient with 5-7 WBCs in her urine. Vaginitis panel: STD panel/GC/Chlamydia: Assessment and plan: This is a 25-year-old female who presents ER today concerned about STD/UTI and also is complaining of left lower tooth pain. Patient reports that she does have a vaginal discharge and is concerned secondary to infidelity with her significant other. Patient will be started on Keflex to treat her left lower molar dental infection. This would also likely treat her urinary tract infection as well although the UA that was obtained appears to be more consistent with contamination. Patient will be fairly given Rocephin and doxycycline to empirically treat her for STD given her concerns. Reassessment at the time of disposition demonstrates that the patient is in no acute distress. The patient has remained stable throughout the entire ED visit and is without objective evidence for acute process requiring urgent intervention or hospitalization. The patient is stable for discharge, counseling is provided as documented above, discussed symptomatic treatment and specific conditions for return. I have spoken with the patient/caregiver and discussed todays findings, in addition to providing specific details for the plan of care. Questions are answered and there is agreement with the plan. Definitive disposition and diagnosis as appropriate pending reevaluation and review of above. urinary Pain Score (Numeric/FACES): 7 - Related Data Allergies Allergy/AdvReac Type Severity Reaction Status Date / Time No Known Allergies Allergy Verified 05/12/20 09:13 Home Meds: Home Meds Ibuprofen 600 mg PO Q6HR PRN #30 tablet 05/12/20 [Rx] cephALEXin [Keflex] 500 mg PO TID #30 capsule 05/12/20 [Rx] Past Medical History - Past Health History Medical/Surgical History: Denies Medical/Surgical History HEENT History: Reports: None Cardiovascular History: Reports: None Respiratory History: Reports: None Gastrointestinal History: Reports: None Genitourinary History: Reports: None LABORATORY [employer] GR[employer]ER History: Reports: Ectopic , , Other (See Below) Other LABORATORY [employer] GR[employer] History: Premature deliveries x 4; Musculoskeletal History: Reports: None Neurological History: Reports: None, Concussion Psychiatric History: Reports: None Endocrine/Metabolic History: Reports: None Insulin Pump Model and Abrasive Mixer Helper: None Hematologic History: Reports: Anemia Other Hematologic History: iron transfusion Immunologic History: Reports: None Oncologic (Cancer) History: Reports: None Dermatologic History: Reports: None - Infectious Disease History Infectious Disease History: Reports: None Other Infectious Disease History: Chlamydia - Past Surgical History Head Surgeries/Procedures: Reports: None HEENT Surgical History: Reports: None Cardiovascular Surgical History: Reports: None Respiratory Surgical History: Reports: None Female Surgical History: Reports: Section Endocrine Surgical History: Reports: None Neurological Surgical History: Reports: None Musculoskeletal Surgical History: Reports: None Oncologic Surgical History: Reports: None Dermatological Surgical History: Reports: None Social & Family History - Family History Family Medical History: Noncontributory Cardiac: Reports: Hypertension OBGYN: Reports: - Caffeine Use Caffeine Use: Reports: Coffee ED ROS GENERAL - Review of Systems Review Of Systems: See Below ED EXAM, GENERAL - Physical Exam Exam: See Below Course - Vital Signs Last Recorded V/S: Last Vital Signs Temp 98.4 F 05/12/20 09:10 Pulse 53 L 05/12/20 09:10 Resp 16 05/12/20 09:10 BP 138/83 05/12/20 09:10 Pulse Ox 99 05/12/20 09:10 - Orders/Labs/Meds Orders: Active Orders 24 hr Category Date Time Status CHLAMYDIA AND GONORRHEA BY TMA Stat Lab 05/12/20 09:40 Received TRICH/JG/CAND BY DNA PROBE [MOLEC] Stat Lab 05/12/20 09:40 Received Labs: Laboratory Tests 05/12/20 05/12/20 Range/Units 09:45 09:45 Urine Color YELLOW Urine Appearance SLT CLOUDY Urine pH 6.0 (5.0-8.0) Ur Specific [place] >= 1.030 (1.001-1.035) Urine Protein TRACE H (NEGATIVE) mg/dL Urine Glucose (UA) NEGATIVE (NEGATIVE) mg/dL Urine Ketones NEGATIVE (NEGATIVE) mg/dL Urine Occult Blood NEGATIVE (NEGATIVE) Urine Nitrite POSITIVE H (NEGATIVE) Urine Bilirubin NEGATIVE (NEGATIVE) Urine Urobilinogen 0.2 (<2.0) EU/dL Ur Leukocyte Esterase TRACE H (NEGATIVE) Urine RBC 0-1 (0-2/HPF) Urine WBC 5-7 (0-5/HPF) Ur Epithelial Cells MANY (NONE-FEW) Urine Bacteria 1+ H (NEGATIVE) Urine Mucus LIGHT (NONE-MOD) Urine HCG, Qual NEGATIVE (NEGATIVE) Departure - Departure Time of Disposition: 10:48 Disposition: Home, Self-Care 01 Condition: Good Clinical Impression: Dental abscess, Toothache, Vaginal discharge, Concern about STD in female without diagnosis - Discharge Information Instructions: Sexually Transmitted Disease, [id number], Preventive Dental Care, Adult Referrals: PCP,None [Primary Care Provider] - Additional Instructions: You have been seen and evaluated today secondary to your concern about STD. Since it may take 1 to 2 days for the test results to be obtained for your STD results, you have been empirically treated to cover gonorrhea and chlamydia. You have been given a shot of Rocephin as well as 1 g of Zithromax. You also have what appears to be a cavity and a small dental abscess causing the pain in your left lower molar. You will be given a prescription for Keflex. Please make an appointment see your dentist as soon as possible. You will be given a prescription for ibuprofen to assist with your toothache as well. The following information is given to patients seen in the emergency department who are being discharged to home. This information is to outline your options for follow-up care. We provide all patients seen in our emergency department with a follow-up referral. The need for follow-up, as well as the timing and circumstances, are variable depending upon the specifics of your emergency department visit. If you don't have a primary care physician on staff, we will provide you with a referral. We always advise you to contact your personal physician following an emergency department visit to inform them of the circumstance of the visit and for follow-up with them and/or the need for any referrals to a consulting specialist. The emergency department will also refer you to a specialist when appropriate. This referral assures that you have the opportunity for follow-up care with a specialist. All of these measure are taken in an effort to provide you with optimal care, which includes your follow-up. [facility] - Primary Care [address] [place] [id number] [place] [address] Under all circumstances we always encourage you to contact your private physician who remains a resource for coordinating your care. When calling for follow-up care, please make the office aware that this follow-up is from your recent emergency room visit. If for any reason you are refused follow-up, please contact the [facility] Emergency Department at and asked to speak to the emergency department charge nurse. Sepsis Event Note (ED) - Evaluation Sepsis Screening Result: No Definite Risk - Focused Exam Vital Signs: Vital Signs Temp Pulse Resp BP Pulse Ox 05/12/20 09:10 98.4 F 53 L 16 138/83 99 - My Orders Last 24 Hours: My Active Orders 05/12/20 09:40 CHLAMYDIA AND GONORRHEA BY TMA Stat TRICH/JG/CAND BY DNA PROBE [MOLEC] Stat - Assessment/Plan Last 24 Hours: My Active Orders 05/12/20 09:40 CHLAMYDIA AND GONORRHEA BY TMA Stat TRICH/JG/CAND BY DNA PROBE [MOLEC] Stat
[2020-05-12] MEDS ORDERED: Azithromycin 250 MG Tab ONE (10:52)
[2020-05-12] MEDS ORDERED: Azithromycin 250 MG Tab PO STA (10:55)
[2020-05-13 15:06] LABS: C.TRACHOMATIS BY TMA Negative (Negative); N.GONORRHOEAE BY TMA Negative (Negative)
== END 2020-05-12 11:07 | disposition home or self-care (01) ==
LOC: MW.ED 09:03
DX: K04.7 Periapical abscess without sinus (principal); N89.8 Other specified noninflammatory disorders of vagina; Z20.2 Contact with and (suspected) exposure to infections with a predominantly sexual mode of transmission
CPT/HCPCS: 81001; 81025; 87480; 87491; 87510; 87591; 87660; 96372; 99283; A9270; J0696; J2001

== ENCOUNTER 2020-05-14 22:31 | Emergency (ER) | payer MEDICAID ==
[2020-05-14] MEDS ORDERED: traMADol 50 MG Tab PO ONE (22:46)
--- NOTE | 2020-05-14 22:51 | EDM.PDOC ---
ED HPI GENERAL MEDICAL PROBLEM - General Chief Complaint: ENT Problem Stated Complaint: LT SIDE TOOTHACHE, FACE NUMB Time Seen by Provider: 05/14/20 22:43 - History of Present Illness INITIAL COMMENTS - FREE TEXT/NARRATIVE: HISTORY AND PHYSICAL: History of present illness: This a 25-year-old female who was seen by me 1 to 2 days ago secondary to dental pain and was prescribed amoxicillin and ibuprofen presents ER today secondary to worsening pain to her left lower molar and now pain is well noted to her left upper molar. Patient denies any other symptomatology. Patient reports that she does have an appoint with a dentist on Sunday. Review of systems: As per history of present illness and below otherwise all systems reviewed and negative. Past medical history: As per history of present illness and as reviewed below otherwise noncontributory. Surgical history: As per history of present illness and as reviewed below otherwise noncontributory. Social history: No reported history of drug or alcohol abuse. Family history: As per history of present illness and as reviewed below otherwise noncontributory. Physical exam: Constitutional: Patient is oriented to person, place, and time. Appears well-developed and well-nourished. No distress. HEENT: Moist mucous membranes Head: Normocephalic and atraumatic Eyes: Right eye exhibits no discharge. Left eye exhibits no discharge. No scleral icterus Neck: Normal range of motion. No tracheal deviation present. Cardiovascular: Normal rate and regular rhythm. Pulmonary: Effort normal, no respiratory distress. Abdominal: No distention Musculoskeletal: Normal range of motion Neurologic: Alert and oriented to person, place and time. Skin: [place], warm and dry. Psychiatric: Normal mood and affect. Behavior is normal. Judgment and thought content normal. Nursing note and vital signs have been reviewed Patient's ER physical exam is significant for tenderness to palpation to her left lower premolar as well as her left upper molar. There is no significant soft tissue swelling at the gumline. There is no edema or abscess. Patient has no trismus or airway compromise. Assessment and plan: 25-year-old female who presents ER today with persistent dental pain despite being on antibiotics and ibuprofen. Patient be given 1 Ultram here in the ED and a prescription for 8 Ultram to take to last until Sunday when she sees a dentist. Patient is clinically and hemodynamically stable. Patient does not exhibit any evidence of significant dental abscess or abscess involving her airway. Reassessment at the time of disposition demonstrates that the patient is in no acute distress. The patient has remained stable throughout the entire ED visit and is without objective evidence for acute process requiring urgent intervention or hospitalization. The patient is stable for discharge, counseling is provided as documented above, discussed symptomatic treatment and specific conditions for return. I have spoken with the patient/caregiver and discussed todays findings, in addition to providing specific details for the plan of care. Questions are answered and there is agreement with the plan. Definitive disposition and diagnosis as appropriate pending reevaluation and review of above. - Related Data Allergies Allergy/AdvReac Type Severity Reaction Status Date / Time No Known Allergies Allergy Verified 05/14/20 22:46 Home Meds: Home Meds Fluconazole [Diflucan] 150 mg PO ONETIME #1 tab 05/12/20 [Rx] Ibuprofen 600 mg PO Q6HR PRN #30 tablet 05/12/20 [Rx] cephALEXin [Keflex] 500 mg PO TID #30 capsule 05/12/20 [Rx] traMADol [Ultram] 50 mg PO Q6H PRN #8 tab 05/14/20 [Rx] Past Medical History - Past Health History Medical/Surgical History: Denies Medical/Surgical History HEENT History: Reports: None Cardiovascular History: Reports: None Respiratory History: Reports: None Gastrointestinal History: Reports: None Genitourinary History: Reports: None COUPLER History: Reports: Ectopic , , Other (See Below) Other COUPLER History: Premature deliveries x 4; Musculoskeletal History: Reports: None Neurological History: Reports: None, Concussion Psychiatric History: Reports: None Endocrine/Metabolic History: Reports: None Insulin Pump Model and Regulator Operator: None Hematologic History: Reports: Anemia Other Hematologic History: iron transfusion Immunologic History: Reports: None Oncologic (Cancer) History: Reports: None Dermatologic History: Reports: None - Infectious Disease History Infectious Disease History: Reports: None Other Infectious Disease History: Chlamydia - Past Surgical History Head Surgeries/Procedures: Reports: None HEENT Surgical History: Reports: None Cardiovascular Surgical History: Reports: None Respiratory Surgical History: Reports: None Female Surgical History: Reports: Section Endocrine Surgical History: Reports: None Neurological Surgical History: Reports: None Musculoskeletal Surgical History: Reports: None Oncologic Surgical History: Reports: None Dermatological Surgical History: Reports: None Social & Family History - Family History Family Medical History: Noncontributory Cardiac: Reports: Hypertension OBGYN: Reports: - Caffeine Use Caffeine Use: Reports: Coffee ED ROS GENERAL - Review of Systems Review Of Systems: See Below ED EXAM, GENERAL - Physical Exam Exam: See Below Course - Orders/Labs/Meds Orders: Active Orders 24 hr Category Date Time Status traMADol [Ultram] Med 05/14/20 22:46 Once 50 mg PO ONETIME ONE Departure - Departure Time of Disposition: 22:48 Disposition: Home, Self-Care 01 Clinical Impression: Dental caries - Discharge Information Instructions: Dental Abscess, [id number] Referrals: Justine Ruiz, [employer] [Primary Care Provider] - Additional Instructions: You were seen and evaluated in the ER today secondary to dental pain. Continue taking your antibiotic as well as the ibuprofen. We have also written for tramadol to assist with pain that you can take in addition to the ibuprofen that you are taking. Please keep your appointment with your dentist on Sunday as scheduled. The following information is given to patients seen in the emergency department who are being discharged to home. This information is to outline your options for follow-up care. We provide all patients seen in our emergency department with a follow-up referral. The need for follow-up, as well as the timing and circumstances, are variable depending upon the specifics of your emergency department visit. If you don't have a primary care physician on staff, we will provide you with a referral. We always advise you to contact your personal physician following an emergency department visit to inform them of the circumstance of the visit and for follow-up with them and/or the need for any referrals to a consulting specialist. The emergency department will also refer you to a specialist when appropriate. This referral assures that you have the opportunity for follow-up care with a specialist. All of these measure are taken in an effort to provide you with optimal care, which includes your follow-up. Under all circumstances we always encourage you to contact your private physician who remains a resource for coordinating your care. When calling for follow-up care, please make the office aware that this follow-up is from your recent emergency room visit. If for any reason you are refused follow-up, please contact the Emergency Department at and asked to speak to the emergency department charge nurse. [facility] - Primary Care [address] [place] [id number] [address] - My Orders Last 24 Hours: My Active Orders 05/14/20 22:46 traMADol [Ultram] 50 mg PO ONETIME ONE - Assessment/Plan Last 24 Hours: My Active Orders 05/14/20 22:46 traMADol [Ultram] 50 mg PO ONETIME ONE
== END 2020-05-14 23:08 | disposition home or self-care (01) ==
LOC: MW.ED 22:31
DX: K02.9 Dental caries, unspecified (principal)
CPT/HCPCS: 99282; 99283; A9270-GY

== ENCOUNTER 2020-06-03 21:34 | Emergency (ER) | payer MEDICAID ==
[2020-06-03] MEDS ORDERED: Acetaminophen/HYDROcodone 325-5 MG Tab PO ONE (21:58)
--- NOTE | 2020-06-03 22:02 | EDM.PDOC ---
ED HPI GENERAL MEDICAL PROBLEM - General Chief Complaint: General Stated Complaint: BROKEN TOOTH Time Seen by Provider: 06/03/20 21:43 - History of Present Illness INITIAL COMMENTS - FREE TEXT/NARRATIVE: History of present illness: [] Has a toothache. Is been going on since the fourth of this month. She was seen on the ninth of this month after an ER visit and the dentist told her that they would get her teeth removed in the middle of next month. She has unbearable pain now without fever chills or signs of infection. Cold fluids and air bother the tooth. Review of systems: As per history of present illness and below otherwise all systems reviewed and negative. Past medical history: As per history of present illness and as reviewed below otherwise noncontributory. Surgical history: As per history of present illness and as reviewed below otherwise noncontributory. Social history: No reported history of drug or alcohol abuse. Family history: As per history of present illness and as reviewed below otherwise noncontributory. Physical exam: Constitutional - well developed, well-nourished and in no acute distress HEENT -tooth #16 is carious and broken. Normocephalic, no evidence of trauma - external nose and mouth normal - no mass in neck and no JVD - mucosae moist EYES - full EOM, PERRL, no icterus - no evidence of inflammation, injection, or drainage Respiratory - no respiratory distress, equal bilateral expansion, Musculoskeletal no gross deformity of long bones or joints - no tenderness, swelling or edema Neurologic - Alert and oriented times four - CN II-XII grossly intact - motor sensory and coordination symmetrically normal Psychiatric - appropriate mood and affect with normal thought content Hematologic - No petechiae or purpura - mucosa appropriate color and sclera not pale - normal nail bed color and refill Integument - no rash or evidence of trauma - normal turgor Diagnostics: [] Therapeutics: [] Impression: [] Plan: [] Definitive disposition and diagnosis as appropriate pending reevaluation and review of above. Right tooth Pain Score (Numeric/FACES): 10 - Related Data Allergies Allergy/AdvReac Type Severity Reaction Status Date / Time No Known Allergies Allergy Verified 06/03/20 21:44 Home Meds: Home Meds Acetaminophen/HYDROcodone [[place] 325-5 MG] 1 tab PO Q4H PRN #14 tablet 06/03/20 [Rx] Past Medical History - Past Health History Medical/Surgical History: Denies Medical/Surgical History HEENT History: Reports: None Cardiovascular History: Reports: None Respiratory History: Reports: None Gastrointestinal History: Reports: None Genitourinary History: Reports: None EMERGENCY DISPATCHER History: Reports: Ectopic , , Other (See Below) Other EMERGENCY DISPATCHER History: Premature deliveries x 4; ; Ectopic DNC in 03/2020 Musculoskeletal History: Reports: None Neurological History: Reports: Concussion Psychiatric History: Reports: None Endocrine/Metabolic History: Reports: None Insulin Pump Model and Coal Trammer: None Hematologic History: Reports: Anemia Other Hematologic History: iron transfusion Immunologic History: Reports: None Oncologic (Cancer) History: Reports: None Dermatologic History: Reports: None - Infectious Disease History Infectious Disease History: Reports: None, Other (See Below) Other Infectious Disease History: Chlamydia - Past Surgical History Head Surgeries/Procedures: Reports: None HEENT Surgical History: Reports: None Cardiovascular Surgical History: Reports: None Respiratory Surgical History: Reports: None GI Surgical History: Reports: None Female Surgical History: Reports: Section, Other (See Below) Other Female Surgeries/Procedures: fernandez hole surgery Endocrine Surgical History: Reports: None Neurological Surgical History: Reports: None Musculoskeletal Surgical History: Reports: None Oncologic Surgical History: Reports: None Dermatological Surgical History: Reports: None Social & Family History - Family History Family Medical History: No Pertinent Family History Cardiac: Reports: Hypertension OBGYN: Reports: - Caffeine Use Caffeine Use: Reports: None - Recreational Drug Use Recreational Drug Use: No ED ROS GENERAL - Review of Systems Review Of Systems: Comprehensive ROS is negative, except as noted in HPI. ED EXAM, GENERAL - Physical Exam Exam: See Below Free Text/Narrative:: My physical exam is in the HPI Course - Vital Signs Last Recorded V/S: Last Vital Signs Temp 36.3 C 06/03/20 21:40 Pulse 64 06/03/20 21:40 Resp 16 06/03/20 21:40 BP 137/82 06/03/20 21:40 Pulse Ox 100 06/03/20 21:40 - Orders/Labs/Meds Meds: Medications Discontinued Medications Generic Name Dose Route Start Last Admin Trade Name Freq PRN Reason Stop Dose Admin Hydrocodone Bitart/Acetaminophen 1 tab 11/26/20 21:58 [place] 325-5 Mg PO 06/03/20 21:59 ONETIME ONE Departure - Departure Time of Disposition: 22:01 Disposition: Home, Self-Care 01 Condition: Good Clinical Impression: Caries, Dentalgia - Discharge Information Prescriptions: Acetaminophen/HYDROcodone [[place] 325-5 MG] 1 tab PO Q4H PRN #14 tablet PRN Reason: Pain (Moderate 4-6) Instructions: Dental Extraction, [id number] Referrals: Justine Ruiz PARALEGAL SPECIALIST [Primary Care Provider] - Additional Instructions: [facility] [address] [place] [id number] [id number] The following information is given to patients seen in the emergency department who are being discharged to home. This information is to outline your options for follow-up care. We provide all patients seen in our emergency department with a follow-up referral. The need for follow-up, as well as the timing and circumstances, are variable depending upon the specifics of your emergency department visit. If you don't have a primary care physician on staff, we will provide you with a referral. We always advise you to contact your personal physician following an emergency department visit to inform them of the circumstance of the visit and for follow-up with them and/or the need for any referrals to a consulting specialist. The emergency department will also refer you to a specialist when appropriate. This referral assures that you have the opportunity for follow-up care with a specialist. All of these measure are taken in an effort to provide you with optimal care, which includes your follow-up. Under all circumstances we always encourage you to contact your private physician who remains a resource for coordinating your care. When calling for f ollow-up care, please make the office aware that this follow-up is from your recent emergency room visit. If for any reason you are refused follow-up, please contact the [facility] Emergency Department at and asked to speak to the emergency department charge nurse. Sepsis Event Note (ED) - Evaluation Sepsis Screening Result: No Definite Risk - Focused Exam Vital Signs: Vital Signs Temp Pulse Resp BP Pulse Ox 06/03/20 21:40 36.3 C 64 16 137/82 100
== END 2020-06-03 22:20 | disposition home or self-care (01) ==
LOC: MW.ED 21:34
DX: K02.9 Dental caries, unspecified (principal)
CPT/HCPCS: 99282; A9270; 99283

== ENCOUNTER 2020-07-23 10:34 | Emergency (ER) | payer MEDICAID ==
--- NOTE | 2020-07-23 10:55 | EDM.PDOC ---
ED HPI GENERAL MEDICAL PROBLEM - General Chief Complaint: Lower Extremity Injury/Pain Stated Complaint: LT ANKLE PAIN Time Seen by Provider: 07/23/20 10:38 Source of Information: Reports: Patient History Limitations: Reports: No Limitations - History of Present Illness INITIAL COMMENTS - FREE TEXT/NARRATIVE: 25-year-old female presents with left ankle pain after slipping on ice yesterday. Pain is localized to the left ankle, sharp, moderate, nonradiating, constant, exacerbated with weightbearing and ambulation, no alleviating factors. ROS: A 10-point review of systems, other than pertinent positives and negatives as stated per HPI, is otherwise negative Past medical history: No additional pertinent history Past Surgical history: No additional pertinent history Social history: No additional pertinent history Family history: No additional pertinent history PHYSICAL EXAM General: AOx4, GCS = 15, No distress HEENT: dry mucous membrane Neck: supple, no meningismus, no Kernig or Brudzinski Cardiac: S1S2 RRR Respiratory: CTAB, no crackles or rales, no wheezing Abdomen: Soft, nontender, no rebound or guarding, nondistended, no pulsatile mass. Back: nontender Musculoskeletal: NVI distally, bilateral malleolus left ankle tender, no tenderness to proximal fibula or midfoot navicular bone or fifth MT. Neuro: No focal deficits L ankle Pain Score (Numeric/FACES): 9 - Related Data Allergies Allergy/AdvReac Type Severity Reaction Status Date / Time No Known Allergies Allergy Verified 07/23/20 10:42 Home Meds: Home Meds . [No Known Home Meds] 07/23/20 [History] Past Medical History - Past Health History Medical/Surgical History: Denies Medical/Surgical History HEENT History: Reports: None Cardiovascular History: Reports: None Respiratory History: Reports: None Gastrointestinal History: Reports: None Genitourinary History: Reports: None GRAIN OILSEED OR PASTURE GROWER History: Reports: Ectopic , , Other (See Below) Other GRAIN OILSEED OR PASTURE GROWER History: Premature deliveries x 4; ; Ectopic DNC in 03/2020 Musculoskeletal History: Reports: None Neurological History: Reports: Concussion Psychiatric History: Reports: None Endocrine/Metabolic History: Reports: None Insulin Pump Model and Feed Adviser: None Hematologic History: Reports: Anemia Other Hematologic History: iron transfusion Immunologic History: Reports: None Oncologic (Cancer) History: Reports: None Dermatologic History: Reports: None - Infectious Disease History Infectious Disease History: Reports: None, Other (See Below) Other Infectious Disease History: Chlamydia - Past Surgical History Head Surgeries/Procedures: Reports: None HEENT Surgical History: Reports: None Cardiovascular Surgical History: Reports: None Respiratory Surgical History: Reports: None GI Surgical History: Reports: None Female Surgical History: Reports: Section, Other (See Below) Other Female Surgeries/Procedures: fernandez hole surgery Endocrine Surgical History: Reports: None Neurological Surgical History: Reports: None Musculoskeletal Surgical History: Reports: None Oncologic Surgical History: Reports: None Dermatological Surgical History: Reports: None Social & Family History - Family History Family Medical History: No Pertinent Family History Cardiac: Reports: Hypertension OBGYN: Reports: - Caffeine Use Caffeine Use: Reports: None - Recreational Drug Use Recreational Drug Use: No Review of Systems - Review of Systems Review Of Systems: See Below (see dictation) ED EXAM, GENERAL - Physical Exam Exam: See Below (see dictation) ED TRAUMA EXTREMITY PROCEDURES - Splinting Left Lower Extremity Pre-Procedure NV Status: Normal Post-Procedure NV Status: Normal Splint Material: Air Splint Splint Design: Stirrup Applied & Form Fitted By: Provider Provider Post-Splint Application NV Check: NV Status Normal, Good Position Complications: No Complication Description: Splint: air stirrup. Indication: left ankle sprain. How will this benefit patient: immobilization. Duration: 7 days Course - Vital Signs Last Recorded V/S: Last Vital Signs Temp 97.0 F 07/23/20 10:42 Pulse 67 07/23/20 10:42 Resp 16 07/23/20 10:42 BP 139/84 07/23/20 10:42 Pulse Ox 100 07/23/20 10:42 - Orders/Labs/Meds Orders: Active Orders 24 hr Category Date Time Status DME for Discharge [COMM] Stat Oth 07/23/20 10:55 Ordered Meds: Medications Discontinued Medications Generic Name Dose Route Start Last Admin Trade Name Freq PRN Reason Stop Dose Admin Naproxen 500 mg 07/23/20 10:57 07/23/20 11:01 Naprosyn PO 07/23/20 10:58 500 mg ONETIME ONE Administration - Re-Assessments/Exams Free Text/Narrative Re-Assessment/Exam: 07/23/20 1314 After splinting in the ER, the patient improved and is currently stable for discharge. I performed a repeat exam and did not appreciate new abnormal findings. Patient exhibits normal vital signs and waiting with crutches. I advised the patient to return to the ER for reevaluation if symptoms worsened, including fever, worsening pain, or any other worrisome symptoms. I instructed the patient to follow up with their PCP within 3 - 5 days. MEDICAL DECISION MAKING: I reviewed the patients past medical records, lab and radiographic findings. I discussed the case with the patient. My differential diagnosis included: Ankle sprain. X-ray did not demonstrate any fractures or dislocation. Patient was splinted and NVI distally. Her LLE extremity demonstrated good distal perfusion, warm, pink, cap refill <2 seconds, compartments soft, pulses equal in both extremities. Patient understands to return immediately for worsening pain, swelling, fever, numbness/tingling or other concerns and to f/u with PMD if no improvement of symptoms within 3-5 days. Departure - Departure Time of Disposition: 13:14 Disposition: Home, Self-Care 01 Condition: Good Clinical Impression: Left ankle sprain - Discharge Information *PRESCRIPTION DRUG MONITORING PROGRAM REVIEWED*: Not Applicable *COPY OF PRESCRIPTION DRUG MONITORING REPORT IN PATIENT GAYLE: Not Applicable Instructions: Crutch Use, Adult, [id number], How to Use a Stirrup Ankle Brace, [id number], How to Use Cold Therapy, [id number], Ankle Sprain, [id number] Referrals: Justine Ruiz LIFE SCIENCES INSTRUCTOR [Primary Care Provider] - 3 Days Forms: ED Department Discharge Additional Instructions: The need for follow-up, as well as the timing and circumstances, are variable depending upon the specifics of your emergency department visit. If you don't have a primary care physician on staff, we will provide you with a referral. We always advise you to contact your personal physician following an emergency department visit to inform them of the circumstance of the visit and for follow-up with them and/or the need for any referrals to a consulting spec ialist. The emergency department will also refer you to a specialist when appropriate. This referral assures that you have the opportunity for follow-up care with a specialist. All of these measure are taken in an effort to provide you with optimal care, which includes your follow-up. Under all circumstances we always encourage you to contact your private physician who remains a resource for coordinating your care. When calling for follow-up care, please make the office aware that this follow-up is from your recent emergency room visit. If for any reason you are refused follow-up, please contact the [facility] Emergency Department at and asked to speak to the emergency department charge nurse. If you do not have a primary care doctor, please follow up with the clinics below within 3-5 days. [facility] - [facility] [address] [place] [address] [facility] [address] [place] [id number] Sepsis Event Note (ED) - Evaluation Sepsis Screening Result: No Definite Risk - Focused Exam Vital Signs: Vital Signs Temp Pulse Resp BP Pulse Ox 07/23/20 10:42 97.0 F 67 16 139/84 100 - My Orders Last 24 Hours: My Active Orders 07/23/20 10:55 DME for Discharge [COMM] Stat - Assessment/Plan Last 24 Hours: My Active Orders 07/23/20 10:55 DME for Discharge [COMM] Stat
[2020-07-23] MEDS ORDERED: Naproxen 500 MG Tab PO ONE (10:57)
--- NOTE | 2020-07-23 13:00 | CR ---
Indication: Injury and pain Technique: Left ankle 3 views. Comparison: None Findings: Bones: Alignment is normal. No fractures or bone lesions. Joint spaces: Unremarkable. Soft tissues: Unremarkable. Impression: No sign of acute injury. Dictated by Escobar Portillo MD @ Jul 23 2020 12:55PM Signed by Dr. Escobar Portillo @ Jul 23 2020 12:59PM
== END 2020-07-23 13:40 | disposition home or self-care (01) ==
LOC: MW.ED 10:34
DX: S93.402A Sprain of unspecified ligament of left ankle, initial encounter (principal); W00.0XXA Fall on same level due to ice and snow, initial encounter
CPT/HCPCS: 73610; 99283; A9270; 99282

== ENCOUNTER 2020-08-18 15:07 | Emergency (ER) | payer MEDICAID ==
--- NOTE | 2020-08-18 15:55 | EDM.PDOC ---
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 She states she has had an ectopic in the past and that the pain felt similar. She took a test yesterday but the result was "blurry" and she was unable to tell if it was positive or negative. LMP 07/22/2020, "normal". She has had some nausea associated with the abdominal pain. States she is currently comfortable and symptoms are very mild. Concerned she may be today. Patient denies any fever, chills, headache, change in vision, syncope or near syncope. Denies any chest pain, back pain, shortness of breath or cough. Denies any nausea, vomiting, diarrhea, constipation or dysuria. Has not noted any blood in urine or stool. No vaginal bleeding or discharge (no concern for STIs.) Patient has been eating and drinking appropriately. Review of systems: As per history of present illness and below otherwise all systems reviewed and negative. Past medical history: As per history of present illness and as reviewed below otherwise noncontributory. Surgical history: As per history of present illness and as reviewed below otherwise noncontributory. Social history: See social history for further information Family history: As per history of present illness and as reviewed below otherwise noncontributory. Physical exam: General: Well developed and well nourished 25 year old black female. Alert and orientated x 3. Nontoxic in appearance and in no acute distress. Vital signs are stable and have been reviewed by me. Nursing notes were reviewed. HEENT: Atraumatic, normocephalic, pupils equal and reactive bilaterally, negative for conjunctival pallor or scleral icterus, mucous membranes moist, TMs normal bilaterally, throat clear, neck supple, nontender, trachea midline. No drooling or trismus noted. No meningeal signs. No hot potato voice noted. Lungs: Clear to auscultation bilaterally. No wheezes, rales, or rhonchi. Chest nontender. Normal work of breathing, no accessory muscles used. Heart: S1S2, regular rate and rhythm without overt murmur, gallops, or rubs. No JVD. No peripheral edema Abdomen: Soft, nondistended, mild RLQ tenderness without rebound tenderness. Normoactive bowel sounds. Negative for masses or costovertebral tenderness. Skin: Intact, warm, dry. No lesions or rashes noted. Hematologic: No petechiae or purpra. Mucosa appropriate color and normal nail bed color and refill. Extremities: Atraumatic, moves all extremities per self without difficulty or deficits, negative for cords or calf pain. Neurovascular unremarkable. Neuro: Awake, alert, oriented. Cranial nerves II through XII unremarkable. Cerebellum unremarkable. Motor and sensory unremarkable throughout. Exam nonfocal. Psychiatric: Mood and affect are appropriate. Normal thought process. Answering questions appropriately. Notes: *This patient was seen and evaluated during the 2019 SARS-CoV-2 novel coronavirus pandemic period. Community viral transmission is ongoing at time of this encounter and the emergency department is operating under pandemic response procedures. Patient declines wanting any l medication for her pain or nausea. She is agreeable to labs. Mentions her main concern is about . Lab work is unremarkable. I have talked with the patient about today's findings, in addition to providing specific details for plan of care. Reassessment at the time of disposition demonstrates that the patient is in no acute distress. The patient is stable for discharge, counseling was provided and we discussed in great detail signs and symptoms that would prompt them to return to the Emergency Department. Medication, follow up and supportive care measures were reviewed and discussed. Voices understanding and is agreeable to plan of care. Denies any further questions or concerns at this time. Diagnostics: CBC, CMP, UA, HCG Therapeutics: None Prescription: None Impression: Abdominal Pain Plan: 1. Your lab work is normal. Negative test. If your symptoms should worsen, new symptoms develop or any of the signs and symptoms we discussed should arise please return to the emergency room or call 911 (if needed). 2. You can alternate Tylenol and ibuprofen as needed for pain and fever management. 3. We encourage you to follow up with your primary care provider and/or recommended specialist in the next few days for re-evaluation and further care/management. Definitive disposition and diagnosis as appropriate pending reevaluation and review of above. Right Lower Abdomen Pain Score (Numeric/FACES): 4 - Related Data Allergies Allergy/AdvReac Type Severity Reaction Status Date / Time No Known Allergies Allergy Verified 08/18/20 15:37 Home Meds: Home Meds . [No Known Home Meds] 07/23/20 [History] Past Medical History - Past Health History Medical/Surgical History: Denies Medical/Surgical History HEENT History: Reports: None Cardiovascular History: Reports: None Respiratory History: Reports: None Gastrointestinal History: Reports: None Genitourinary History: Reports: None LITERACY SPECIALIST History: Reports: Ectopic , , Other (See Below) Other LITERACY SPECIALIST History: Premature deliveries x 4; ; Ectopic DNC in 03/2020 Musculoskeletal History: Reports: None Neurological History: Reports: Concussion Psychiatric History: Reports: None Endocrine/Metabolic History: Reports: None Insulin Pump Model and Pipe Installer: None Hematologic History: Reports: Anemia Other Hematologic History: iron transfusion Immunologic History: Reports: None Oncologic (Cancer) History: Reports: None Dermatologic History: Reports: None - Infectious Disease History Infectious Disease History: Reports: None, Other (See Below) Other Infectious Disease History: Chlamydia - Past Surgical History Head Surgeries/Procedures: Reports: None HEENT Surgical History: Reports: None Cardiovascular Surgical History: Reports: None Respiratory Surgical History: Reports: None GI Surgical History: Reports: None Female Surgical History: Reports: Section, Other (See Below) Other Female Surgeries/Procedures: fernandez hole surgery Endocrine Surgical History: Reports: None Neurological Surgical History: Reports: None Musculoskeletal Surgical History: Reports: None Oncologic Surgical History: Reports: None Dermatological Surgical History: Reports: None Social & Family History - Family History Family Medical History: No Pertinent Family History Cardiac: Reports: Hypertension OBGYN: Reports: - Tobacco Use Tobacco Use Status *Q: Never Tobacco User - Caffeine Use Caffeine Use: Reports: None - Recreational Drug Use Recreational Drug Use: No ED ROS GENERAL - Review of Systems Review Of Systems: Comprehensive ROS is negative, except as noted in HPI. ED EXAM, GI/ABD - Physical Exam Exam: See Below (See dictation) Course - Vital Signs Last Recorded V/S: Last Vital Signs Temp 97.4 F 08/18/20 15:37 Pulse 61 08/18/20 15:37 Resp 16 08/18/20 15:37 BP 126/84 08/18/20 15:37 Pulse Ox 99 08/18/20 15:37 - Orders/Labs/Meds Labs: Laboratory Tests 08/18/20 08/18/20 08/18/20 Range/Units 16:01 16:01 16:19 WBC 6.54 (4.0-11.0) K/uL RBC 4.42 (4.30-5.90) M/uL Hgb 10.9 L (12.0-16.0) g/dL Hct 35.3 L (36.0-46.0) % MCV 79.9 L (80.0-98.0) fL MCH 24.7 L (27.0-32.0) pg MCHC 30.9 L (31.0-37.0) g/dL RDW Std Deviation 44.2 (28.0-62.0) fl RDW Coeff of Alessandra 15 (11.0-15.0) % Plt Count 351 (150-400) K/uL MPV 9.40 (7.40-12.00) fL Neut % (Auto) 54.6 (48.0-80.0) % Lymph % (Auto) 30.3 (16.0-40.0) % Blount % (Auto) 5.0 (0.0-15.0) % Eos % (Auto) 9.3 H (0.0-7.0) % Baso % (Auto) 0.8 (0.0-1.5) % Neut # (Auto) 3.6 (1.4-5.7) K/uL Lymph # (Auto) 2.0 (0.6-2.4) K/uL Blount # (Auto) 0.3 (0.0-0.8) K/uL Eos # (Auto) 0.6 (0.0-0.7) K/uL Baso # (Auto) 0.1 (0.0-0.1) K/uL Nucleated RBC % 0.0 /100WBC Nucleated RBCs # 0 K/uL Sodium 138 (136-145) mmol/L Potassium 4.0 (3.5-5.1) mmol/L Chloride 104 (98-107) mmol/L Carbon Dioxide 25.2 (21.0-32.0) mmol/L BUN 11 (7.0-18.0) mg/dL Creatinine 1.0 (0.6-1.0) mg/dL Est Cr Clr Drug Dosing 70.52 mL/min Estimated GFR (MDRD) > 60.0 ml/min Glucose 102 (74-106) mg/dL Calcium 9.2 (8.5-10.1) mg/dL Total Bilirubin 0.3 (0.2-1.0) mg/dL AST 44 H (15-37) IU/L ALT 55 (14-63) IU/L Alkaline Phosphatase 122 H (46-116) U/L Total Protein 8.2 (6.4-8.2) g/dL Albumin 4.1 (3.4-5.0) g/dL Globulin 4.1 H (2.6-4.0) g/dL Albumin/Globulin Ratio 1.0 (0.9-1.6) HCG, Qual (NEG) Urine Color YELLOW Urine Appearance CLEAR Urine pH 6.0 (5.0-8.0) Ur Specific [place] >= 1.030 (1.001-1.035) Urine Protein NEGATIVE (NEGATIVE) mg/dL Urine Glucose (UA) NEGATIVE (NEGATIVE) mg/dL Urine Ketones NEGATIVE (NEGATIVE) mg/dL Urine Occult Blood NEGATIVE (NEGATIVE) Urine Nitrite NEGATIVE (NEGATIVE) Urine Bilirubin NEGATIVE (NEGATIVE) Urine Urobilinogen 0.2 (<2.0) EU/dL Ur Leukocyte Esterase NEGATIVE (NEGATIVE) 08/18/20 Range/Units 16:19 WBC (4.0-11.0) K/uL RBC (4.30-5.90) M/uL Hgb (12.0-16.0) g/dL Hct (36.0-46.0) % MCV (80.0-98.0) fL MCH (27.0-32.0) pg MCHC (31.0-37.0) g/dL RDW Std Deviation (28.0-62.0) fl RDW Coeff of Alessandra (11.0-15.0) % Plt Count (150-400) K/uL MPV (7.40-12.00) fL Neut % (Auto) (48.0-80.0) % Lymph % (Auto) (16.0-40.0) % Blount % (Auto) (0.0-15.0) % Eos % (Auto) (0.0-7.0) % Baso % (Auto) (0.0-1.5) % Neut # (Auto) (1.4-5.7) K/uL Lymph # (Auto) (0.6-2.4) K/uL Blount # (Auto) (0.0-0.8) K/uL Eos # (Auto) (0.0-0.7) K/uL Baso # (Auto) (0.0-0.1) K/uL Nucleated RBC % /100WBC Nucleated RBCs # K/uL Sodium (136-145) mmol/L Potassium (3.5-5.1) mmol/L Chloride (98-107) mmol/L Carbon Dioxide (21.0-32.0) mmol/L BUN (7.0-18.0) mg/dL Creatinine (0.6-1.0) mg/dL Est Cr Clr Drug Dosing mL/min Estimated GFR (MDRD) ml/min Glucose (74-106) mg/dL Calcium (8.5-10.1) mg/dL Total Bilirubin (0.2-1.0) mg/dL AST (15-37) IU/L ALT (14-63) IU/L Alkaline Phosphatase (46-116) U/L Total Protein (6.4-8.2) g/dL Albumin (3.4-5.0) g/dL Globulin (2.6-4.0) g/dL Albumin/Globulin Ratio (0.9-1.6) HCG, Qual NEGATIVE (NEG) Urine Color Urine Appearance Urine pH (5.0-8.0) Ur Specific [place] (1.001-1.035) Urine Protein (NEGATIVE) mg/dL Urine Glucose (UA) (NEGATIVE) mg/dL Urine Ketones (NEGATIVE) mg/dL Urine Occult Blood (NEGATIVE) Urine Nitrite (NEGATIVE) Urine Bilirubin (NEGATIVE) Urine Urobilinogen (<2.0) EU/dL Ur Leukocyte Esterase (NEGATIVE) Departure - Departure Time of Disposition: 16:46 Disposition: Home, Self-Care 01 Clinical Impression: Abdominal pain Qualifiers: Abdominal location: right lower quadrant Qualified Code(s): R10.31 - Right lower quadrant pain - Discharge Information Instructions: Abdominal Pain, Adult, [id number] Referrals: Ryan Okeefe MD [Primary Care Provider] - Forms: ED Department Discharge Additional Instructions: The following information is given to patients seen in the emergency department who are being discharged to home. This information is to outline your options for follow-up care. We provide all patients seen in our emergency department with a follow-up referral. The need for follow-up, as well as the timing and circumstances, are variable depending upon the specifics of your emergency department visit. If you don't have a primary care physician on staff, we will provide you with a referral. We always advise you to contact your personal physician following an e mergency department visit to inform them of the circumstance of the visit and for follow-up with them and/or the need for any referrals to a consulting specialist. The emergency department will also refer you to a specialist when appropriate. This referral assures that you have the opportunity for follow-up care with a specialist. All of these measure are taken in an effort to provide you with op timal care, which includes your follow-up. Under all circumstances we always encourage you to contact your private physician who remains a resource for coordinating your care. When calling for follow-up care, please make the office aware that this follow-up is from your recent emergency room visit. If for any reason you are refused follow-up, please contact the [facility] Emergency Department at and asked to speak to the emergency department charge nurse. [facility] [address] [place] [address] [place] [address] Thank you for choosing the [facility] emergency department in [place] for your medical needs today. It was a pleasure caring for you. Today you were seen in the emergency department for abdominal pain. 1. Your lab work is normal. Negative test. If your symptoms should worsen, new symptoms develop or any of the signs and symptoms we discussed should arise please return to the emergency room or call 911 (if needed). 2. You can alternate Tylenol and ibuprofen as needed for pain and fever management. 3. We encourage you to follow up with your primary care provider and/or recomm ended specialist in the next few days for re-evaluation and further care/management. Sepsis Event Note (ED) - Evaluation Sepsis Screening Result: No Definite Risk - Focused Exam Vital Signs: Vital Signs Temp Pulse Resp BP Pulse Ox 08/18/20 15:37 97.4 F 61 16 126/84 99
[2020-08-18 16:36] LABS: BLOOD UREA NITROGEN,BUN 11 mg/dL (7.0-18.0); CARBON DIOXIDE,CO2 25.2 mmol/L (21.0-32.0); CHLORIDE,CL 104 mmol/L (98-107); GLUCOSE RANDOM 102 mg/dL (74-106); SODIUM,NA 138 mmol/L (136-145)
== END 2020-08-18 16:57 | disposition home or self-care (01) ==
LOC: MW.ED 15:07
DX: R10.31 Right lower quadrant pain (principal); R11.0 Nausea
CPT/HCPCS: 36415; 80053; 81003; 84703; 85025; 99283; 99284

== ENCOUNTER 2020-11-15 19:28 | Emergency (ER) | payer MEDICAID ==
[2020-11-15] MEDS ORDERED: Sodium Chloride 0.9% 1,000 ML IV ONE (19:54)
--- NOTE | 2020-11-15 19:59 | EDM.PDOC ---
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 Uterus did not have any mass. The hCG is so low that it is unlikely that we would be able to visualize at this point. Treatment for UTI given ectopic warnings given patient discharged in satisfactory condition. Departure - Departure Time of Disposition: 22:58 Disposition: Home, Self-Care 01 Condition: Good Clinical Impression: Positive test, Ovarian cyst Abdominal pain in Qualifiers: Trimester: first trimester Qualified Code(s): O26.891 - Other specified related conditions, first trimester UTI (urinary tract infection) Qualifiers: Urinary tract infection type: site unspecified Hematuria presence: without hematuria Qualified Code(s): N39.0 - Urinary tract infection, site not specified - Discharge Information Prescriptions: cephALEXin [Keflex] 500 mg PO BID 10 Days #20 cap Instructions: Urinary Tract Infection, Adult, [id number], Ovarian Cyst, [id number] Referrals: PCP,None [Primary Care Provider] - Forms: ED Department Discharge Additional Instructions: The following information is given to patients seen in the emergency department who are being discharged to home. This information is to outline your options for follow-up care. We provide all patients seen in our emergency department with a follow-up referral. The need for follow-up, as well as the timing and circumstances, are variable depending upon the specifics of your emergency department visit. If you don't have a primary care physician on staff, we will provide you with a referral. We always advise you to contact your personal physician following an emergency department visit to inform them of the circumstance of the visit and for follow-up with them and/or the need for any referrals to a consulting specialist. The emergency department will also refer you to a specialist when appropriate. This referral assures that you have the opportunity for follow-up care with a specialist. All of these measure are taken in an effort to provide you with optimal care, which includes your follow-up. Under all circumstances we always encourage you to contact your private physic sobeida who remains a resource for coordinating your care. When calling for follow- up care, please make the office aware that this follow-up is from your recent emergency room visit. If for any reason you are refused follow-up, please contact the [facility] Emergency Department at and asked to speak to the emergency department charge nurse. [facility] [address] [place] [address] [address] Thank you for choosing the [facility] emergency department in [place] for your medical needs today. It was a pleasure caring for you. Today you were seen in the emergency department for abdominal pain in . 1. Please start and/or continue to take your vitamin with folic acid once daily. 2. Small frequent sips of fluids to prevent dehydration. Zofran as needed for nausea management. 3. Tylenol as needed for pain management. 4. Follow up with your PATROL MAN in the next 1-2 days. If your symptoms should worsen, new symptoms develop or any of the signs and symptoms we discussed should arise please return to the emergency room or call 911 (if needed). <Lexa Lennon E - Last Filed: 11/19/20 10:11> ED HPI GENERAL MEDICAL PROBLEM - General Source of Information: Reports: Patient History Limitations: Reports: No Limitations - History of Present Illness INITIAL COMMENTS - FREE TEXT/NARRATIVE: HISTORY AND PHYSICAL: History of present illness: Patient is a 25-year-old female who presents to the emergency room with complaints of right lower quadrant pain and dysuria x3 days. She states this morning she took a test which was positive. She is 7, para 5 with an ectopic . Patient denies any fever, chills, headache, change in vision, syncope or near syncope. Denies any chest pain, back pain, shortness of breath or cough. Denies any nausea, vomiting, diarrhea, constipation or blood in urine or stool. Denies any vaginal bleeding or discharge. No concern for STDs. Patient has been eating and drinking appropriately. Review of systems: As per history of present illness and below otherwise all systems reviewed and negative. Past medical history: As per history of present illness and as reviewed below otherwise noncontributory. Surgical history: As per history of present illness and as reviewed below otherwise noncontributory. Social history: See social history for further information Family history: As per history of present illness and as reviewed below otherwise noncontributory. Physical exam: General: Well developed and well nourished 25-year-old black female. Alert and orientated x 3. Nontoxic in appearance and in no acute distress. Vital signs are stable and have been reviewed by me. Nursing notes were reviewed. HEENT: Atraumatic, normocephalic, pupils equal and reactive bilaterally, negative for conjunctival pallor or scleral icterus, mucous membranes moist, TMs normal bilaterally, throat clear, neck supple, nontender, trachea midline. No drooling or trismus noted. No meningeal signs. No hot potato voice noted. Lungs: Clear to auscultation bilaterally. No wheezes, rales, or rhonchi. Chest nontender. Normal work of breathing, no accessory muscles used. Heart: S1S2, regular rate and rhythm without overt murmur, gallops, or rubs. No JVD. No peripheral edema Abdomen: Soft, nondistended, mild RLQ tenderness. Normoactive bowel sounds. Negative for masses or costovertebral tenderness. Skin: Intact, warm, dry. No lesions or rashes noted. Hematologic: No petechiae or purpra. Mucosa appropriate color and normal nail bed color and refill. Extremities: Atraumatic, moves all extremities per self without difficulty or deficits, negative for cords or calf pain. Neurovascular unremarkable. Neuro: Awake, alert, oriented. Cranial nerves II through XII unremarkable. Cereb ellum unremarkable. Motor and sensory unremarkable throughout. Exam nonfocal. Psychiatric: Mood and affect are appropriate. Normal thought process. Answering questions appropriately. Notes: *This patient was seen and evaluated during the 2019 SARS-CoV-2 novel coronavirus pandemic period. Community viral transmission is ongoing at time of this encounter and the emergency department is operating under pandemic response procedures. Lab work shows patient is and has a UTI. We will proceed with an ultrasound to confirm IUP. Although her quant HCG is low at 71, she will likley need to follow up with serial HCG to prove healthy viable . No concern for appendicitis at this time, no rebound tenderness. Dr Chacon will follow the Ultrasound. Diagnostics: CBC, CMP, UA, HCGU, Quant HCG, OB u/s Therapeutics: IV fluids Prescription: Zofran Impression: Abdominal pain in UTI Definitive disposition and diagnosis as appropriate pending reevaluation and review of above. abdomen Pain Score (Numeric/FACES): 8 Past Medical History - Past Health History Medical/Surgical History: Denies Medical/Surgical History HEENT History: Reports: None Cardiovascular History: Reports: None Respiratory History: Reports: None Gastrointestinal History: Reports: None Genitourinary History: Reports: None PATROL MAN History: Reports: Ectopic , , Other (See Below) Other PATROL MAN History: Premature deliveries x 4; ; Ectopic DNC in 03/2020 Musculoskeletal History: Reports: None Neurological History: Reports: Concussion Psychiatric History: Reports: None Endocrine/Metabolic History: Reports: None Insulin Pump Model and Coke Oven Patcher: None Hematologic History: Reports: Anemia Other Hematologic History: iron transfusion Immunologic History: Reports: None Oncologic (Cancer) History: Reports: None Dermatologic History: Reports: None - Infectious Disease History Infectious Disease History: Reports: None, Other (See Below) Other Infectious Disease History: Chlamydia - Past Surgical History Head Surgeries/Procedures: Reports: None HEENT Surgical History: Reports: None Cardiovascular Surgical History: Reports: None Respiratory Surgical History: Reports: None GI Surgical History: Reports: None Female Surgical History: Reports: Section, Other (See Below) Other Female Surgeries/Procedures: fernandez hole surgery Endocrine Surgical History: Reports: None Neurological Surgical History: Reports: None Musculoskeletal Surgical History: Reports: None Oncologic Surgical History: Reports: None Dermatological Surgical History: Reports: None Social & Family History - Family History Family Medical History: No Pertinent Family History Cardiac: Reports: Hypertension OBGYN: Reports: - Caffeine Use Caffeine Use: Reports: None ED ROS GENERAL - Review of Systems Review Of Systems: Comprehensive ROS is negative, except as noted in HPI. ED EXAM, GI/ABD - Physical Exam Exam: See Below (See dictation) Course - Vital Signs Last Recorded V/S: Last Vital Signs Temp 97.3 F 11/15/20 19:36 Pulse 59 L 11/15/20 23:00 Resp 16 11/15/20 23:00 BP 118/81 11/15/20 23:00 Pulse Ox 98 11/15/20 23:00 - Orders/Labs/Meds Labs: Laboratory Tests 11/15/20 11/15/20 11/15/20 Range/Units 20:20 20:20 20:23 WBC 9.13 (4.0-11.0) K/uL RBC 4.22 L (4.30-5.90) M/uL Hgb 10.8 L (12.0-16.0) g/dL Hct 33.3 L (36.0-46.0) % MCV 78.9 L (80.0-98.0) fL MCH 25.6 L (27.0-32.0) pg MCHC 32.4 (31.0-37.0) g/dL RDW Std Deviation 45.6 (28.0-62.0) fl RDW Coeff of Alessandra 16 H (11.0-15.0) % Plt Count 323 (150-400) K/uL MPV 9.40 (7.40-12.00) fL Neut % (Auto) 56.3 (48.0-80.0) % Lymph % (Auto) 32.9 (16.0-40.0) % Iron % (Auto) 5.6 (0.0-15.0) % Eos % (Auto) 4.7 (0.0-7.0) % Baso % (Auto) 0.5 (0.0-1.5) % Neut # (Auto) 5.1 (1.4-5.7) K/uL Lymph # (Auto) 3.0 H (0.6-2.4) K/uL Iron # (Auto) 0.5 (0.0-0.8) K/uL Eos # (Auto) 0.4 (0.0-0.7) K/uL Baso # (Auto) 0.1 (0.0-0.1) K/uL Nucleated RBC % 0.0 /100WBC Nucleated RBCs # 0 K/uL Sodium (136-145) mmol/L Potassium (3.5-5.1) mmol/L Chloride (98-107) mmol/L Carbon Dioxide (21.0-32.0) mmol/L BUN (7.0-18.0) mg/dL Creatinine (0.6-1.0) mg/dL Est Cr Clr Drug Dosing mL/min Estimated GFR (MDRD) ml/min Glucose (74-106) mg/dL Calcium (8.5-10.1) mg/dL Total Bilirubin (0.2-1.0) mg/dL AST (15-37) IU/L ALT (14-63) IU/L Alkaline Phosphatase (46-116) U/L Total Protein (6.4-8.2) g/dL Albumin (3.4-5.0) g/dL Globulin (2.6-4.0) g/dL Albumin/Globulin Ratio (0.9-1.6) HCG, Quant mIU/mL Urine Color YELLOW Urine Appearance SLT CLOUDY Urine pH 6.0 (5.0-8.0) Ur Specific [place] 1.025 (1.001-1.035) Urine Protein NEGATIVE (NEGATIVE) mg/dL Urine Glucose (UA) NEGATIVE (NEGATIVE) mg/dL Urine Ketones NEGATIVE (NEGATIVE) mg/dL Urine Occult Blood NEGATIVE (NEGATIVE) Urine Nitrite POSITIVE H (NEGATIVE) Urine Bilirubin NEGATIVE (NEGATIVE) Urine Urobilinogen 0.2 (<2.0) EU/dL Ur Leukocyte Esterase NEGATIVE (NEGATIVE) Urine RBC 0-2 (0-2/HPF) Urine WBC 0-2 (0-5/HPF) Ur Epithelial Cells FEW (NONE-FEW) Urine Bacteria 2+ H (NEGATIVE) Urine HCG, Qual POSITIVE (NEGATIVE) 11/15/20 11/15/20 Range/Units 20:23 20:23 WBC (4.0-11.0) K/uL RBC (4.30-5.90) M/uL Hgb (12.0-16.0) g/dL Hct (36.0-46.0) % MCV (80.0-98.0) fL MCH (27.0-32.0) pg MCHC (31.0-37.0) g/dL RDW Std Deviation (28.0-62.0) fl RDW Coeff of Alessandra (11.0-15.0) % Plt Count (150-400) K/uL MPV (7.40-12.00) fL Neut % (Auto) (48.0-80.0) % Lymph % (Auto) (16.0-40.0) % Iron % (Auto) (0.0-15.0) % Eos % (Auto) (0.0-7.0) % Baso % (Auto) (0.0-1.5) % Neut # (Auto) (1.4-5.7) K/uL Lymph # (Auto) (0.6-2.4) K/uL Iron # (Auto) (0.0-0.8) K/uL Eos # (Auto) (0.0-0.7) K/uL Baso # (Auto) (0.0-0.1) K/uL Nucleated RBC % /100WBC Nucleated RBCs # K/uL Sodium 139 (136-145) mmol/L Potassium 3.7 (3.5-5.1) mmol/L Chloride 105 (98-107) mmol/L Carbon Dioxide 23.0 (21.0-32.0) mmol/L BUN 11 (7.0-18.0) mg/dL Creatinine 1.2 H (0.6-1.0) mg/dL Est Cr Clr Drug Dosing 58.75 mL/min Estimated GFR (MDRD) > 60.0 ml/min Glucose 95 (74-106) mg/dL Calcium 8.4 L (8.5-10.1) mg/dL Total Bilirubin 0.1 L (0.2-1.0) mg/dL AST 22 (15-37) IU/L ALT 21 (14-63) IU/L Alkaline Phosphatase 113 (46-116) U/L Total Protein 7.5 (6.4-8.2) g/dL Albumin 3.7 (3.4-5.0) g/dL Globulin 3.8 (2.6-4.0) g/dL Albumin/Globulin Ratio 1.0 (0.9-1.6) HCG, Quant 71.0 mIU/mL Urine Color Urine Appearance Urine pH (5.0-8.0) Ur Specific [place] (1.001-1.035) Urine Protein (NEGATIVE) mg/dL Urine Glucose (UA) (NEGATIVE) mg/dL Urine Ketones (NEGATIVE) mg/dL Urine Occult Blood (NEGATIVE) Urine Nitrite (NEGATIVE) Urine Bilirubin (NEGATIVE) Urine Urobilinogen (<2.0) EU/dL Ur Leukocyte Esterase (NEGATIVE) Urine RBC (0-2/HPF) Urine WBC (0-5/HPF) Ur Epithelial Cells (NONE-FEW) Urine Bacteria (NEGATIVE) Urine HCG, Qual (NEGATIVE) Meds: Medications Discontinued Medications Generic Name Dose Route Start Last Admin Trade Name Freq PRN Reason Stop Dose Admin Cephalexin 500 mg 11/15/20 20:54 11/15/20 21:08 Cephalexin 500 Mg Cap PO 11/15/20 20:55 500 mg ONETIME ONE Administration Sodium Chloride 1,000 mls @ 999 mls/hr 11/15/20 19:54 11/15/20 20:21 Normal Saline IV 11/15/20 20:54 999 mls/hr STAT ONE Administration Sepsis Event Note (ED) - Evaluation Sepsis Screening Result: No Definite Risk
[2020-11-15 20:54] LABS: BLOOD UREA NITROGEN,BUN 11 mg/dL (7.0-18.0); CHLORIDE,CL 105 mmol/L (98-107); GLUCOSE RANDOM 95 mg/dL (74-106); POTASSIUM,K 3.7 mmol/L (3.5-5.1); SODIUM,NA 139 mmol/L (136-145)
[2020-11-15] MEDS ORDERED: Cephalexin 500 MG Cap PO ONE (20:54)
--- NOTE | 2020-11-15 22:50 | US ---
INDICATION: Right lower quadrant pain. Beta HCG 71. Previous history right ectopic with part of right fallopian tube removed in the past. COMPARISON: Report of the ultrasound of the pelvis from 03/01/2020. FINDINGS: Transvaginal ultrasound examination of the female pelvis was performed. The uterus is anteverted with no evidence of mass. It measures 9.7 x 4.7 x 4.4 cm. The endometrial lining is normal in thickness at 5 mm. The right ovary has a complex cyst with isoechoic material within it measuring 2.1 x 2.2 x 1.7 centimeters, probably a hemorrhagic cyst. The left ovary is normal in appearance. The ovaries are normal in size. The right ovary measures 3.8 x 3.2 x 3.4 centimeters. The left ovary measures 3.0 x 1.6 x 1.7 centimeters. There is normal color and pulse doppler flow in both ovaries. There is a mild amount of free fluid in the cul-de-sac, nonspecific. IMPRESSION: No sign of an intrauterine gestational sac. Differential diagnosis includes completed spontaneous , early intrauterine gestation, or ectopic gestation. Recommend correlation with serial quantitative beta hCGs. Follow-up ultrasound may be of benefit. Small amount of free fluid in the cul-de-sac, nonspecific. Hemorrhagic cyst in the right ovary measuring up to 2.2 centimeters in diameter. Dictated by Jerardo Husain MD @ 11/15/2020 10:48:[address] Jerardo Husain @ Nov 15 2020 10:48PM
== END 2020-11-15 23:17 | disposition home or self-care (01) ==
LOC: MW.ED 19:28
DX: O23.41 Unspecified infection of urinary tract in pregnancy, first trimester (principal); O34.81 Maternal care for other abnormalities of pelvic organs, first trimester; N83.201 Unspecified ovarian cyst, right side; Z3A.00 Weeks of gestation of pregnancy not specified
CPT/HCPCS: 36415; 76817; 80053; 81001; 81025; 84702; 85025; 87086; 99284; A9270; J7030

== ENCOUNTER 2020-11-17 19:40 | Emergency (ER) | payer MEDICAID ==
--- NOTE | 2020-11-17 20:31 | EDM.PDOC ---
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 She was seen here 2 days ago. At that time she had an IUP considered as the most likely cause of her hCG of 71. She had a urine that looks like it might have infection but the culture from the clean-catch specimen showed mixed bianka greater than 100,000 colonies. She continues to have symptoms. Incidentally she was seen yesterday and had an hCG that is slightly higher. That was at the [facility]. The patient has no systemic signs of illness, no fever and chills. No nausea and vomiting. Review of systems: As per history of present illness and below otherwise all systems reviewed and negative. Past medical history: As per history of present illness and as reviewed below otherwise noncontributory. Surgical history: As per history of present illness and as reviewed below otherwise noncontributory. Social history: No reported history of drug or alcohol abuse. Family history: As per history of present illness and as reviewed below otherwise noncontributory. Physical exam: Constitutional - well developed, well-nourished and in no acute distress HEENT - normocephalic, no evidence of trauma - external nose and mouth normal - no mass in neck and no JVD - mucosae moist EYES - full EOM, PERRL, no icterus - no evidence of inflammation, injection, or drainage Respiratory - no respiratory distress, equal bilateral expansion, lungs clear to auscultation and no abnormal lung sounds Cardiovascular - Regular Rhythm with S1 and S2 appreciated and no murmur, gallop or rub. GI -minimal fullness and pressure on palpation of the suprapubic area. Otherwise abdomen soft without distension or organomegaly - normal bowel sounds - no guard or rebound Musculoskeletal no gross deformity of long bones or joints - no tenderness, swelling or edema Neurologic - Alert and oriented times four - CN II-XII grossly intact - motor sensory and coordination symmetrically normal Psychiatric - appropriate mood and affect with normal thought content Hematologic - No petechiae or purpura - mucosa appropriate color and sclera not pale - normal nail bed color and refill Integument - no rash or evidence of trauma - normal turgor Diagnostics: [] Therapeutics: [] Impression: [] Plan: [] Definitive disposition and diagnosis as appropriate pending reevaluation and review of above. 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 , , Other (See Below) 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 History: Premature deliveries x 4; ; Ectopic DNC in 03/2020 Musculoskeletal History: Reports: None Neurological History: Reports: Concussion Psychiatric History: Reports: None Endocrine/Metabolic History: Reports: None Insulin Pump Model and Foreign Car Mechanic: None Hematologic History: Reports: Anemia Other Hematologic History: iron transfusion Immunologic History: Reports: None Oncologic (Cancer) History: Reports: None Dermatologic History: Reports: None - Infectious Disease History Infectious Disease History: Reports: Other (See Below) Other Infectious Disease History: Chlamydia - Past Surgical History Head Surgeries/Procedures: Reports: None HEENT Surgical History: Reports: None Cardiovascular Surgical History: Reports: None Respiratory Surgical History: Reports: None GI Surgical History: Reports: None Female Surgical History: Reports: Section, Other (See Below) Other Female Surgeries/Procedures: fernandez hole surgery Endocrine Surgical History: Reports: None Neurological Surgical History: Reports: None Musculoskeletal Surgical History: Reports: None Oncologic Surgical History: Reports: None Dermatological Surgical History: Reports: None Social & Family History - Family History Family Medical History: No Pertinent Family History Cardiac: Reports: Hypertension OBGYN: Reports: - Caffeine Use Caffeine Use: Reports: Coffee, Soda ED ROS GENERAL - Review of Systems Review Of Systems: Comprehensive ROS is negative, except as noted in HPI. ED EXAM, GENERAL - Physical Exam Exam: See Below Free Text/Narrative:: My physical exam is in the HPI Course - Vital Signs Last Recorded V/S: Last Vital Signs Temp 36.1 C 11/17/20 19:50 Pulse 74 11/17/20 19:50 Resp 18 11/17/20 19:50 BP 132/84 11/17/20 19:50 Pulse Ox 99 11/17/20 19:50 - Orders/Labs/Meds Orders: Active Orders 24 hr Category Date Time Status CULTURE URINE [RM] Stat Lab 11/17/20 20:30 Received Labs: Laboratory Tests 11/17/20 11/17/20 Range/Units 20:30 20:47 HCG, Quant 280.0 mIU/mL Urine Color YELLOW Urine Appearance CLEAR Urine pH 6.0 (5.0-8.0) Ur Specific [place] >= 1.030 (1.001-1.035) Urine Protein NEGATIVE (NEGATIVE) mg/dL Urine Glucose (UA) NEGATIVE (NEGATIVE) mg/dL Urine Ketones NEGATIVE (NEGATIVE) mg/dL Urine Occult Blood NEGATIVE (NEGATIVE) Urine Nitrite NEGATIVE (NEGATIVE) Urine Bilirubin NEGATIVE (NEGATIVE) Urine Urobilinogen 1.0 (<2.0) EU/dL Ur Leukocyte Esterase NEGATIVE (NEGATIVE) Departure - Departure Time of Disposition: 21:42 Disposition: Home, Self-Care 01 Condition: Good Clinical Impression: Pelvic pain - Discharge Information Referrals: PCP,None [Primary Care Provider] - Forms: ED Department Discharge Additional Instructions: If pain becomes unbearable or associated with vomiting everything so that you cannot keep anything down or high fever you should return to the emergency room. Follow-up with IMPLEMENTATION LEAD or primary care. You should have an ultrasound in about 2 to 3 weeks. As well as a repeat hCG. [facility] [address] [place] [id number] [facility] [address] [place] [id number] The following information is given to patients seen in the emergency department who are being discharged to home. This information is to outline your options for follow-up care. We provide all patients seen in our emergency department with a follow-up referral. The need for follow-up, as well as the timing and circumstances, are variable depending upon the specifics of your emergency department visit. If you don't have a primary care physician on staff, we will provide you with a referral. We always advise you to contact your personal physician following an emergency department visit to inform them of the circumstance of the visit and for follow-up with them and/or the need for any referrals to a consulting specialist. The emergency department will also refer you to a specialist when appropriate. This referral assures that you have the opportunity for follow-up care with a specialist. All of these measure are taken in an effort to provide you with optimal care, which includes your follow-up. Under all circumstances we always encourage you to contact your private physician who remains a resource for coordinating your care. When calling for follow-up care, please make the office aware that this follow-up is from your recent emergency room visit. If for any reason you are refused follow-up, please contact the [facility] Emergency Department at and asked to speak to the emergency department charge nurse. Sepsis Event Note (ED) - Focused Exam Vital Signs: Vital Signs Temp Pulse Resp BP Pulse Ox 11/17/20 19:50 36.1 C 74 18 132/84 99 - My Orders Last 24 Hours: My Active Orders 11/17/20 20:30 CULTURE URINE [RM] Stat - Assessment/Plan Last 24 Hours: My Active Orders 11/17/20 20:30 CULTURE URINE [RM] Stat
== END 2020-11-17 22:01 | disposition home or self-care (01) ==
LOC: MW.ED 19:40
DX: R10.2 Pelvic and perineal pain (principal)
CPT/HCPCS: 36415; 81003; 84702; 87086; 99284

== ENCOUNTER 2020-11-28 10:07 | Emergency (ER) | payer MEDICAID ==
[2020-11-28] MEDS ORDERED: Sodium Chloride 0.9% 1,000 ML IV STA (10:25)
[2020-11-28] MEDS ORDERED: Sodium Chloride 0.9% 1,000 ML IV ONE (10:29)
[2020-11-28] MEDS ORDERED: diphenhydrAMINE 50 MG/ML SDV IVPUSH ONE (10:32)
--- NOTE | 2020-11-28 10:34 | EDM.PDOC ---
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 The patient presented to the emergency room on November 15 for a complaint of possible a quantitative hCG was found to be 7. The patient returned to the emergency room on November 17, 2020 with complaints of fullness and pressure in her suprapuic area. At that time her quantitative hCG was found to be 280. She was told to follow-up with her TEACHER PHYSICALLY IMPAIRED and have an ultrasound in 2 to 3 weeks. If she was to have increased pain she was to return to the emergency room. Today the patient states that her pain again is intermittent pain coming and going without any associated factors. Patient states that she does have constipation but does not find relief when she does defecate. She is rating her pain at 10 out of 10, and took Al-Anon 650 mg at around 09:25 this AM. The patient is concerned as she states this is how her last ectopic went. The patient does complaint of nausea, however she has a very good appetite. She states that her appetite has been increasing every day. Patient denies any fever, chills, headache, change in vision, syncope or near syncope. Denies any chest pain, shortness of breath or cough. Denies any vomiting, diarrhea, constipation or dysuria. Has not noted any blood in urine or stool. Patient has been eating and drinking appropriately. Review of systems: As per history of present illness and below otherwise all systems reviewed and negative. Past medical history: As per history of present illness and as reviewed below otherwise noncontributory. Surgical history: As per history of present illness and as reviewed below otherwise noncontributory. Social history: See social history for further information Family history: As per history of present illness and as reviewed below otherwise noncontributory. Physical exam: General: Well developed and well nourished. Alert and orientated x 3. Nontoxic in appearance and in no acute distress. Vital signs are stable and have been reviewed by me. Nursing notes were reviewed. HEENT: Atraumatic, normocephalic, pupils equal and reactive bilaterally, negative for conjunctival pallor or scleral icterus, mucous membranes moist, TMs normal bilaterally, throat clear, neck supple, nontender, trachea midline. No drooling or trismus noted. No meningeal signs. No hot potato voice noted. Lungs: Clear to auscultation bilaterally. No wheezes, rales, or rhonchi. Chest nontender. Normal work of breathing, no accessory muscles used. Heart: S1S2, regular rate and rhythm without overt murmur, gallops, or rubs. No JVD. No peripheral edema Abdomen: Soft, nondistended, tender LLQ. Normoactive bowel sounds. Negative for masses or costovertebral tenderness. Back: Tenderness left lower exterior Skin: Intact, warm, dry. No lesions or rashes noted. Hematologic: No petechiae or purpra. Mucosa appropriate color and normal nail bed color and refill. Extremities: Atraumatic, moves all extremities per self without difficulty or deficits, negative for cords or calf pain. Neurovascular unremarkable. Neuro: Awake, alert, oriented. Cranial nerves II through XII unremarkable. Cerebellum unremarkable. Motor and sensory unremarkable throughout. Exam nonfocal. Psychiatric: Mood and affect are appropriate. Normal thought process. Answering questions appropriately. Notes: *This patient was seen and evaluated during the 2019 SARS-CoV-2 novel coronavirus pandemic period. Community viral transmission is ongoing at time of this encounter and the emergency department is operating under pandemic response procedures. As stated above the patient was seen on 11/15/2020, 11/17/2020, and comes in today with complaints of left lower back pain and left lower quad pain. She is concerned that she might be encountering another ectopic . Patient states that she has a follow-up with Dr. Nestor Tran is unsure of when that follow-up is. After examination and discussion with the patient I have ordered a CBC, CMP, quantitative hCG, UA, and OB transvaginal ultrasound due to possible ovarian torsion or ectopic . The patient CBC, CMP, UA are unremarkable. Quantitative hCG is 23,104, which puts her in 4 to 6 weeks gestation. OB pelvis ultrasound impression: 1. Single intrauterine gestation with crown rump length 2.23 mm which corresponds to a gestational age of 5 weeks 6 days with a sonographic due date of 07/25/2021. This is concordant with the clinical gestational age by LMP. 2. cardiac activity is not visualized. This may be due to early dates. Recommend short-term follow-up ultrasound to confirm viability. 3. 2.5 cm simple cyst in the right ovary. 4. Blood flow was not visualized within the left ovary. This could be due to positioning. Torsion cannot entirely be excluded, however this is considered less likely given normal grayscale appearance. Correlate clinically.I consulted with Dr. Hernandez from [facility] regarding ultrasound results. Dr. Hernandez stated that no cardiac activity is normal for this early stage of . She also stated that torsion would be extremely unlikely. Dr. Hernandez stated the patient could be discharged with instructions to follow-up as needed. Dr. Hernandez will talk with Dr.Rukeme Tran nurse and have the appointment moved up. I spoke with the patient and she is aware and agreeable to the discharge plan. I have talked with the patient about today's findings, in addition to providing specific details for plan of care. Reassessment at the time of disposition demonstrates that the patient is in no acute distress. The patient is stable for discharge, counseling was provided and we discussed in great detail signs and symptoms that would prompt them to return to the Emergency Department. Medication, follow up and supportive care measures were reviewed and discussed. Voices understanding and is agreeable to plan of care. Denies any further que stions or concerns at this time. Diagnostics: CBC, CMP, quantitative hCG, UA, OB transvaginal ultrasound Therapeutics: IV fluids, Benadryl 10 mg IV Impression: Intrauterine Plan: 1. You were evaluated today on an emergent basis. Your complaints of left lower quad pain and left lower back pain were evaluated with blood work, urinalysis, quantitative hCG, and an ultrasound. Your blood work was unremarkable and your urinalysis did not appear to have an infection in it. Your quantitative hCG was 23, 104 which is appropriate for your point in the . Your ultrasound showed a single intrauterine gestation corresponding to the gestational age of 5 weeks 6 days with a sonographic due date of 07/25/2021. The ultrasound did state that cardiac activity is not visualized. This may be due to early dates. And that blood flow was not visualized in the left ovary but could be due to positioning. I consulted with Dr. Hernandez from [facility] and she concurred that torsion was not likely and that it was early and normal not to see the cardiac activity at this stage of . Dr. Hernandez will get a hold of Dr. Nestor Tran nurse will call you for an earlier appointment. If you develop a fever, nausea, vomiting, or vaginal bleeding or increased pain please return to the emergency department 2. You can alternate Tylenol and ibuprofen as needed for pain and fever management. 3. We encourage you to follow up with your primary care provider and/or recommended specialist in the next few days for re-evaluation and further care/management. 4. If your symptoms should worsen, new symptoms develop or any of the signs and symptoms we discussed should arise please return to the emergency room or call 911 (if needed). Definitive disposition and diagnosis as appropriate pending reevaluation and review of above. 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 PHYSICALLY IMPAIRED History: Reports: Ectopic , , Other (See Below) Other TEACHER PHYSICALLY IMPAIRED History: Premature deliveries x 4; ; Ectopic DNC in 03/2020 Musculoskeletal History: Reports: None Neurological History: Reports: Concussion Psychiatric History: Reports: None Endocrine/Metabolic History: Reports: None Insulin Pump Model and Bioprocessing Manufacturing Technician: None Hematologic History: Reports: Anemia Other Hematologic History: iron transfusion Immunologic History: Reports: None Oncologic (Cancer) History: Reports: None Dermatologic History: Reports: None - Infectious Disease History Infectious Disease History: Reports: Other (See Below) Other Infectious Disease History: Chlamydia - Past Surgical History Head Surgeries/Procedures: Reports: None HEENT Surgical History: Reports: None Cardiovascular Surgical History: Reports: None Respiratory Surgical History: Reports: None GI Surgical History: Reports: None Female Surgical History: Reports: Section, Other (See Below) Other Female Surgeries/Procedures: fernandez hole surgery, right falopian tube removed Endocrine Surgical History: Reports: None Neurological Surgical History: Reports: None Musculoskeletal Surgical History: Reports: None Oncologic Surgical History: Reports: None Dermatological Surgical History: Reports: None Social & Family History - Family History Family Medical History: No Pertinent Family History Cardiac: Reports: Hypertension OBGYN: Reports: - Tobacco Use Tobacco Use Status *Q: Never Tobacco User Second Hand Smoke Exposure: No - Caffeine Use Caffeine Use: Reports: None - Recreational Drug Use Recreational Drug Use: No ED ROS GENERAL - Review of Systems Review Of Systems: Comprehensive ROS is negative, except as noted in HPI. ED EXAM, GI/ABD - Physical Exam Exam: See Below (See dictation) Course - Vital Signs Last Recorded V/S: Last Vital Signs Temp 97.3 F 11/28/20 10:13 Pulse 54 L 11/28/20 13:04 Resp 18 11/28/20 13:04 BP 124/77 11/28/20 13:04 Pulse Ox 100 11/28/20 13:04 - Orders/Labs/Meds Labs: Laboratory Tests 11/28/20 11/28/20 11/28/20 Range/Units 10:31 10:31 11:21 WBC 8.22 (4.0-11.0) K/uL RBC 3.98 L (4.30-5.90) M/uL Hgb 10.2 L (12.0-16.0) g/dL Hct 31.3 L (36.0-46.0) % MCV 78.6 L (80.0-98.0) fL MCH 25.6 L (27.0-32.0) pg MCHC 32.6 (31.0-37.0) g/dL RDW Std Deviation 47.3 (28.0-62.0) fl RDW Coeff of Alessandra 16 H (11.0-15.0) % Plt Count 329 (150-400) K/uL MPV 9.50 (7.40-12.00) fL Neut % (Auto) 60.7 (48.0-80.0) % Lymph % (Auto) 26.5 (16.0-40.0) % Love % (Auto) 6.2 (0.0-15.0) % Eos % (Auto) 6.2 (0.0-7.0) % Baso % (Auto) 0.4 (0.0-1.5) % Neut # (Auto) 5.0 (1.4-5.7) K/uL Lymph # (Auto) 2.2 (0.6-2.4) K/uL Love # (Auto) 0.5 (0.0-0.8) K/uL Eos # (Auto) 0.5 (0.0-0.7) K/uL Baso # (Auto) 0.0 (0.0-0.1) K/uL Nucleated RBC % 0.0 /100WBC Nucleated RBCs # 0 K/uL Sodium 137 (136-145) mmol/L Potassium 3.9 (3.5-5.1) mmol/L Chloride 104 (98-107) mmol/L Carbon Dioxide 22.7 (21.0-32.0) mmol/L BUN 8 (7.0-18.0) mg/dL Creatinine 1.1 H (0.6-1.0) mg/dL Est Cr Clr Drug Dosing 64.11 mL/min Estimated GFR (MDRD) > 60.0 ml/min Glucose 92 (74-106) mg/dL Calcium 8.1 L (8.5-10.1) mg/dL Total Bilirubin 0.3 (0.2-1.0) mg/dL AST 50 H (15-37) IU/L ALT 62 (14-63) IU/L Alkaline Phosphatase 144 H (46-116) U/L Total Protein 7.3 (6.4-8.2) g/dL Albumin 3.4 (3.4-5.0) g/dL Globulin 3.9 (2.6-4.0) g/dL Albumin/Globulin Ratio 0.9 (0.9-1.6) HCG, Quant 29464.0 mIU/mL Urine Color YELLOW Urine Appearance CLEAR Urine pH 6.5 (5.0-8.0) Ur Specific [place] 1.020 (1.001-1.035) Urine Protein NEGATIVE (NEGATIVE) mg/dL Urine Glucose (UA) NEGATIVE (NEGATIVE) mg/dL Urine Ketones NEGATIVE (NEGATIVE) mg/dL Urine Occult Blood NEGATIVE (NEGATIVE) Urine Nitrite NEGATIVE (NEGATIVE) Urine Bilirubin NEGATIVE (NEGATIVE) Urine Urobilinogen 0.2 (<2.0) EU/dL Ur Leukocyte Esterase SMALL H (NEGATIVE) Urine RBC RARE (0-2/HPF) Urine WBC 0-2 (0-5/HPF) Ur Epithelial Cells FEW (NONE-FEW) Urine Bacteria FEW (NEGATIVE) Urine Mucus LIGHT (NONE-MOD) Meds: Medications Discontinued Medications Generic Name Dose Route Start Last Admin Trade Name Freq PRN Reason Stop Dose Admin Diphenhydramine HCl 10 mg 11/28/20 10:32 11/28/20 10:41 Diphenhydramine 50 Mg/Ml Sdv IVPUSH 11/28/20 10:33 10 mg ONETIME ONE Administration Sodium Chloride 1,000 mls @ 999 mls/hr 11/28/20 10:25 11/28/20 10:27 Normal Saline IV 11/28/20 11:25 999 mls/hr STAT STA Administration Sodium Chloride 1,000 mls @ 999 mls/hr 11/28/20 10:29 11/28/20 10:35 Normal Saline IV 11/28/20 11:29 Not Given .BOLUS ONE Departure - Departure Time of Disposition: 12:55 Disposition: Home, Self-Care 01 Condition: Good Clinical Impression: Intrauterine - Discharge Information *PRESCRIPTION DRUG MONITORING PROGRAM REVIEWED*: Not Applicable *COPY OF PRESCRIPTION DRUG MONITORING REPORT IN PATIENT GAYLE: Not Applicable Instructions: Care Referrals: PCP,None [Primary Care Provider] - Forms: ED Department Discharge Additional Instructions: The following information is given to patients seen in the emergency department who are being discharged to home. This information is to outline your options for follow-up care. We provide all patients seen in our emergency department with a follow-up referral. The need for follow-up, as well as the timing and circumstances, are variable depending upon the specifics of your emergency department visit. If you don't have a primary care physician on staff, we will provide you with a referral. We always advise you to contact your personal physician following an emergency department visit to inform them of the circumstance of the visit and for follow-up with them and/or the need for any referrals to a consulting specialist. The emergency department will also refer you to a specialist when appropriate. This referral assures that you have the opportunity for follow-up care with a specialist. All of these measure are taken in an effort to provide you with optimal care, which includes your follow-up. Under all circumstances we always encourage you to contact your private physician who remains a resource for coordinating your care. When calling for follow-up care, please make the office aware that this follow-up is from your recent emergency room visit. If for any reason you are refused follow-up, please contact the [facility] Emergency Department at and asked to speak to the emergency department charge nurse. [facility] - Primary [facility] [address] [place] [id number] [address] Plan: 1. You were evaluated today on an emergent basis. Your complaints of left lower quad pain and left lower back pain were evaluated with blood work, urinalysis, quantitative hCG, and an ultrasound. Your blood work was unremarkable and your urinalysis did not appear to have an infection in it. Your quantitative hCG was 23, 104 which is appropriate for your point in the . Your ultrasound showed a single intrauterine gestation corresponding to the gestational age of 5 weeks 6 days with a sonographic due date of 07/25/2021. The ultrasound did state that cardiac activity is not visualized. This may be due to early dates. And that blood flow was not visualized in the left ovary but could be due to positioning. I consulted with Dr. Hernandez from [facility] and she concurred that torsion was not likely and that it was early and normal not to see the cardiac activity at this stage of . Dr. Hernandez will get a hold of Dr. Nestor Tran nurse will call you for an earlier appointment. If you develop a fever, nausea, vomiting, or vaginal bleeding or increased pain please return to the emergency department 2. You can alternate Tylenol and ibuprofen as needed for pain and fever management. 3. We encourage you to follow up with your primary care provider and/or recommended specialist in the next few days for re-evaluation and further care/management. 4. If your symptoms should worsen, new symptoms develop or any of the signs and symptoms we discussed should arise please return to the emergency room or call 911 (if needed). Sepsis Event Note (ED) - Evaluation Sepsis Screening Result: No Definite Risk - Focused Exam Vital Signs: Vital Signs Temp Pulse Resp BP Pulse Ox 11/28/20 13:04 54 L 18 124/77 100 11/28/20 10:13 97.3 F 79 18 130/77 100
[2020-11-28 11:10] LABS: BLOOD UREA NITROGEN,BUN 8 mg/dL (7.0-18.0); CARBON DIOXIDE,CO2 22.7 mmol/L (21.0-32.0); CHLORIDE,CL 104 mmol/L (98-107); GLUCOSE RANDOM 92 mg/dL (74-106); POTASSIUM,K 3.9 mmol/L (3.5-5.1); SODIUM,NA 137 mmol/L (136-145)
--- NOTE | 2020-11-28 12:40 | US ---
INDICATION: Left groin pain. History of ectopic in 2020 status post partial resection of the right fallopian tube. Beta hCG measures 23,104. LMP 10/19/2020. COMPARISON: Ob ultrasound 11/15/2020. TECHNIQUE: Real-time bui-scale imaging of the pelvis was performed. FINDINGS: Sonographic imaging demonstrates a single intrauterine gestation. cardiac activity is not visualized. The embryo`s crown-rump length measurement of 2.23 mm corresponds to a gestational age of 5 weeks 6 days with a sonographic due date of 07/25/2021. There is a normal-appearing yolk sac. The placenta has not yet developed. No evidence of a perigestational hemorrhage. The cervix appears closed. The right ovary measures 3.7 x 3.5 x 3.8 cm and the left ovary measures 2.1 x 1.9 x 2.7 cm. There is a 2.5 cm anechoic cyst in the right ovary. Normal blood flow within the right ovary. Blood flow was not visualized within the left ovary. Small amount of free fluid in the cul-de-sac. IMPRESSION: 1. Single intrauterine gestation with crown rump length 2.23 mm which corresponds to a gestational age of 5 weeks 6 days with a sonographic due date of 07/25/2021. This is concordant with the clinical gestational age by LMP. 2. cardiac activity is not visualized. This may be due to early dates. Recommend short-term follow-up ultrasound to confirm viability. 3. 2.5 cm simple cyst in the right ovary. 4. Blood flow was not visualized within the left ovary. This could be due to positioning. Torsion cannot entirely be excluded, however this is considered less likely given normal grayscale appearance. Correlate clinically. Dictated by Lizzy Murphy MD @ 11/28/2020 12:39:[address] Lizzy Murphy @ Nov 28 2020 12:39PM
== END 2020-11-28 13:04 | disposition home or self-care (01) ==
LOC: MW.ED 10:07
DX: O99.891 Other specified diseases and conditions complicating pregnancy (principal); M54.5 Low back pain; Z3A.01 Less than 8 weeks gestation of pregnancy
CPT/HCPCS: 36415; 76817; 80053; 81001; 84702; 85025; 96374; 99284; J1200; J7030; 99283

== ENCOUNTER 2020-11-30 20:38 | Emergency (ER) | payer MEDICAID ==
--- NOTE | 2020-11-30 20:49 | EDM.PDOC ---
ED HPI GENERAL MEDICAL PROBLEM - General Chief Complaint: Chest Pain Stated Complaint: SPOKE TO NURSE Time Seen by Provider: 11/30/20 20:47 Source of Information: Reports: Patient History Limitations: Reports: No Limitations - History of Present Illness INITIAL COMMENTS - FREE TEXT/NARRATIVE: Patient is a 25-year-old female who 6 weeks presents today for left- sided chest pain. Patient she went to her WORKS MANAGER appointment today admits to some left upper chest discomfort and her WORKS MANAGER told her she had arrhythmia with a heart satiety states has been pretty nervous about it and became concerned when the discomfort came again tonight. States he feels, the tight feeling in her upper chest she currently has no pain. The discomfort does not radiate. She states laying down flat makes it worse and sitting up makes the better. Patient has any shortness of breath leg swelling fever chills or cough. Left Upper Chest Pain Score (Numeric/FACES): 1 - Related Data Allergies Allergy/AdvReac Type Severity Reaction Status Date / Time No Known Allergies Allergy Verified 11/30/20 20:47 Home Meds: Home Meds Docosahexaenoic Acid [ Dha] 1 tab PO DAILY 11/28/20 [History] Past Medical History - Past Health History Medical/Surgical History: Denies Medical/Surgical History HEENT History: Reports: None Cardiovascular History: Reports: None Respiratory History: Reports: None Gastrointestinal History: Reports: None Genitourinary History: Reports: None WORKS MANAGER History: Reports: Ectopic , , Other (See Below) Other WORKS MANAGER History: Premature deliveries x 4; ; Ectopic DNC in 03/2020 Musculoskeletal History: Reports: None Neurological History: Reports: Concussion Psychiatric History: Reports: None Endocrine/Metabolic History: Reports: None 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: None Hematologic History: Reports: Anemia Other Hematologic History: iron transfusion Immunologic History: Reports: None Oncologic (Cancer) History: Reports: None Dermatologic History: Reports: None - Infectious Disease History Infectious Disease History: Reports: Other (See Below) Other Infectious Disease History: Chlamydia - Past Surgical History Head Surgeries/Procedures: Reports: None HEENT Surgical History: Reports: None Cardiovascular Surgical History: Reports: None Respiratory Surgical History: Reports: None GI Surgical History: Reports: None Female Surgical History: Reports: Section, Other (See Below) Other Female Surgeries/Procedures: fernandez hole surgery, right falopian tube removed Endocrine Surgical History: Reports: None Neurological Surgical History: Reports: None Musculoskeletal Surgical History: Reports: None Oncologic Surgical History: Reports: None Dermatological Surgical History: Reports: None Social & Family History - Family History Family Medical History: No Pertinent Family History Cardiac: Reports: Hypertension OBGYN: Reports: - Caffeine Use Caffeine Use: Reports: None ED ROS GENERAL - Review of Systems Review Of Systems: See Below Constitutional: Reports: No Symptoms HEENT: Reports: No Symptoms Respiratory: Reports: No Symptoms Cardiovascular: Reports: Chest Pain Endocrine: Reports: No Symptoms GI/Abdominal: Reports: No Symptoms : Reports: No Symptoms Musculoskeletal: Reports: No Symptoms Skin: Reports: No Symptoms Neurological: Reports: No Symptoms Psychiatric: Reports: No Symptoms Hematologic/Lymphatic: Reports: No Symptoms Immunologic: Reports: No Symptoms ED EXAM, GENERAL - Physical Exam Exam: See Below Exam Limited By: No Limitations General Appearance: Alert, WD/WN, No Apparent Distress Neck: Normal Inspection, Supple Respiratory/Chest: No Respiratory Distress, Lungs Clear Cardiovascular: Normal Peripheral Pulses, Regular Rate, Rhythm GI/Abdominal: Normal Bowel Sounds, Soft, Non-Tender Extremities: Normal Inspection, Normal Range of Motion Neurological: Alert, Oriented, CN II-XII Intact, Normal Cognition #1 Interpretation EKG Date: 11/30/20 Time: 16:32 Rhythm: NSR Rate (Beats/Min): 81 ST-T: Normal Course - Vital Signs Last Recorded V/S: Last Vital Signs Temp 98.3 F 11/30/20 20:43 Pulse 74 11/30/20 20:43 Resp 20 11/30/20 20:43 BP 142/90 H 11/30/20 20:43 Pulse Ox 99 11/30/20 20:43 - Orders/Labs/Meds Orders: Active Orders 24 hr Category Date Time Status EKG Documentation Completion [RC] STAT Care 11/30/20 20:46 Active Labs: Laboratory Tests 11/30/20 11/30/20 11/30/20 Range/Units 20:40 20:40 20:40 WBC 10.99 (4.0-11.0) K/uL RBC 4.07 L (4.30-5.90) M/uL Hgb 10.5 L (12.0-16.0) g/dL Hct 31.8 L (36.0-46.0) % MCV 78.1 L (80.0-98.0) fL MCH 25.8 L (27.0-32.0) pg MCHC 33.0 (31.0-37.0) g/dL RDW Std Deviation 47.4 (28.0-62.0) fl RDW Coeff of Aelssandra 17 H (11.0-15.0) % Plt Count 397 (150-400) K/uL MPV 9.80 (7.40-12.00) fL Neut % (Auto) 73.2 (48.0-80.0) % Lymph % (Auto) 19.2 (16.0-40.0) % Valencia % (Auto) 5.5 (0.0-15.0) % Eos % (Auto) 1.8 (0.0-7.0) % Baso % (Auto) 0.3 (0.0-1.5) % Neut # (Auto) 8.1 H (1.4-5.7) K/uL Lymph # (Auto) 2.1 (0.6-2.4) K/uL Valencia # (Auto) 0.6 (0.0-0.8) K/uL Eos # (Auto) 0.2 (0.0-0.7) K/uL Baso # (Auto) 0.0 (0.0-0.1) K/uL Nucleated RBC % 0.0 /100WBC Nucleated RBCs # 0 K/uL Sodium 134 L (136-145) mmol/L Potassium 3.7 (3.5-5.1) mmol/L Chloride 102 (98-107) mmol/L Carbon Dioxide 20.1 L (21.0-32.0) mmol/L BUN 12 (7.0-18.0) mg/dL Creatinine 1.2 H (0.6-1.0) mg/dL Est Cr Clr Drug Dosing 58.77 mL/min Estimated GFR (MDRD) > 60.0 ml/min Glucose 107 H (74-106) mg/dL Calcium 8.6 (8.5-10.1) mg/dL Total Bilirubin 0.2 (0.2-1.0) mg/dL AST 28 (15-37) IU/L ALT 50 (14-63) IU/L Alkaline Phosphatase 155 H (46-116) U/L Creatine Kinase 113 (26-308) U/L Troponin I < 0.050 (0.000-0.056) ng/mL Total Protein 7.9 (6.4-8.2) g/dL Albumin 3.8 (3.4-5.0) g/dL Globulin 4.1 H (2.6-4.0) g/dL Albumin/Globulin Ratio 0.9 (0.9-1.6) HCG, Qual POSITIVE H (NEG) Meds: Medications Discontinued Medications Generic Name Dose Route Start Last Admin Trade Name Freq PRN Reason Stop Dose Admin Acetaminophen 650 mg 11/30/20 21:14 11/30/20 21:21 Acetaminophen 325 Mg Tab PO 11/30/20 21:15 650 mg NOW ONE Administration - Re-Assessments/Exams Free Text/Narrative Re-Assessment/Exam: 11/30/20 22:04 Patient tropes are negative EKG as well. Patient is not tacky hypoxic. Patient will follow up with her primary care physician and WORKS MANAGER. Patient given strict return precautions. Departure - Departure Time of Disposition: 22:05 Disposition: Home, Self-Care 01 Condition: Good Clinical Impression: Chest pain during Instructions: Nonspecific Chest Pain, Adult, [id number] Forms: ED Department Discharge Additional Instructions: The following information is given to patients seen in the emergency department who are being discharged to home. This information is to outline your options for follow-up care. We provide all patients seen in our emergency department with a follow-up referral. The need for follow-up, as well as the timing and circumstances, are variable depending upon the specifics of your emergency department visit. If you don't have a primary care physician on staff, we will provide you with a referral. We always advise you to contact your personal physician following an emergency department visit to inform them of the circumstance of the visit and for follow-up with them and/or the need for any referrals to a consulting spec ialist. The emergency department will also refer you to a specialist when appropriate. This referral assures that you have the opportunity for follow-up care with a specialist. All of these measure are taken in an effort to provide you with optimal care, which includes your follow-up. Under all circumstances we always encourage you to contact your private physician who remains a resource for coordinating your care. When calling for follow-up care, please make the office aware that this follow-up is from your recent emergency room visit. If for any reason you are refused follow-up, please contact the [facility] Emergency Department at and asked to speak to the emergency department charge nurse. Please follow up with your primary care physician. If you do not have a primary care physician, see below: [facility] [address] [place] [id number] [facility] [address] [place] [id number] You were seen today for chest pain to your left side that is made worse when you sit up. We did a EKG and labs that were within normal limits. We do have a definite cause of your chest pain but it may be musculoskeletal we want you to keep an eye on it if you have increasing pain shortness of breath or lower leg swelling please return to the ED immediately. Otherwise follow-up with your primary care physician.. Sepsis Event Note (ED) - Evaluation Sepsis Screening Result: No Definite Risk - Focused Exam Vital Signs: Vital Signs Temp Pulse Resp BP Pulse Ox 11/30/20 20:43 98.3 F 74 20 142/90 H 99 - My Orders Last 24 Hours: My Active Orders 11/30/20 20:46 EKG Documentation Completion [RC] STAT - Assessment/Plan Last 24 Hours: My Active Orders 11/30/20 20:46 EKG Documentation Completion [RC] STAT Plan: This is a 25-year-old female presents today for left-sided chest pain. Patient has a heart score of 0. Patient will have EKG labs and reassess.
[2020-11-30] MEDS ORDERED: Acetaminophen 325 MG Tab PO ONE (21:14)
[2020-11-30 21:47] LABS: BLOOD UREA NITROGEN,BUN 12 mg/dL (7.0-18.0); CARBON DIOXIDE,CO2 20.1 mmol/L (21.0-32.0); CHLORIDE,CL 102 mmol/L (98-107); GLUCOSE RANDOM 107 mg/dL (74-106); POTASSIUM,K 3.7 mmol/L (3.5-5.1); SODIUM,NA 134 mmol/L (136-145)
== END 2020-11-30 22:16 | disposition home or self-care (01) ==
LOC: MW.ED 20:38
DX: O99.891 Other specified diseases and conditions complicating pregnancy (principal); R07.89 Other chest pain; Z3A.01 Less than 8 weeks gestation of pregnancy
CPT/HCPCS: 36415; 80053; 82550; 84484; 84703; 85025; 93005; 99285; A9270; 93010; 99283

== ENCOUNTER 2021-01-31 09:19 | Day surgery (SDC) | payer MEDICAID ==
[~2021-01-31 09:19] MED LIST: Albuterol 0.083% 2.5 MG/3 ML Neb Soln NEB PRN; HYDROmorphone 2 MG/ML Syringe IVPUSH PRN; Lidocaine 2% 5 ML SDV ONE; Metoclopramide 10 MG/2 ML SDV IVPUSH PRN; Morphine 2 MG/ML SYRINGE IVPUSH PRN; Naloxone 0.4 MG/ML Syringe IVPUSH PRN; Ondansetron 4 MG/2 ML SDV IVPUSH PRN; Sodium Chloride 0.9% 10 ML SDV IV PRN; Sodium Chloride 0.9% 10 ML Syringe FLUSH PRN; Sodium Chloride 0.9% 2.5 ML Syringe FLUSH PRN; fentaNYL 100 MCG/2 ML SDV IVPUSH PRN; propofoL 50 ML ONE
[2021-01-31] MEDS ORDERED: metroNIDAZOLE/Normal Saline 500 MG in Premix Bag 1 BAG IV ONE (09:30)
--- NOTE | 2021-01-31 10:01 | PCM.PREANE ---
Preanesthetic Assessment - Anesthesia/Transfusion/Family Hx Anesthesia History: Prior Anesthesia Without Reaction Transfusion History: Prior Transfusion Without Reaction Other Type of Transfusion Reaction: iron transfusion Intubation History: Unknown - Review of Systems General: No Symptoms Pulmonary: No Symptoms Cardiovascular: No Symptoms Gastrointestinal: No Symptoms Neurological: No Symptoms Other: Reports: None - Physical Assessment NPO Status Date: 01/31/21 NPO Status Time: 00:00 Height: 5 ft 3 in Weight: 148 lb ASA Class: 2 Mental Status: Alert & Oriented x3 Airway Class: Mallampati = 2 Dentition: Reports: Normal Dentition Thyro-Mental Finger Breadths: 3 Mouth Opening Finger Breadths: 3 ROM/Head Extension: Full Lungs: Clear to Auscultation, Normal Respiratory Effort Cardiovascular: Regular Rate, Regular Rhythm - Lab Values: Laboratory Last Values WBC 14.88 K/uL (4.0-11.0) H 01/31/21 09:49 RBC 3.99 M/uL (4.30-5.90) L 01/31/21 09:49 Hgb 10.5 g/dL (12.0-16.0) L 01/31/21 09:49 Hct 31.8 % (36.0-46.0) L 01/31/21 09:49 MCV 79.7 fL (80.0-98.0) L 01/31/21 09:49 MCH 26.3 pg (27.0-32.0) L 01/31/21 09:49 MCHC 33.0 g/dL (31.0-37.0) 01/31/21 09:49 RDW Std Deviation 49.4 fl (28.0-62.0) 01/31/21 09:49 RDW Coeff of Alessandra 17 % (11.0-15.0) H 01/31/21 09:49 Plt Count 335 K/uL (150-400) 01/31/21 09:49 MPV 9.10 fL (7.40-12.00) 01/31/21 09:49 Neut % (Auto) 70.5 % (48.0-80.0) 01/31/21 09:49 Lymph % (Auto) 15.2 % (16.0-40.0) L 01/31/21 09:49 [place] % (Auto) 5.6 % (0.0-15.0) 01/31/21 09:49 Eos % (Auto) 8.4 % (0.0-7.0) H 01/31/21 09:49 Baso % (Auto) 0.3 % (0.0-1.5) 01/31/21 09:49 Neut # (Auto) 10.5 K/uL (1.4-5.7) H 01/31/21 09:49 Lymph # (Auto) 2.3 K/uL (0.6-2.4) 01/31/21 09:49 Durham # (Auto) 0.8 K/uL (0.0-0.8) 01/31/21 09:49 Eos # (Auto) 1.3 K/uL (0.0-0.7) H 01/31/21 09:49 Baso # (Auto) 0.0 K/uL (0.0-0.1) 01/31/21 09:49 Nucleated RBC % 0.0 /100WBC 01/31/21 09:49 Nucleated RBCs # 0 K/uL 01/31/21 09:49 - Allergies Allergies/Adverse Reactions: Allergies Allergy/AdvReac Type Severity Reaction Status Date / Time No Known Allergies Allergy Verified 01/31/21 07:24 - Acknowledgements Anesthesia Type Planned: General Anesthesia Pt an Appropriate Candidate for the Planned Anesthesia: Yes Alternatives and Risks of Anesthesia Discussed w Pt/Guardian: Yes Pt/Guardian Understands and Agrees with Anesthesia Plan: Yes PreAnesthesia Questionnaire - Past Health History Medical/Surgical History: Denies Medical/Surgical History HEENT History: Reports: Other (See Below) Other HEENT History: glasses, dental braces Cardiovascular History: Reports: None Respiratory History: Reports: None Gastrointestinal History: Reports: None Genitourinary History: Reports: None 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 , , Other (See Below) Other OB/BYN History: Premature deliveries x 4; ; Ectopic in 03/2020 Musculoskeletal History: Reports: None Neurological History: Reports: None Psychiatric History: Reports: None Endocrine/Metabolic History: Reports: None Hematologic History: Reports: Iron Deficiency Other Hematologic History: iron transfusion Immunologic History: Reports: None Oncologic (Cancer) History: Reports: None Dermatologic History: Reports: None - Infectious Disease History Infectious Disease History: Reports: Other (See Below) Other Infectious Disease History: Chlamydia - Past Surgical History Head Surgeries/Procedures: Reports: None HEENT Surgical History: Reports: None Cardiovascular Surgical History: Reports: None Respiratory Surgical History: Reports: None GI Surgical History: Reports: None Female Surgical History: Reports: Section, Other (See Below) Other Female Surgeries/Procedures: laparoscopy for ectopic with right falopian tube removel Endocrine Surgical History: Reports: None Neurological Surgical History: Reports: None Musculoskeletal Surgical History: Reports: None Oncologic Surgical History: Reports: None Dermatological Surgical History: Reports: None - SUBSTANCE USE Tobacco Use Status *Q: Never Tobacco User - HOME MEDS Home Medications: Home Meds Ferrous Sulfate [Iron] 1 tab PO DAILY 01/31/21 [History] Pnv,Calcium 72/Iron/Folic Acid [ Vitamin Plus Low Iron] 1 tab PO DAILY 01/31/21 [History] - CURRENT (IN HOUSE) MEDS Current Meds: Current Medications Albuterol (Albuterol 0.083% 2.5 Mg/3 Ml Neb Soln) 2.5 mg NEB ONETIME PRN PRN Reason: Wheezing Droperidol (Droperidol 5 Mg/2 Ml Sdv) 0.625 mg IVPUSH ONETIME PRN PRN Reason: Nausea/Vomiting Fentanyl (Fentanyl 100 Mcg/2 Ml Sdv) 50 mcg IVPUSH Q5M PRN PRN Reason: Pain (mild 1-3) Hydromorphone HCl (Hydromorphone 2 Mg/Ml Syringe) 1 mg IVPUSH Q10M PRN PRN Reason: Pain (moderate 4-6) Metronidazole 500 mg/ Premix 100 mls @ 100 mls/hr IV ONETIME ONE Stop: 01/31/21 10:29 Metoclopramide HCl (Metoclopramide 10 Mg/2 Ml Sdv) 10 mg IVPUSH ONETIME PRN PRN Reason: Nausea/Vomiting Morphine Sulfate (Morphine 2 Mg/Ml Syringe) 2 mg IVPUSH Q10M PRN PRN Reason: Pain (severe 7-10) Naloxone HCl (Naloxone 0.4 Mg/Ml Syringe) 0.1 mg IVPUSH ASDIRECTED PRN PRN Reason: Respiratory Depression Ondansetron HCl (Ondansetron 4 Mg/2 Ml Sdv) 4 mg IVPUSH ONETIME PRN PRN Reason: Nausea/Vomiting Sodium Chloride (Sodium Chloride 0.9% 10 Ml Syringe) 10 ml FLUSH ASDIRECTED PRN PRN Reason: Keep Vein Open Sodium Chloride (Sodium Chloride 0.9% 2.5 Ml Syringe) 2.5 ml FLUSH ASDIRECTED PRN PRN Reason: Keep Vein Open Sodium Chloride (Sodium Chloride 0.9% 10 Ml Sdv) 10 ml IV ASDIRECTED PRN PRN Reason: IV Use Discontinued Medications Propofol (Diprivan 50 Ml) Confirm Administered Dose 50 mls @ as directed .ROUTE .STK-MED ONE Stop: 01/31/21 07:26 Acetaminophen (Ofirmev 1000 Mg/100 Ml) Confirm Administered Dose 100 mls @ as di rected .ROUTE .STK-MED ONE Stop: 01/31/21 08:26 Lidocaine (Lidocaine 2% 5 Ml Sdv) Confirm Administered Dose 5 ml .ROUTE .STK-MED ONE Stop: 01/31/21 08:26
[2021-01-31] MEDS ORDERED: fentaNYL 100 MCG/2 ML SDV ONE (11:14)
--- NOTE | 2021-01-31 11:45 | PCM.POSTAN ---
POST ANESTHESIA ASSESSMENT - MENTAL STATUS Mental Status: Alert - VITAL SIGNS Vital Signs: Last Vital Signs Temp 36.6 C 01/31/21 09:38 Pulse 88 01/31/21 09:38 Resp 16 01/31/21 09:38 BP 137/81 01/31/21 09:38 Pulse Ox 98 01/31/21 09:38 - RESPIRATORY Respiratory Status: Respiratory Rate WNL, Airway Patent, O2 Saturation Stable - CARDIOVASCULAR CV Status: Pulse Rate WNL - GASTROINTESTINAL GI Status: No Symptoms - POST OP HYDRATION Hydration Status: Adequate & Stable
--- NOTE | 2021-01-31 11:47 | PCM48HPAN ---
Post Anesthesia Note - EVALUATION WITHIN 48HRS OF ANESTHETIC Vital Signs in Normal Range: Yes Patient Participated in Evaluation: Yes Respiratory Function Stable: Yes Airway Patent: Yes Cardiovascular Function Stable: Yes Hydration Status Stable: Yes Pain Control Satisfactory: Yes Nausea and Vomiting Control Satisfactory: Yes Mental Status Recovered: Yes Vital Signs: Last Vital Signs Temp 36.6 C 01/31/21 09:38 Pulse 88 01/31/21 09:38 Resp 16 01/31/21 09:38 BP 137/81 01/31/21 09:38 Pulse Ox 98 01/31/21 09:38
--- NOTE | 2021-01-31 11:48 | PCM.OPNOTE ---
- General Post-Op/Procedure Note Date of Surgery/Procedure: 01/31/21 Operative Procedure(s): Cervical Cerclage via Veliz technique Findings: Uterus about 16 weeks Cervix appeared patulous and slightly opened Pre Op Diagnosis: 25yo with Hx of delivery. Cervical insufficiency. 14 weeks gestation Post-Op Diagnosis: same Anesthesia Technique: MAC Primary Surgeon: Nestor Tran Anesthesia Provider: Enedina Stuart Fluid Replacement, Intraop: 200 Output, Urine Amount: 50 EBL in mLs: 10 Complications: None Condition: Good Free Text/Narrative:: Cerclage done via Veliz . Purse string stitch from 12 to 9 to 7 to 5 to 3 oclock to 1oclock Ethibond 1.0 CT1
[2021-01-31] MEDS ORDERED: diphenhydrAMINE 50 MG/ML SDV IVPUSH ONE (11:57)
--- NOTE | 2021-02-01 13:04 | OR ---
SURGEON: JYOTSNA TITUS DATE OF PROCEDURE: 01/31/2021 PREOPERATIVE DIAGNOSES: A 25-year-old G7, P0-5-1-4 at 14 weeks and 3 days for history indicated cerclage secondary to history of cervical insufficiency and delivery. POSTOPERATIVE DIAGNOSIS: A 25-year-old G7, P0-5-1-4 at 14 weeks and 3 days for history indicated cerclage secondary to history of cervical insufficiency and delivery. PROCEDURE: Cervical cerclage via Castellano technique. ESTIMATED BLOOD LOSS: 10 mL. IV FLUID: 300. ANESTHESIA: MAC. COMPLICATION: None. NOTES AND FINDINGS: A 16-week size uterus. Cervix appeared slightly dilated and patulous. BRIEF HISTORY ABOUT THE PATIENT: A 25-year-old, G7, P0-5-1-4, 14 weeks and 3 days for history indicated cerclage. The patient had all patent deliveries from 32 to 34 weeks. She gave a history of cervical dilation in one of pregnancies from about 20 weeks. She had a previous history of also. The patient was then given the option for cervical cerclage, which she agreed to and she is going to be getting IM progesterone due to history of delivery. The patient was explained the risks, benefits, and alternatives of procedure and she was given the opportunity to ask questions. The patient desired to proceed. DESCRIPTION OF PROCEDURE: The patient was taken to the operating room where MAC anesthesia was performed without difficulty. She was prepared and draped in the dorsal lithotomy position with an Fernando stirrups. The cervix was exposed with a weighted speculum in the posterior fornix and right angle in the anterior fornix. The anterior and posterior lip of the cervix were grasped with the ring forcep and then an incision with 1-0 Ethibond was carried from 12 to 9 to 7 to 5, then to 3, and then to 1 and the knot was then secured appropriately the cut, after which the instruments were removed. Cervix was noted to be tight, closed and it was hemostatic. All instrument and pad counts were correct x2. The patient tolerated the procedure well. HERMAN SMITH /[id number]
== END 2021-01-31 13:36 | disposition home or self-care (01) ==
LOC: MW.SDS 09:19
PROVIDERS: ATTEND Obstetrics & Gynecology
DX: O34.31 Maternal care for cervical incompetence, first trimester (principal); O23.591 Infection of other part of genital tract in pregnancy, first trimester; O34.219 Maternal care for unspecified type scar from previous cesarean delivery; Z3A.14 14 weeks gestation of pregnancy; Z01.812 Encounter for preprocedural laboratory examination; Z20.822 Contact with and (suspected) exposure to COVID-19; Z87.51 Personal history of pre-term labor
CPT/HCPCS: 36415; 59320; 85025; 87635; J0131; J1200; J2704; J3010; J3490; 00948; U0002

== ENCOUNTER 2021-02-23 12:19 | Emergency (ER) | payer MEDICAID ==
[2021-02-23] MEDS ORDERED: Ondansetron 4 MG/2 ML SDV IVPUSH ONE (13:46)
[2021-02-23] MEDS ORDERED: Lactated Ringers 1,000 ML IV ONE (13:46)
--- NOTE | 2021-02-23 13:53 | EDM.PDOC ---
ED HPI GENERAL MEDICAL PROBLEM - General Chief Complaint: REGULATORY LAW SPECIALIST Problem Stated Complaint: NAUSEA AND DIZZINESS WITH EARLY Time Seen by Provider: 02/23/21 13:25 - History of Present Illness INITIAL COMMENTS - FREE TEXT/NARRATIVE: 25-year-old female presents to the emergency department with abdominal cramping. Patient is 18 weeks and starting last night she had what feels like contractions every 30 minutes lasting for about 30 seconds. No loss of fluids. Patient did have a cerclage placed recently. Patient also endorses nausea. No vomiting or diarrhea. No fevers or urinary symptoms. No exacerbating or alleviating factors Bilateral Abdominal Pain Score (Numeric/FACES): 5 - Related Data Allergies Allergy/AdvReac Type Severity Reaction Status Date / Time No Known Allergies Allergy Verified 02/23/21 13:39 Home Meds: Home Meds Ferrous Sulfate [Iron] 1 tab PO DAILY 01/31/21 [History] Pnv,Calcium 72/Iron/Folic Acid [ Vitamin Plus Low Iron] 1 tab PO DAILY 01/31/21 [History] Docusate Sodium [Colace] 100 mg PO BID #60 capsule 02/23/21 [Rx] Ondansetron [Zofran ODT] 4 mg PO Q6H PRN #24 tab.dis 02/23/21 [Rx] Past Medical History - Past Health History Medical/Surgical History: Denies Medical/Surgical History HEENT History: Reports: Other (See Below) Other HEENT History: glasses, dental braces Cardiovascular History: Reports: None Respiratory History: Reports: None Gastrointestinal History: Reports: None Genitourinary History: Reports: None REGULATORY LAW SPECIALIST History: Reports: Ectopic , , Other (See Below) Other REGULATORY LAW SPECIALIST History: Premature deliveries x 4; ; Ectopic in 03/2020 Musculoskeletal History: Reports: None Neurological History: Reports: None Psychiatric History: Reports: None Endocrine/Metabolic History: Reports: None Insulin Pump Model and Long Term Care Pharmacist: None Hematologic History: Reports: Iron Deficiency Other Hematologic History: iron transfusion Immunologic History: Reports: None Oncologic (Cancer) History: Reports: None Dermatologic History: Reports: None - Infectious Disease History Infectious Disease History: Reports: Other (See Below) Other Infectious Disease History: Chlamydia - Past Surgical History Head Surgeries/Procedures: Reports: None HEENT Surgical History: Reports: None Cardiovascular Surgical History: Reports: None Respiratory Surgical History: Reports: None GI Surgical History: Reports: None Female Surgical History: Reports: Section, Other (See Below) Other Female Surgeries/Procedures: laparoscopy for ectopic with right falopian tube removel Endocrine Surgical History: Reports: None Neurological Surgical History: Reports: None Musculoskeletal Surgical History: Reports: None Oncologic Surgical History: Reports: None Dermatological Surgical History: Reports: None Social & Family History - Family History Family Medical History: No Pertinent Family History Cardiac: Reports: Hypertension OBGYN: Reports: - Tobacco Use Tobacco Use Status *Q: Never Tobacco User - Caffeine Use Caffeine Use: Reports: None - Recreational Drug Use Recreational Drug Use: No ED ROS GENERAL - Review of Systems Review Of Systems: See Below Constitutional: Denies: Fever Respiratory: Denies: Shortness of Breath GI/Abdominal: Reports: Nausea. Denies: Abdominal Pain : Denies: Dysuria, Flank Pain Skin: Denies: Rash ED EXAM, GENERAL - Physical Exam Exam: See Below Free Text/Narrative:: CONSTITUTIONAL: well appearing in no acute distress SKIN: dry, and intact without rash HENT: Normocephalic, atraumatic, NECK: normal range of motion PULMONARY: normal chest rise and fall, no respiratory distress or stridor NEUROLOGIC: normal speech, moves all extremities, grossly non-focal GI: Avid abdomen. No objective abdominal tenderness MUSCULOSKELETAL: no gross deformities, atraumatic PSYCHIATRIC: normal mood and affect Course - Vital Signs Last Recorded V/S: Last Vital Signs Temp 36.6 C 02/23/21 13:35 Pulse 108 H 02/23/21 13:35 Resp 18 02/23/21 13:35 BP 131/77 02/23/21 13:35 Pulse Ox 100 02/23/21 13:35 - Orders/Labs/Meds Labs: Laboratory Tests 02/23/21 02/23/21 02/23/21 Range/Units 14:14 14:56 14:56 WBC 14.27 H (4.0-11.0) K/uL RBC 3.43 L (4.30-5.90) M/uL Hgb 9.0 L (12.0-16.0) g/dL Hct 27.5 L (36.0-46.0) % MCV 80.2 (80.0-98.0) fL MCH 26.2 L (27.0-32.0) pg MCHC 32.7 (31.0-37.0) g/dL RDW Std Deviation 46.5 (28.0-62.0) fl RDW Coeff of Alessandra 16 H (11.0-15.0) % Plt Count 314 (150-400) K/uL MPV 9.10 (7.40-12.00) fL Neut % (Auto) 75.7 (48.0-80.0) % Lymph % (Auto) 12.4 L (16.0-40.0) % Maverick % (Auto) 6.2 (0.0-15.0) % Eos % (Auto) 5.6 (0.0-7.0) % Baso % (Auto) 0.1 (0.0-1.5) % Neut # (Auto) 10.8 H (1.4-5.7) K/uL Lymph # (Auto) 1.8 (0.6-2.4) K/uL Maverick # (Auto) 0.9 H (0.0-0.8) K/uL Eos # (Auto) 0.8 H (0.0-0.7) K/uL Baso # (Auto) 0.0 (0.0-0.1) K/uL Nucleated RBC % 0.0 /100WBC Nucleated RBCs # 0 K/uL Sodium 134 L (136-145) mmol/L Potassium 4.4 (3.5-5.1) mmol/L Chloride 102 (98-107) mmol/L Carbon Dioxide 23.0 (21.0-32.0) mmol/L BUN 10 (7.0-18.0) mg/dL Creatinine 0.8 (0.6-1.0) mg/dL Est Cr Clr Drug Dosing 88.15 mL/min Estimated GFR (MDRD) > 60.0 ml/min Glucose 89 (74-106) mg/dL Calcium 8.8 (8.5-10.1) mg/dL Total Bilirubin 0.1 L (0.2-1.0) mg/dL AST 33 (15-37) IU/L ALT 35 (14-63) IU/L Alkaline Phosphatase 202 H (46-116) U/L Total Protein 7.1 (6.4-8.2) g/dL Albumin 3.0 L (3.4-5.0) g/dL Globulin 4.1 H (2.6-4.0) g/dL Albumin/Globulin Ratio 0.7 L (0.9-1.6) Lipase 82 (73-393) U/L Mery species DNA NEGATIVE (NEGATIVE) Gardnerella DNA Probe NEGATIVE (NEGATIVE) Trichomonas DNA Probe NEGATIVE (NEGATIVE) Meds: Medications Discontinued Medications Generic Name Dose Route Start Last Admin Trade Name Freq PRN Reason Stop Dose Admin Lactated Ringer's 1,000 mls @ 999 mls/hr 02/23/21 13:46 02/23/21 14:00 Ringers, Lactated IV 02/23/21 14:46 999 mls/hr .BOLUS ONE Administration Ondansetron HCl 4 mg 02/23/21 13:46 02/23/21 14:00 Ondansetron 4 Mg/2 Ml Sdv IVPUSH 02/23/21 13:47 4 mg ONETIME ONE Administration Departure - Departure Time of Disposition: 03:00 Disposition: Home, Self-Care 01 Condition: Good Clinical Impression: Intrauterine - Discharge Information Prescriptions: Docusate Sodium [Colace] 100 mg PO BID #60 capsule Ondansetron [Zofran ODT] 4 mg PO Q6H PRN #24 tab.dis PRN Reason: Nausea Instructions: How a Baby Grows During Referrals: PCP,None [Primary Care Provider] - Forms: ED Department Discharge Additional Instructions: Take your iron tablet 3 times a day. Use Zofran for vomiting. Return for inability to tolerate fluid, any significant vomiting, any abdominal pain or fever or vaginal bleeding or loss of fluids or more sustained concerns for contractions. Please follow-up with your REGULATORY LAW SPECIALIST 2 to 3 days. The following information is given to patients seen in the emergency department who are being discharged to home. This information is to outline your options for follow-up care. We provide all patients seen in our emergency department with a follow-up referral. The need for follow-up, as well as the timing and circumstances, are variable depending upon the specifics of your emergency department visit. If you don't have a primary care physician on staff, we will provide you with a referral. We always advise you to contact your personal physician following an emergency department visit to inform them of the circumstance of the visit and for follow-up with them and/or the need for any referrals to a consulting speci alist. The emergency department will also refer you to a specialist when appropriate. This referral assures that you have the opportunity for follow-up care with a specialist. All of these measure are taken in an effort to provide you with optimal care, which includes your follow-up. Primary care clinics in the area: [facility] - Primary Care [address] [place], [place] [id number] [place] [address] Under all circumstances we always encourage you to contact your private physician who remains a resource for coordinating your care. When calling for follow-up care, please make the office aware that this follow-up is from your recent emergency room visit. If for any reason you are refused follow-up, please contact the [facility] Emergency Department at and asked to speak to the emergency department charge nurse.
[2021-02-23 15:42] LABS: BLOOD UREA NITROGEN,BUN 10 mg/dL (7.0-18.0); CHLORIDE,CL 102 mmol/L (98-107); GLUCOSE RANDOM 89 mg/dL (74-106); LIPASE 82 U/L (73-393); POTASSIUM,K 4.4 mmol/L (3.5-5.1); SODIUM,NA 134 mmol/L (136-145)
== END 2021-02-23 17:42 | disposition home or self-care (01) ==
LOC: MW.ED 12:19
DX: O99.891 Other specified diseases and conditions complicating pregnancy (principal); R10.9 Unspecified abdominal pain; Z3A.18 18 weeks gestation of pregnancy
CPT/HCPCS: 36415; 80053; 83690; 85025; 87480; 87510; 87660; 96374; 99284; J2405; J7120

== ENCOUNTER 2021-03-13 01:25 | Emergency (ER) | payer MEDICAID ==
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
== END 2021-03-13 02:00 | disposition still patient (30) ==
LOC: MW.ED 01:25
DX: O9A.23 Injury, poisoning and certain other consequences of external causes complicating the puerperium (principal); S39.91XA Unspecified injury of abdomen, initial encounter; S09.90XA Unspecified injury of head, initial encounter; Z3A.21 21 weeks gestation of pregnancy; Y04.2XXA Assault by strike against or bumped into by another person, initial encounter
CPT/HCPCS: 99283

== ENCOUNTER 2021-05-17 22:20 | Emergency (ER) | payer MEDICAID ==
[2021-05-17] MEDS ORDERED: Ketorolac 15 MG/ML SDV IM ONE (23:18)
[2021-05-17] MEDS ORDERED: Cyclobenzaprine 10 MG Tab PO ONE (23:19)
--- NOTE | 2021-05-17 23:48 | EDM.PDOC ---
ED HPI GENERAL MEDICAL PROBLEM - General Chief Complaint: Upper Extremity Injury/Pain Stated Complaint: MUSCLE SPASM ARM Time Seen by Provider: 05/17/21 22:31 - History of Present Illness INITIAL COMMENTS - FREE TEXT/NARRATIVE: CHIEF COMPLAINT(S): Right arm spasm HISTORY OF PRESENT ILLNESS: This is a 26-year-old man who is currently and getting intramuscular steroid injections who comes to the emergency department with a chief complaint of right arm spasm. The patient states that throughout the day she was experiencing right arm spasm. She states that it was painful however since Arriving it has resolved. She states that she does not know if it is associated with the intramuscular injections but states that it did not seem to stop. She currently denies any pain and is requesting to go home. She denies any injury to her right arm and denies any other symptoms. REVIEW OF SYSTEMS: Skin:Denies a rash MSK: Positive for right arm spasm Neurological: Denies numbness, tingling, weakness PAST MEDICAL HISTORY: As per history of present illness and as reviewed below otherwise noncontributory. SURGICAL HISTORY: As per history of present illness and as reviewed below otherwise noncontributory. SOCIAL HISTORY: As per history of present illness and as reviewed below otherwise noncontributory. FAMILY HISTORY: As per history of present illness and as reviewed below otherwise noncontributory. EXAMINATION OF ORGAN SYSTEMS/BODY AREAS: Constitutional: Heart rate 110, respiratory rate 20 with an oxygen saturation of 97% on room air. Temperature 36.8. Blood pressure 128/83 General: Well-appearing woman who is in no acute distress Psychiatric: Appropriate mood and affect. Eyes: No scleral icterus or conjunctival erythema Cardiovascular: Regular, rate, and rhythm. No gallops, murmurs, or rubs. Bilateral upper extremity pulses symmetric and intact. No peripheral edema. No JVD. Respiratory: Lungs clear to auscultation bilaterally. No wheezes, rales, or rhonchi. Musculoskeletal: Normal range of motion. Skin: No lesions or abrasions. Neurological: Alert, GCS 15 strength and sensation intact MEDICAL DECISION MAKING AND COURSE IN THE ED WITH INTERPRETATION/REVIEW OF DIAGNOSTIC STUDIES: This is a 26-year-old and who is currently getting intramuscular steroid injections who comes to the emergency department with acute intermittent right arm spasms. At this time given the patient is the only medication that is safe for the patient is Tylenol and other methods such as massage and heating pad are recommended. At this time the patient is currently asymptomatic. I do not believe any further work-up is indicated. I did discuss strict return precautions with the patient. She was amenable discharge and had no further questions. DISPOSITION: The patient was discharged home in stable condition. The patient will follow up with primary care physician in 3 to 5 days for reevaluation CONDITION: Fair PROCEDURES: None FINAL IMPRESSION(S)/DIAGNOSES: 1. Acute right arm spasm Conor Moser M.D. - Related Data Allergies Allergy/AdvReac Type Severity Reaction Status Date / Time No Known Allergies Allergy Verified 05/17/21 22:37 Home Meds: Home Meds Pnv,Calcium 72/Iron/Folic Acid [ Vitamin Plus Low Iron] 1 tab PO DAILY 01/31/21 [History] Past Medical History - Past Health History Medical/Surgical History: Denies Medical/Surgical History HEENT History: Reports: Other (See Below) Other HEENT History: glasses, dental braces Cardiovascular History: Reports: None Respiratory History: Reports: None Gastrointestinal History: Reports: None Genitourinary History: Reports: None MACHINE SHOP INSPECTOR History: Reports: Ectopic , , Other (See Below) Other MACHINE SHOP INSPECTOR History: Premature deliveries x 4; ; Ectopic in 03/2020 Musculoskeletal History: Reports: None Neurological History: Reports: None Psychiatric History: Reports: None Endocrine/Metabolic History: Reports: None Insulin Pump Model and Television Receiver Analyzer: None Hematologic History: Reports: Iron Deficiency Other Hematologic History: iron transfusion Immunologic History: Reports: None Oncologic (Cancer) History: Reports: None Dermatologic History: Reports: None - Infectious Disease History Infectious Disease History: Reports: Other (See Below) Other Infectious Disease History: Chlamydia - Past Surgical History Head Surgeries/Procedures: Reports: None HEENT Surgical History: Reports: None Cardiovascular Surgical History: Reports: None Respiratory Surgical History: Reports: None GI Surgical History: Reports: None Female Surgical History: Reports: Section, Other (See Below) Other Female Surgeries/Procedures: laparoscopy for ectopic with right falopian tube removel Endocrine Surgical History: Reports: None Neurological Surgical History: Reports: None Musculoskeletal Surgical History: Reports: None Oncologic Surgical History: Reports: None Dermatological Surgical History: Reports: None Social & Family History - Family History Family Medical History: No Pertinent Family History Cardiac: Reports: Hypertension OBGYN: Reports: - Tobacco Use Second Hand Smoke Exposure: No - Caffeine Use Caffeine Use: Reports: None - Recreational Drug Use Recreational Drug Use: No Review of Systems - Review of Systems Review Of Systems: See Below ED EXAM, GENERAL - Physical Exam Exam: See Below Course - Vital Signs Last Recorded V/S: Last Vital Signs Temp 36.8 C 05/17/21 22:34 Pulse 102 H 05/18/21 00:00 Resp 16 05/18/21 00:00 BP 128/77 05/18/21 00:00 Pulse Ox 97 05/18/21 00:00 - Orders/Labs/Meds Meds: Medications Discontinued Medications Generic Name Dose Route Start Last Admin Trade Name Freq PRN Reason Stop Dose Admin Cyclobenzaprine HCl 10 mg 05/17/21 23:19 05/17/21 23:50 Cyclobenzaprine 10 Mg Tab PO 05/17/21 23:20 Not Given ONETIME ONE Ketorolac Tromethamine 15 mg 05/17/21 23:18 05/17/21 23:50 Ketorolac 15 Mg/Ml Sdv IM 05/17/21 23:19 Not Given ONETIME ONE Departure - Departure Time of Disposition: 23:47 Disposition: Home, Self-Care 01 Condition: Fair Clinical Impression: Muscle spasm - Discharge Information *PRESCRIPTION DRUG MONITORING PROGRAM REVIEWED*: No *COPY OF PRESCRIPTION DRUG MONITORING REPORT IN PATIENT GAYLE: No Instructions: Muscle Cramps and Spasms, [id number] Referrals: Justine Ruiz [employer] [employer] [Primary Care Provider] - Forms: ED Department Discharge Additional Instructions: You were evaluated today on an emergent basis. As discussed please continue to do the stretching and use a heating pad 20 minutes 4 times a day. Please use Tylenol 500 mg to 1000 mg every 6 hours for pain relief. Please keep your apartment tomorrow. [facility] [address] [place] [id number] [facility] [address] [place] [address] [facility] [address] [place] [id number] [facility] [address] [place] [id number] The patient is informed of any results of their evaluation and diagnostic workup and all questions are answered. They are given discharge instructions and return precautions. The patient is stable for discharge. The patient states they understand and agree with the plan and that they will return if their symptoms get worse or if they have any new concerns. The following information is given to patients seen in the emergency department who are being discharged to home. This information is to outline your options for follow-up care. We provide all patients seen in our emergency department with a follow-up referral. The need for follow-up, as well as the timing and circumstances, are variable depending upon the specifics of your emergency department visit. If you don't have a primary care physician on staff, we will provide you with a referral. We always advise you to contact your personal physician following an emergency department visit to inform them of the circumstance of the visit and for follow-up with them and/or the need for any referrals to a consulting specialist. The emergency department will also refer you to a specialist when appropriate. This referral assures that you have the opportunity for follow-up care with a specialist. All of these measure are taken in an effort to provide you with optimal care, which includes your follow-up. Under all circumstances we always encourage you to contact your private physician who remains a resource for coordinating your care. When calling for follow-up care, please make the office aware that this follow-up is from your recent emergency room visit. If for any reason you are refused follow-up, please contact the [facility] Emergency Department at and asked to speak to the emergency department charge nurse. Sepsis Event Note (ED) - Evaluation Sepsis Screening Result: No Definite Risk
== END 2021-05-18 | disposition home or self-care (01) ==
LOC: MW.ED 22:20
DX: O99.891 Other specified diseases and conditions complicating pregnancy (principal); M62.838 Other muscle spasm; Z3A.30 30 weeks gestation of pregnancy
CPT/HCPCS: 99283